=== PATIENT | female | born 1965 | race Hispanic/Latino ===

== ENCOUNTER 2023-11-27 08:22 | Observation (INO) | payer OTHER, SELFPAY ==
--- OUTSIDE RECORDS SUMMARY | 2023-11-27 08:27 | XMS REPORT | Continuity of Care Document ---
Author Name Unknown Address [address] [facility] [address] [place], [place] [id number] [place] [address] thconnect Address [address] [facility] [address] [place] [address] Care Team Providers Care Spanish Linguist Name Role Phone PCP, PATIENT DOES NOT HAVE A Primary Care Physic nia Unavailable ROWAN GOMEZ Attending Clinician Unavailable KODAK SNYDER Attending Clinician Unavailable VIKTOR CRUZ Attending Clinician Unavailab le [id number] Attending Clinician Unavailable YAEL WARREN Attending Clinician Unava ilable [id number] Attending Clinician Unavailable Tamar Grewal Attending Clinician [phone] Tamar MUELLER Attending Clinician Unavailable WHITNEY CASTILLO Attending Clinician UnavailCARMEN Oliveira Attending Clinician Unavailable Carmen Magallanes DO Attending Clinician + Doctor Unassigned, [place] Attending Clinician U Kristy Garza Attending Clinician [phone] Olivia Vargas MD Attending Clinician + OLIVIA VARGAS Attending Clinician Unavailable CARMEN MAGALLANES Admitting Clinician Unavailable KRISTY STRICKLAND Admitting Clinician Unavailable Payers Payer Name Policy Type Policy Number Effective Date Expirati on Date Source [facility] JIMBO WINTER COPAY FOCUS 9 [id number] 2023 00:00:00 COMMERCIAL NON-CONTRACT GENERIC [id number] 2023 00:00:00 [facility] [id number] 2015 00:00:00 Problems Condition Name Condition Details Condition Category Status Onset Date Resolution Date Last Treatment Date Treating Clinician Comments Source Acute serous otitis media, right ear Acute serous otitis media, right ear Disease Active 05-20 00:00: 00 Adeline Gudino Externa l No known active problems No known active problems Disease [facility] Allergies, Adverse Reactions, Alerts Allergy Name Allergy Type Status Severity Reaction(s) Onset Date Inactive Date Treating Clinician Comments Source NO KNOWN ALLERGIE S Drug Class Active [facility] Social History Social Habit Start Date Stop Date Quantity Comments Source [facility] intake 2023-10-12 00:00:00 2023-10-12 00:00:00 Current drinker of alcohol (finding) Adeline Ca - External Alcohol intake 2023-05-11 00:00:00 2023-05-11 00:00:00 Current drinker of alcohol (finding) Adeline Ca - External Alcohol Comment 2023-04-06 00:00:00 2023-04-06 00:00:00 occasionally Adeline Ca - External Tobacco use and exposure 2023-04-06 00:00:00 2023-04-06 00:00:00 Smokeless tobacco non-user Adeline Ca - External History of Social function 2023-04-06 00:00:00 2023-04-06 00:00:00 Adeline Ca - External Exposure to SARS-CoV-2 (event) 2022-01-07 00:00:00 2022-01-17 07:46:00 Not sure [facility] Sex assigned at 1965 00:00:00 1965 00:[birth year]:00 Adeline Gudino External Smoking Status Start Date Stop Date Source Tobacco smoking consumption unknown [facility] Never smoked tobacco Adeline Jack Medications Ordered Medication Name Filled Medication Name Start Date Stop Date Current Medication? Ordering Clinician Indication Dosage Frequency Signature (SIG) Comments Components Source Ibuprofen (MOTRIN) 200 MG oral Tablet 10-11 10:11: 46 Yes 200mg Q.25D Take 1 tablet (200 mg total) by mouth every 6 hours as needed. Adeline mancia Pregabalin (Lyrica) 50 MG oral Capsule 10-11 00:00: 11-11 04:59 :00 Yes [id number] 50mg Q.5D Take 1 capsule (50 mg total) by mouth 2 times daily. Adeline mancia Folic Acid 1 MG oral tablet 10-07 00:00: 00 Yes [id number] TAKE 1 TABLET(1 MG) BY MOUTH DAILY. EXCEPT FOR DAYS DOING METHOTREXA TE Adeline mancia predniSONE (DELTASONE) 5 MG oral Tablet 09-26 00:00: 10-27 04:59 :00 Yes [id number] 15mg QD Take 3 tablets (15 mg total) by mouth daily. Adeline mancia Celecoxib 200 MG oral Capsule 09-05 00:00: 00 Yes [id number] 200mg Q.5D Take 1 capsule (200 mg total) by mouth 2 times daily as needed for pain. Adeline mancia Ibuprofen (MOTRIN) 200 MG oral Tablet 08-30 14:52: 37 Yes 200mg Q.25D Take 1 tablet (200 mg total) by mouth every 6 hours as needed. Adeline mancia Certolizuma b Pegol (Cimzia Starter Kit) 6 X 200 MG/ML subcutaneou s Prefilled Syringe Kit 08-30 00:00: 00 Yes [id number] 400 mg every 2 weeks for 3 doses then 400 mg every 4 weeks. Adeline mancia predniSONE (DELTASONE) 5 MG oral Tablet 08-30 00:00: 00 09-30 04:59 :00 Yes [id number] 15mg QD Take 3 tablets (15 mg total) by mouth daily. Adeline mancia Tofacitinib Citrate ER (Xeljanz XR) 11 MG oral TABLET SR 24 HR 7-09 00:00: 00 08-30 00:00 :00 No 11mg QD Take 11 mg by mouth daily. Adeline mancia Famotidine (PEPCID) 20 MG oral tablet 7-05 00:00: 00 Yes [id number] 20mg Q.5D Take 1 tablet (20 mg total) by mouth 2 times daily. Adeline mancia Ibuprofen (MOTRIN) 200 MG oral Tablet - 15:56: 38 Yes 200mg Q.25D Take 1 tablet (200 mg total) by mouth every 6 hours as needed. Adeline mancia Triamcinolo ne Acetonide 0.1 % apply externally Cream 08-02 00:00: 00 08-31 04:59 :00 No [id number] Apply to affected area twice a day. Adeline mancia Ibuprofen (MOTRIN) 200 MG oral Tablet -31 14:35: 34 Yes 200mg Q.25D Take 1 tablet (200 mg total) by mouth every 6 hours as needed. Adeline mancia Pregabalin (Lyrica) 50 MG oral Capsule -31 00:00: 00 10-11 00:00 :00 No [id number] 50mg Q.5D Take 1 capsule (50 mg total) by mouth 2 times daily. Adeline mancia Folic Acid 1 MG oral tablet -28 00:00: 00 Yes [id number] TAKE 1 TABLET(1 MG) BY MOUTH DAILY. EXCEPT FOR DAYS DOING METHOTREXA TE Adeline mancia Celecoxib 200 MG oral Capsule -23 00:00: 00 Yes [id number] 200mg Q.5D Take 1 capsule (200 mg total) by mouth 2 times daily as needed for pain. Adeline mancia Tofacitinib Citrate ER (Xeljanz XR) 11 MG oral TABLET SR 24 HR 06-06 00:00: 00 08-06 04:59 :00 No [id number] 11mg Take 11 mg by mouth daily. Adeline mancia methylpredn isolone sod succ (SOLU-MEDRO L) injection 125 mg 05-30 00:15: 00 05-29 23:26 :00 No 125mg 125 mg, Intravenou s, ONCE, 1 dose, On Sun05/30/23 at 1915, [facility] diphenhydrA MINE (BENADRYL) injection 25 mg 05-30 00:15: 00 05-29 23:23 :00 No 25mg 25 mg, Slow IV Push, ONCE, 1 dose, On Sun05/30/23 at 1915, STAT [facility] famotidine (PEPCID (PF)) injection 20 mg 05-29 23:15: 00 05-29 23:23 :00 No 20mg 20 mg, Slow IV Push, ONCE, 1 dose, On Sun05/30/23 at 1815, [facility] predniSONE 20 mg tablet 05-29 00:00: 00 Yes [id number] 1 PO BID x 4 days [facility] Adalimumab (Humira, 2 Syringe,) 40 MG/0.4ML subcutaneou s Prefilled Syringe Kit (Citrate-fr ee) 05-20 15:42: 55 05-20 00:00 :00 No Inject into the skin. Adeline mancia Ibuprofen (MOTRIN) 200 MG oral Tablet 05-20 15:38: 59 Yes 200mg Q.25D Take 1 tablet (200 mg total) by mouth every 6 hours as needed. Adeline mancia Celecoxib (CeleBREX) 200 MG oral Capsule 05-20 00:00: 00 Yes [id number] 200mg Take 1 capsule (200 mg total) by mouth 2 times daily. Adeline mancia Amoxicillin -Pot Clavulanate 500-125 MG oral Tablet 05-20 00:00: 00 08-02 00:00 :00 No [id number] 1{tbl} Take 1 tablet by mouth every 12 hours. Adeline mancia Tofacitinib Citrate ER (Xeljanz XR) 11 MG oral TABLET SR 24 HR 05-13 00:00: 00 05-20 00:00 :00 No [id number] 11mg Take 11 mg by mouth daily. Adeline mancia Famotidine (PEPCID) 20 MG oral tablet 05-10 12:32: 48 05-10 00:00 :00 No 20mg Take 1 tablet (20 mg total) by mouth 2 times daily. Adeline mancia predniSONE (DELTASONE) 5 MG oral Tablet 05-10 12:32: 48 05-10 00:00 :00 No 5mg Take 1 tablet (5 mg total) by mouth daily. Adeline mancia Ibuprofen (MOTRIN) 200 MG oral Tablet 05-10 10:52: 44 Yes 200mg Q.25D Take 1 tablet (200 mg total) by mouth every 6 hours as needed. Adeline mancia Adalimumab (Humira, 2 Pen,) 40 MG/0.8ML subcutaneou s Pen-injecto r Kit 05-10 10:52: 29 Yes 40mg Inject 40 mg into the skin. Adeline mancia Humira, 2 Pen, 40 MG/0.4ML subcutaneou s Pen-injecto r Kit (Citrate-fr ee) 05-10 00:00: 00 Yes Adeline mancia Famotidine (PEPCID) 20 MG oral tablet 05-10 00:00: 00 08-09 04:59 :00 No [id number] 20mg Take 1 tablet (20 mg total) by mouth 2 times daily. Adeline mancia predniSONE (DELTASONE) 5 MG oral Tablet 05-10 00:00: 00 06-10 04:59 :00 No [id number] 5mg Take 1 tablet (5 mg total) by mouth daily. Adeline mancia Methotrexat e 25 MG/ML subcutaneou s Solution Prefilled Syringe 04-06 18:30: 04-06 00:00 :00 No 25mg Inject 25 mg into the skin once a week. Adeline mancia Folic Acid 1 MG oral tablet 04-06 18:30: 26 04-06 00:00 :00 No 1mg Take 1 tablet (1 mg total) by mouth daily Except for days doing methotrexa te. Adeline mancia Famotidine (PEPCID) 20 MG oral tablet 04-06 10:34: 42 Yes 20mg Take 1 tablet (20 mg total) by mouth 2 times daily. Adeline mancia Adalimumab (Humira, 2 Pen,) 40 MG/0.8ML subcutaneou s Pen-injecto r Kit 04-06 10:34: 42 Yes 40mg Inject 40 mg into the skin. Adeline mancia predniSONE (DELTASONE) 5 MG oral Tablet 04-06 10:34: 42 Yes 5mg Take 1 tablet (5 mg total) by mouth daily. Adeline mancia Folic Acid 1 MG oral tablet 04-06 00:00: 00 07-05 04:59 :00 No [id number] 1mg Take 1 tablet (1 mg total) by mouth daily Except for days doing methotrexa te. Adeline mancia Methotrexat e 25 MG/ML subcutaneou s Solution Prefilled Syringe 04-06 00:00: 00 05-20 00:00 :00 No [id number] 17.5mg Inject 17.5 mg into the skin once a week. Adeline mancia Methotrexat e 50 MG/2ML injection Solution 03-14 00:00: 00 Yes INJECT 0.7 ML UNDER THE SKIN EVERY WEEK Adeline mancia FLUTICASONE PROPIONATE, NASAL, (Flonase Allergy Relief) 50 MCG/ACT nasal Suspension 02-21 00:00: 00 Yes Adeline mancia Cetirizine (ZYRTEC) 10 MG oral Tablet 1-10 00:00: 00 Yes Adeline mancia hydrOXYzine HCl 25 MG oral Tablet 2022-02 2- 00:00: 00 Yes Adeline mancia Albuterol (PROVENTIL) (2.5 MG/3ML) 0.083% inhalation Inhalant Solution 2022-02 2- 00:00: 00 Yes Adeline mancia TAKE 1 TABLET AT BEDTIME. 1-06 00:00: 00 No Dose Unknown 2021-02 2-16 00:00: 00 No Dose Unknown 2021-02-16 00:00: 00 No Dose Unknown 2021-02-16 00:00: 00 No Dose Unknown 2021-02-16 00:00: 00 No TAKE 1 TABLET DAILY. 2021-02 2-15 00:00: 00 No TAKE 1 TABLET BY MOUTH ONCE DAILY 2021-02 2-15 00:00: 00 No TAKE 1 TABLET BY MOUTH ONCE DAILY NEEDED 2021-02 2-15 00:00: 00 No Dose Unknown 2021-02 2-15 00:00: 00 No TAKE 1 TABLET BY MOUTH ONCE DAILY 2021-02 2-15 00:00: 00 No TAKE 1 TABLET BY MOUTH TWICE DAILY 2021-02 2-15 00:00: 00 No TAKE 4 TABLETS BY MOUTH ONCE DAILY FOR 1 WEEK, THEN TAKE 3 TABLETS ONCE A DAY FOR 1 WEEK, THEN TAKE 2 TABLETS ONCE A DAY FOR 1 WEEK, THEN TAKE 1 TABLET ONCE A DAY FOR 8 WEEKS 2021-02 2-15 00:00: 00 No TAKE 1 TABLET DAILY. 2021-02 2-15 00:00: 00 No TAKE 1 TABLET BY MOUTH ONCE DAILY 2021-02 2-15 00:00: 00 No TAKE 1 TABLET BY MOUTH ONCE DAILY NEEDED 2021-02 2-15 00:00: 00 No Dose Unknown 2021-02 2-15 00:00: 00 No TAKE 1 TABLET BY MOUTH ONCE DAILY 2021-02 2-15 00:00: 00 No TAKE 1 TABLET BY MOUTH TWICE DAILY 2021-02 2-15 00:00: 00 No TAKE 4 TABLETS BY MOUTH ONCE DAILY FOR 1 WEEK, THEN TAKE 3 TABLETS ONCE A DAY FOR 1 WEEK, THEN TAKE 2 TABLETS ONCE A DAY FOR 1 WEEK, THEN TAKE 1 TABLET ONCE A DAY FOR 8 WEEKS 2021-02 00:00: 00 No ketorolac (TORADOL) injection 15 mg 2021-02 18:00: 00 01-18 17:59 :00 No 15mg 15 mg, Slow IV Push, Q6H, 4 doses, First dose on Sun01/17/22 at 1200, Last dose on Sun01/18/22 at 0600, Routine [facility] HYDROcodone -acetaminop hen (NORCO) 10-325 mg tablet 1 tablet 2021-02 16:00: 00 01-17 15:10 :00 No 1{tbl} 1 tablet, Oral, ONCE, 1 dose, On Sun01/17/22 at 1000, Routine [facility] NaCl 0.9% (NS) bolus infusion 1,000 mL 2021-02 14:45: 00 01-17 15:30 :00 No 1000mL at 999 mL/hr, 1,000 mL, IV Piggyback, ONCE, 1 dose, On Sun01/17/22 at 0845, STAT [facility] ondansetron (ZOFRAN (PF)) injection 4 mg 2021-02 13:45: 00 01-17 13:55 :00 No 4mg 4 mg, Slow IV Push, ONCE, 1 dose, On Sun01/17/22 at 0745, Routine [facility] naproxen sodium 550 mg tablet 2021-02 00:00: 00 Yes [id number] 9100 550mg Take 1 tablet by mouth 2 (two) times daily with meals. [facility] methylPREDN ISolone 4 mg tablets 2021-02 00:00: 00 Yes [id number] 9100 Take by mouth SEE-INSTRU CTIONS. follow package directions [facility] methocarbam oL 500 mg tablet 2021-02 00:00: 00 01-23 05:59 :00 No [id number] 500mg Take 1 tablet by mouth 3 (three) times daily for 5 days. [facility] TAKE 1 TABLET AT BEDTIME. 2021-02 0-15 00:00: 00 No FENTanyl PF (SUBLIMAZE (PF)) injection 50 mcg 08-18 03:00: 00 08-18 03:10 :00 No 50ug 50 mcg, Slow IV Push, ONCE, 1 dose, On Sun08/17/21 at 2200, STAT [facility] NaCl 0.9% (NS) bolus infusion 1,000 mL 08-18 02:00: 00 08-18 03:10 :00 No 1000mL at 999 mL/hr, 1,000 mL, IV Infusion, ONCE, 1 dose, On Sun08/17/21 at 2100, STAT [facility] ketorolac (TORADOL) injection 15 mg 08-18 02:00: 00 08-18 02:06 :00 No 15mg 15 mg, Slow IV Push, ONCE, 1 dose, On Sun08/17/21 at 2100, [facility] FENTanyl PF (SUBLIMAZE (PF)) injection 50 mcg 08-18 01:30: 00 08-18 01:25 :00 No 50ug 50 mcg, Slow IV Push, ONCE, 1 dose, On Sun08/17/21 at 2030, STAT [facility] NaCl 0.9% (NS) bolus infusion 1,000 mL 08-18 01:15: 00 08-18 03:10 :00 No 1000mL at 999 mL/hr, 1,000 mL, IV Infusion, ONCE, 1 dose, On Sun08/17/21 at 2015, [facility] acetaminoph en-codeine 300-30 mg tablet 08-17 00:00: 00 09-15 04:59 :00 No [id number] 1{tbl} Take 1 tablet by mouth every 6 (six) hours as needed for Pain (scale 4-6) for up to 28 days. Indication s: acute pain [facility] Dose Unknown 11 00:00: 00 No Dose Unknown 11 00:00: 00 No Dose Unknown 2022-0 5-10 00:00: 00 No Dose Unknown 2022-0 5-10 00:00: 00 No Dose Unknown 2022-0 5-09 00:00: 00 No Dose Unknown 2022-0 5-09 00:00: 00 No Dose Unknown 2022-0 5-06 00:00: 00 No Dose Unknown 2022-0 5-06 00:00: 00 No Dose Unknown 2022-0 5-06 00:00: 00 No Dose Unknown 2022-0 5-06 00:00: 00 No Dose Unknown 2022-0 5-06 00:00: 00 No Dose Unknown 2022-0 5-06 00:00: 00 No Dose Unknown 2022-0 5-06 00:00: 00 No Dose Unknown 2022-0 5-06 00:00: 00 No Dose Unknown 2022-0 5-06 00:00: 00 No Dose Unknown 2022-0 5-06 00:00: 00 No Dose Unknown 2022-0 5-06 00:00: 00 No Dose Unknown 2022-0 5-06 00:00: 00 No Dose Unknown 2022-0 3-22 00:00: 00 No Dose Unknown 2022-0 3-22 00:00: 00 No Dose Unknown 2022-0 3-22 00:00: 00 No Dose Unknown 2022-0 3-22 00:00: 00 No Dose Unknown 2022-0 3-22 00:00: 00 No Dose Unknown 2022-0 3-22 00:00: 00 No Dose Unknown 2022-0 3-22 00:00: 00 No Dose Unknown 2022-0 3-22 00:00: 00 No Dose Unknown 2022-0 3-22 00:00: 00 No Dose Unknown 2022-0 3-22 00:00: 00 No TAKE 1 TABLET AT BEDTIME. 2022-0 2-01 00:00: 00 No Dose Unknown 2022-0 2-01 00:00: 00 No TAKE 1 TABLET AT BEDTIME. 2022-0 2-01 00:00: 00 No Dose Unknown 2022-0 2-01 00:00: 00 No Dose Unknown 2021-1 0-20 00:00: 00 No Dose Unknown 2021-1 0-20 00:00: 00 No Dose Unknown 2021-0 8-04 00:00: 00 No Dose Unknown 2020-0 8-04 00:00: 00 No TAKE 1 TABLET AT BEDTIME. 0 7- 00:00: 00 No sertraline 50 mg tablet 0 7 00:00: 00 No 1mg Dose Unknown 0 08-18 00:00: 00 No TAKE 1 TABLET AT BEDTIME. 0 08-18 00:00: 00 No sertraline 50 mg tablet 0 7 00:00: 00 No 1mg Dose Unknown 0 08-18 00:00: 00 No sertraline 50 mg tablet 0 6 00:00: 00 No 1mg mirtazapine 7.5 mg tablet 0 6 00:00: 00 No 1mg sertraline 50 mg tablet 0 6 00:00: 00 No 1mg mirtazapine 7.5 mg tablet 0 6 00:00: 00 No 1mg Dose Unknown 2020-0 5-26 00:00: 00 No Dose Unknown 2020-0 5-26 00:00: 00 No Dose Unknown 2020-0 5-26 00:00: 00 No Dose Unknown 2020-0 5-26 00:00: 00 No Dose Unknown 2020-0 5-12 00:00: 00 No Dose Unknown 2020-0 5-12 00:00: 00 No Dose Unknown 2020-0 3-01 00:00: 00 No Dose Unknown 2020-0 3-01 00:00: 00 No Dose Unknown 2020-0 2-24 00:00: 00 No Dose Unknown 2020-0 2-24 00:00: 00 No Dose Unknown 2019-1 2-03 00:00: 00 No Dose Unknown 1 2-03 00:00: 00 No Dose Unknown 2019-0 9-09 00:00: 00 No Dose Unknown 0 9- 00:00: 00 No azithromyci n 250 mg tablet 0 06-10 00:00: 00 No mg azithromyci n 250 mg tablet 06-10 00:00: 00 No mg ipratropium -albuterol 0.5 mg-3 mg(2.5 mg base)/3 mL nebulizatio n soln 06-10 00:00: 00 No 1mg base)/3 mL ipratropium -albuterol 0.5 mg-3 mg(2.5 mg base)/3 mL nebulizatio n soln 06-10 00:00: 00 No 1mg base)/3 mL ibuprofen (ADVIL) 200 mg tablet 03-09 14:51: 10 Yes 200mg Take 200 mg by mouth every 6 (six) hours as needed. [facility] ibuprofen (MOTRIN) 600 mg tablet 03-09 00:00: 00 Yes 600mg Take 1 Tab by mouth every 6 (six) hours as needed for Pain (scale 4-6) for up to 30 doses. [facility] Immunizations Ordered Immunization Name Filled Immunization Name Date Status Comments Source Moderna COVID-19 Vaccine 2020-07-14 00:00:00 Completed Moderna COVID-19 Vaccine 2020-07-14 00:00:00 Completed Moderna COVID-19 Vaccine 2020-06-15 00:00:00 Completed Moderna COVID-19 Vaccine 2020-06-15 00:00:00 Completed Covid-19 Vaccine Moderna (Spikevax), Mrna-lnp, Bhavesh Protein, Pf Unknown Completed Adeline Ca External Covid-19 Vaccine Moderna (Spikevax), Mrna-lnp, Bhavesh Protein, Pf Unknown Completed Adeline Gudino External Covid-19 Vaccine Moderna (Spikevax), Mrna-lnp, Bhavesh Protein, Pf Unknown Completed Adeline Ca - External Covid-19 Vaccine Moderna (Spikevax), Mrna-lnp, Bhavesh Protein, Pf Unknown Completed Adeline Ca - External Covid-19 Vaccine Moderna (Spikevax), Mrna-lnp, Bhavesh Protein, Pf Unknown Completed Adeline Ca - External Vital Signs Vital Name Observation Time Observation Value Comments S ource Systolic blood pressure 2023-10-12 15:08:00 112 mm[Hg] Adeline Hirsch ld - External Diastolic blood pressure 2023-10-12 15:08:00 78 mm[Hg] Adeline Hirsch ld - External Heart rate 2023-10-12 15:08:00 112 /min Kelse y Seybold - External Body weight 2023-10-12 15:08:00 93.441 kg Jaquelin ey Seybold - External BMI 2023-10-12 15:08:00 36.49 kg/m2 Jaquelin ey Seybold - External Systolic blood pressure 2023-08-31 19:53:00 115 mm[Hg] Adeline Seybo ld - External Diastolic blood pressure 2023-08-31 19:53:00 79 mm[Hg] Adeline Seybo ld - External Heart rate 2023-08-31 19:53:00 102 /min Kelse y Seybold - External Body height 2023-08-31 19:53:00 160 cm Jaquelin ey Seybold - External Body weight 2023-08-31 19:53:00 92.534 kg Jaquelin ey Seybold - External BMI 2023-08-31 19:53:00 36.14 kg/m2 Jaquelin ey Seybold - External Systolic blood pressure 2023-08-03 20:40:00 115 mm[Hg] Adeline Seybo ld - External Diastolic blood pressure 2023-08-03 20:40:00 84 mm[Hg] Adeline Seybo ld - External Heart rate 2023-08-03 20:40:00 85 /min Kelse y Seybold - External Body temperature 2023-08-03 20:40:00 35.94 April Adeline Seybold - External Respiratory rate 2023-08-03 20:40:00 16 /min Adeline Seybold - External Body height 2023-08-03 20:40:00 160 cm Jaquelin ey Seybold - External Body weight 2023-08-03 20:40:00 93.441 kg Jaquelin ey Seybold - External BMI 2023-08-03 20:40:00 36.49 kg/m2 Jaquelin ey Seybold - External Oxygen saturation in Arterial blood by Pulse oximetry 2023-08-03 20:40:00 98 /min Adeline Seybo ld - External Systolic blood pressure 2023-07-13 19:36:00 128 mm[Hg] Adeline Seybo ld - External Diastolic blood pressure 2023-07-13 19:36:00 87 mm[Hg] Adeline Seybo ld - External Heart rate 2023-07-13 19:36:00 80 /min Kelse y Seybold - External Body weight 2023-07-13 19:36:00 90.719 kg Jaquelin ey Seybold - External BMI 2023-07-13 19:36:00 35.43 kg/m2 Jaquelin ey Seybold - External Systolic blood pressure 2023-05-31 00:00:00 111 mm[Hg] [facility] Diastolic blood pressure 2023-05-31 00:00:00 81 mm[Hg] [facility] Heart rate 2023-05-31 00:00:00 89 /min [facility] Body temperature 2023-05-31 00:00:00 37.22 April [facility] Respiratory rate 2023-05-31 00:00:00 21 /min [facility] Oxygen saturation in Arterial blood by Pulse oximetry 2023-05-31 00:00:00 96 /min [facility] Body height 2023-05-30 22:49:00 160 cm [facility] Body weight 2023-05-30 22:49:00 87.998 kg [facility] BMI 2023-05-30 22:49:00 34.37 kg/m2 [facility] Systolic blood pressure 2023-05-21 20:30:00 108 mm[Hg] Adeline Seybo ld - External Diastolic blood pressure 2023-05-21 20:30:00 64 mm[Hg] Adeline Seybo ld - External Heart rate 2023-05-21 20:30:00 98 /min Kelse y Seybold - External Body temperature 2023-05-21 20:30:00 36.83 April Adeline Seybold - External Respiratory rate 2023-05-21 20:30:00 16 /min Adeline Seybold - External Body height 2023-05-21 20:30:00 160 cm Jaquelin ey Seybold - External Body weight 2023-05-21 20:30:00 87.544 kg Jaquelin ey Seybold - External BMI 2023-05-21 20:30:00 34.19 kg/m2 Jaquelin ey Seybold - External Oxygen saturation in Arterial blood by Pulse oximetry 2023-05-21 20:30:00 98 /min Adeline Milianybo ld - External Systolic blood pressure 2023-05-11 15:55:00 117 mm[Hg] Adeline Seybo ld - External Diastolic blood pressure 2023-05-11 15:55:00 78 mm[Hg] Adeline Seybo ld - External Heart rate 2023-05-11 15:55:00 115 /min Kelse y Seybold - External Body weight 2023-05-11 15:55:00 87.998 kg Jaquelin ey Seybold - External BMI 2023-05-11 15:55:00 34.37 kg/m2 Jaquelin ey Seybold - External Systolic blood pressure 2023-04-06 16:24:00 107 mm[Hg] Adeline Seybo ld - External Diastolic blood pressure 2023-04-06 16:24:00 81 mm[Hg] Adeline Seybo ld - External Heart rate 2023-04-06 16:24:00 108 /min Kelse y Seybold - External Respiratory rate 2023-04-06 16:24:00 18 /min Adeline Seybold - External Body height 2023-04-06 16:24:00 160 cm Jaquelin ey Seybold - External Body weight 2023-04-06 16:24:00 87.816 kg Jaquelin ey Seybold - External BMI 2023-04-06 16:24:00 34.29 kg/m2 Jaquelin ey Seybold - External Systolic blood pressure 2022-01-17 15:00:00 152 mm[Hg] [facility] Diastolic blood pressure 2022-01-17 15:00:00 97 mm[Hg] [facility] Heart rate 2022-01-17 15:00:00 85 /min [facility] Respiratory rate 2022-01-17 15:00:00 14 /min [facility] Oxygen saturation in Arterial blood by Pulse oximetry 2022-01-17 15:00:00 98 /min [facility] Body temperature 2022-01-17 13:31:00 36.72 April [facility] Body weight 2022-01-17 13:31:00 90.719 kg [facility] BMI 2022-01-17 13:31:00 35.43 kg/m2 [facility] Heart rate 2021-08-18 03:05:00 93 /min [facility] Respiratory rate 2021-08-18 03:05:00 18 /min [facility] Oxygen saturation in Arterial blood by Pulse oximetry 2021-08-18 03:05:00 94 /min [facility] Systolic blood pressure 2021-08-18 03:05:00 103 mm[Hg] [facility] Diastolic blood pressure 2021-08-18 03:05:00 67 mm[Hg] [facility] Body temperature 2021-08-17 23:31:00 36.5 April [facility] Body height 2021-08-17 23:31:00 160 cm [facility] Body weight 2021-08-17 23:31:00 84.823 kg [facility] BMI 2021-08-17 23:31:00 33.13 kg/m2 [facility] BP Systolic 2022-02-16 14:51:00 117 mm[Hg] BP Diastolic 2022-02-16 14:51:00 82 mm[Hg] Weight Measured 2022-02-16 14:51:00 209.00 pounds Height Measured 2022-02-16 14:51:00 62.00 inches Body Temperature 2022-02-16 14:51:00 98.40 degrees Heart Rate 2022-02-16 14:51:00 115.00 /min Respiratory Rate 2022-02-16 14:51:00 BP Systolic 2022-02-13 10:18:00 BP Diastolic 2022-02-13 10:18:00 Weight Measured 2022-02-13 10:18:00 200.00 pounds Height Measured 2022-02-13 10:18:00 62.00 inches Body Temperature 2022-02-13 10:18:00 Heart Rate 2022-02-13 10:18:00 Respiratory Rate 2022-02-13 10:18:00 BP Systolic 2021-06-17 14:42:00 114 mm[Hg] BP Diastolic 2021-06-17 14:42:00 73 mm[Hg] Weight Measured 2021-06-17 14:42:00 187.40 pounds Height Measured 2021-06-17 14:42:00 62.60 inches Body Temperature 2021-06-17 14:42:00 98.10 degrees Heart Rate 2021-06-17 14:42:00 98.00 /min Respiratory Rate 2021-06-17 14:42:00 16.00 /min BP Systolic 2020-12-06 15:41:00 135 mm[Hg] BP Diastolic 2020-12-06 15:41:00 88 mm[Hg] Weight Measured 2020-12-06 15:41:00 184.60 pounds Height Measured 2020-12-06 15:41:00 62.60 inches Body Temperature 2020-12-06 15:41:00 99.30 degrees Heart Rate 2020-12-06 15:41:00 112.00 /min Respiratory Rate 2020-12-06 15:41:00 BP Systolic 2020-09-15 16:44:00 103 mm[Hg] BP Diastolic 2020-09-15 16:44:00 63 mm[Hg] Weight Measured 2020-09-15 16:44:00 177.20 pounds Height Measured 2020-09-15 16:44:00 62.60 inches Body Temperature 2020-09-15 16:44:00 98.30 degrees Heart Rate 2020-09-15 16:44:00 78.00 /min Respiratory Rate 2020-09-15 16:44:00 BP Systolic 2020-04-07 08:13:00 118 mm[Hg] BP Diastolic 2020-04-07 08:13:00 79 mm[Hg] Weight Measured 2020-04-07 08:13:00 183.80 pounds Height Measured 2020-04-07 08:13:00 62.60 inches Body Temperature 2020-04-07 08:13:00 98.00 degrees Heart Rate 2020-04-07 08:13:00 81.00 /min Respiratory Rate 2020-04-07 08:13:00 17.00 /min BP Systolic 2019-10-22 10:15:00 117 mm[Hg] BP Diastolic 2019-10-22 10:15:00 77 mm[Hg] Weight Measured 2019-10-22 10:15:00 187.80 pounds Height Measured 2019-10-22 10:15:00 62.60 inches Body Temperature 2019-10-22 10:15:00 98.70 degrees Heart Rate 2019-10-22 10:15:00 86.00 /min Respiratory Rate 2019-10-22 10:15:00 16.00 /min BP Systolic 2018-06-10 14:08:00 104 mm[Hg] BP Diastolic 2018-06-10 14:08:00 74 mm[Hg] Weight Measured 2018-06-10 14:08:00 185.20 pounds Height Measured 2018-06-10 14:08:00 Body Temperature 2018-06-10 14:08:00 98.10 degrees Heart Rate 2018-06-10 14:08:00 105.00 /min Respiratory Rate 2018-06-10 14:08:00 16.00 /min Procedures Procedure Date / Time Performed Performing Clinician Source CT ABDOMEN PELVIS WO CONTRAST 2022-01-17 13:53:00 Carmen Magallanes [facility] POCT TEST 2022-01-17 13:47:00 Shabnam Magallanes [facility] COMP. METABOLIC PANEL (58193) 2022-01-17 13:43:00 Singer Carmen [facility] CBC WITH DIFF 2022-01-17 13:43:00 Carmen Magallanes [facility] URINALYSIS 2022-01-17 13:39:00 Carmen Magallanes [facility] CONSENT/REFUSAL FOR DIAGNOSIS AND TREATMENT 2022-01-17 13:23:09 Doctor Unassigned, Conger [facility] URINALYSIS 2021-08-18 01:25:00 Kristy Strickland [facility] XR CHEST 1 VW 2021-08-18 00:48:00 Kristy Strickland [facility] EKG-12 LEAD 2021-08-18 00:43:08 Kristy Strickland [facility] LACTIC ACID WHOLE BLOOD 2021-08-18 00:27:00 Jessica Strickland [facility] COVID-19 (ID NOW RAPID TESTING) 2021-08-17 23:55:00 Kristy Strickland [facility] TROPONIN I 2021-08-17 23:53:00 Kristy Strickland [facility] COMP. METABOLIC PANEL (35553) 2021-08-17 23:53:00 Kristy Strickland [facility] CBC WITH DIFF 2021-08-17 23:53:00 Kristy Strickland [facility] PROTHROMBIN TIME / INR 2021-08-17 23:53:00 Ryanne Strickland [facility] N-TERMINAL PRO-BNP 2021-08-17 23:53:00 Manju Strickland [facility] NOTICE OF PRIVACY PRACTICES 2021-08-17 23:42:49 Doctor Unassigned, Conger [facility] CONSENT/REFUSAL FOR DIAGNOSIS AND TREATMENT 2021-08-17 23:26:34 Doctor Unassigned, Conger [facility] Plan of Care Planned Activity Planned Date Details Comments Source Goal Plan of Care Note [code = 58661-9] Goal Plan of Care Note [code = 91355-8] Goal Plan of Care Note [code = 78259-8] Goal Plan of Care Note [code = 23967-2] Goal Plan of Care Note [code = 47034-0] Goal Plan of Care Note [code = 00264-8] Goal Plan of Care Note [code = 71928-4] Goal Plan of Care Note [code = 91469-8] Goal Plan of Care Note [code = 06797-8] Goal Plan of Care Note [code = 42124-3] Goal Plan of Care Note [code = 78289-0] Goal Plan of Care Note [code = 67353-9] Goal Plan of Care Note [code = 90402-3] Goal Plan of Care Note [code = 98575-6] Goal Plan of Care Note [code = 17954-9] Goal Plan of Care Note [code = 08077-3] Goal Plan of Care Note [code = 69820-3] Goal Plan of Care Note [code = 74670-8] Goal Plan of Care Note [code = 42620-8] Goal Plan of Care Note [code = 29734-0] Goal Plan of Care Note [code = 74148-9] Goal Plan of Care Note [code = 91073-5] Goal Plan of Care Note [code = 16079-9] Goal Plan of Care Note [code = 10294-1] Goal Plan of Care Note [code = 09049-7] Goal Plan of Care Note [code = 39696-9] Goal Plan of Care Note [code = 64101-1] Goal Plan of Care Note [code = 29470-0] Goal Plan of Care Note [code = 55014-4] Goal Plan of Care Note [code = 80678-7] Goal Plan of Care Note [code = 41595-3] Goal Plan of Care Note [code = 20548-7] Goal Plan of Care Note [code = 68730-3] Goal Plan of Care Note [code = 67742-3] Goal Plan of Care Note [code = 37231-2] Goal Plan of Care Note [code = 91146-9] Goal Plan of Care Note [code = 18125-2] Goal Plan of Care Note [code = 63309-7] Goal Plan of Care Note [code = 87775-5] Goal Plan of Care Note [code = 23226-2] Goal Plan of Care Note [code = 34968-3] Goal Plan of Care Note [code = 61260-2] Goal Plan of Care Note [code = 06724-0] Goal Plan of Care Note [code = 33426-8] Goal Plan of Care Note [code = 47627-9] Goal Plan of Care Note [code = 09273-6] Goal Plan of Care Note [code = 75918-7] Goal Plan of Care Note [code = 49220-6] Goal Plan of Care Note [code = 09829-6] Goal Plan of Care Note [code = 88517-1] Goal Plan of Care Note [code = 25665-3] Goal Plan of Care Note [code = 61214-9] Goal Plan of Care Note [code = 48417-3] Goal Plan of Care Note [code = 09500-6] Encounters Start Date/Time End Date/Time Encounter Type Admission Type Attending [facility] Care Facility Care Department Encounter ID Source 2023-12-14 10:00:00 2023-12-14 10:00:00 Outpatient ROWAN GOMEZ [id number] Adeline Ca 2023-11-30 11:15:00 2023-11-30 11:15:00 Outpatient ROWAN GOMEZ [id number] [facility] 2023-11-27 00:00:00 2023-11-27 00:00:00 Outpatient VANNAZAKDOAK Ozuna ADELINE TOMPKINS [id number] Adeline Seybold 2023-11-22 00:00:00 2023-11-22 00:00:00 Outpatient GOMEZ, ROWAN TOMPKINS [id number] Adeline Seybold 2023-11-20 00:00:00 2023-11-20 00:00:00 Outpatient GOMEZ, ROWAN TOMPKINS [id number] Adeline Seybold 2023-11-16 00:00:00 2023-11-16 00:00:00 Outpatient GOMEZ, ROWAN TOMPKINS [id number] [facility] 2023-11-15 00:00:00 2023-11-15 00:00:00 Outpatient GOMEZ, ROWAN TOMPKINS [id number] [facility] 2023-10-12 10:00:00 2023-10-12 10:00:00 Outpatient GOMEZ, ROWAN TOMPKINS [id number] Adeline Seybold 2023-10-08 00:00:00 2023-10-08 00:00:00 Outpatient GOMEZ, ROWAN TOMPKINS [id number] Adeline Seybold 2023-09-27 00:00:00 2023-09-27 00:00:00 Outpatient GOMEZ, ROWAN TOMPKINS [id number] Adeline Seybold 2023-09-04 00:00:00 2023-09-04 00:00:00 Outpatient VIKTOR CRUZ ADELINE TOMPKINS [id number] Adeline Seybold 2023-08-31 15:30:00 2023-08-31 15:30:00 Outpatient YHO814Erasmo TOMPKINS [id number] Adeline Seybold 2023-08-31 15:00:00 2023-08-31 15:00:00 Outpatient GOMEZ, ROWAN TOMPKINS [id number] Adeline Seybold 2023-08-24 10:30:00 2023-08-24 10:30:00 Outpatient GOMEZ, ROWAN TOMPKINS [id number] Adeline Seybold 2023-08-19 00:00:00 2023-08-19 00:00:00 Outpatient ROWAN GOMEZ ADELINE TOMPKINS [id number] Adeline [facility] 2023-08-16 00:00:00 2023-08-16 00:00:00 Outpatient ROWAN GOMEZ ADELINE TOMPKINS [id number] Adeline [facility] 2023-08-03 16:00:00 2023-08-03 16:00:00 Outpatient YAEL WARREN ADELINE TOMPKINS [id number] Adeline [facility] 2023-07-13 15:20:00 2023-07-13 15:20:00 Outpatient ADITI ADELINE TOMPKINS [id number] [facility] 2023-07-13 14:45:00 2023-07-13 14:45:00 Outpatient GOMEZYAMILE EspinalGLADYS [facility]INS [id number] [facility] 10:30:00 2023-07-13 10:30:00 Outpatient ROWAN GOMEZ ADELINE TOMPKINS [id number] [facility] 2023-07-07 00:00:00 2023-07-07 00:00:00 Outpatient YAMILE GOMEZGLADYS TOMPKINS [id number] [facility] 2023-06-18 00:00:00 2023-06-18 00:00:00 Outpatient VIKTOR CRUZ ADELINE TOMPKINS [id number] [facility] 2023-06-07 00:00:00 2023-06-07 00:00:00 Outpatient YAMILE GOMEZGLADYS TOMPKINS [id number] [facility] 2023-05-30 17:50:00 2023-05-30 19:43:[address] [facility] [id number] [id number] [facility] 2023-05-30 17:50:00 2023-05-30 19:43:00 Emergency X Tamar MUELLER [facility] ERT [id number] [facility] 2023-05-21 15:30:00 2023-05-21 15:30:00 Outpatient VIKTOR CRUZ [id number] Adeline [facility] 2023-05-14 00:00:00 2023-05-14 00:00:00 Outpatient ROWAN GOMEZ [id number] [facility] 2023-05-11 11:25:00 2023-05-11 11:25:00 Outpatient LABRajeev TOMPKINS [id number] Adeline [facility] 2023-05-11 10:45:00 2023-05-11 10:45:00 Outpatient GOMEZ, ROWAN TOMPKINS [id number] Adeline [facility] 2023-05-04 11:00:00 2023-05-04 11:00:00 Outpatient PATRICIA, ROWAN TOMPKINS [id number] Adeline [facility] 2023-05-04 10:00:00 2023-05-04 10:00:00 Outpatient GOMEZ, ROWAN TOMPKINS ADELINE [id number] [facility] 2023-04-20 12:15:00 2023-04-20 12:15:00 Outpatient WHITNEY CASTILLO [id number] [facility] 2023-04-06 11:15:00 2023-04-06 11:15:00 Outpatient LABRajeev TOMPKINS [id number] [facility] 2023-04-06 10:30:00 2023-04-06 10:30:00 Outpatient PATRICIA, ROWAN TOMPKINS ADELINE [id number] [facility] 2023-02-21 16:49:21 2023-02-21 16:49:21 Outpatient SFA SFA [id number] Matias Matias Prashant 2023-02-01 13:58:18 2023-02-01 13:58:18 Outpatient SFA SFA [id number] Matias F Prashant 2023-01-25 16:07:59 2023-01-25 16:07:59 Outpatient SFA SFA [id number] Matias Matias Prashant 2023-01-22 14:22:05 2023-01-22 14:22:05 Outpatient SFA SFA [id number] Matias Cerda 2022-10-17 16:37:46 2022-10-17 16:37:46 Outpatient SFA [facility] [id number] Matias Cerda 2022-08-18 08:32:51 2022-08-18 08:32:51 Outpatient SFA [facility] [id number] Matias Cerda 2022-02-22 15:12:18 2022-02-22 15:12:18 Outpatient SFA [facility] [id number] Matias Cerda 2022-02-16 14:43:01 2022-02-16 14:43:01 Outpatient [facility] [id number] Matias Cerda 2022-02-16 00:00:00 2022-02-16 00:00:00 Outpatient Visit [id number] 2022-02-14 12:00:15 2022-02-14 12:00:15 Outpatient [facility] 102 Matias Cerda 2022-02-13 00:00:00 2022-02-13 00:00:00 Outpatient Visit [id number] 2949-12-06 07:33:00 2022-01-17 09:49:00 Emergency X CARMEN MAGALLANES [facility] ERT [id number] [facility] 2022-01-17 07:33:00 2022-01-17 09:49:00 Emergency Carmen Magallanes [facility] ..114 350.1.13.10 [id number] [id number] [facility] 2022-01-17 00:00:00 2022-01-17 00:00:00 Orders Only Doctor Unassigned, Conger [facility] 1.840.114 [id number] 4.2.7.2.686 [id number] [facility] 2021-08-17 18:40:00 2021-08-17 23:01:00 Emergency Kristy Strickland [facility] [id number] [id number] [id number] [id number] [facility] 2021-08-17 18:40:00 2021-08-17 23:01:00 Emergency X OLIVIA VARGAS [facility] ERT [id number] [facility] Results Test Description Test Time Test Comments Results Result Co mments Source [facility] ([id number])2022-01-17 14:12:06* Test Item Value Reference Range Interpretation Comme nts NA (test code = 2186290238) 140 mmol/L 135-145 K (test code = 5437793572) 4.1 mmol/L 3.5-5.0 CL (test code = 2420979677) 104 mmol/L 98-108 CO2 TOTAL (test code = 2601840753) 26 mmol/L 23-31 AGAP (test code = 3617205244) 2-16 BUN (test code = 1998086570) 23 mg/dL 7-23 GLUCOSE (test code = 4601069777) 125 mg/dL 70-110 H CREATININE (test code = 4357205736) 0.57 mg/dL 0.50-1.04 TOTAL BILI (test code = 5749064746) 0.9 mg/dL 0.1-1.1 CALCIUM (test code = 3030083666) 9.9 mg/dL 8.6-10.6 T PROTEIN (test code = 4960182925) 7.4 g/dL 6.3-8.2 ALBUMIN (test code = 3465196972) 4.4 g/dL 3.5-5.0 ALK PHOS (test code = 1807431704) 122 U/L 34-122 ALTv (test code = 1742-6) 68 U/L 5-35 H AST(SGOT) (test code = 6113918960) 44 U/L 13-40 H eGFR (test code = 8623872511) mL/min/1.73m2 JOSÉ (test code = JOSÉ) Association of Glomerular Filtration Rate (GFR) and Staging of Kidney Disease* + --+ --+ ------+| GFR (mL/min/1.73 m2) ?| With Kidney Damage ?| ?Without Kidney Damage+ --------+ --------+ +| ?>90 ?| ?Stage one ?| ? Normal ?+ ---+ ---+ -------+| ?60-89 ?| ?Stage two ?| ? Decreased GFR ? + --+ --+ ------+| ?30-59 ?| ?Stage three ?| ? Stage three ? + --+ --+ ------+| ?15-29 ?| ?Stage four ? | ? Stage four ?+ ---+ ---+ -------+| ?<15 (or dialysis) ? ?| ?Stage five ? | ? Stage five ?+ ---+ ---+ -------+ *Each stage assumes the associated GFR level has been in effect for at least three months. ?Stages 1 to 5, with or without kidney disease, indicate chronic kidney disease. Notes: Determination of stages one and two (with eGFR >59mL/min/1.73 m2) requires estimation of kidney damage for at least three months as defined by structural or functional abnormalities of the kidney, manifested by either:Pathological abnormalities or Markers of kidney damage (including abnormalities in the composition of the blood or urine or abnormalities in imaging tests). Lab Interpretation (test code = 75600-4) [facility] [id number] 13:47:00* Test Item Value Reference Range Interpretation Comme [facility] POCT PREG (test code = 1605) negative On board controls acceptable with C Line (test code = 3574) present POCT PREG LOT # (test code = 3575) [id number] POCT PREG TEST DATE ( test code = 3576) 2023-05-13 Lab Interpretation (test cod e = 29970-7) Normal [facility] / [id number] 00:32:31* Test Item Value Reference Range Interpretation Comme [facility] PROTIME PATIENT (test code = 5964-2) See_Comment [Automated [employer]] The system which generated this result transmitted reference range: 12.0 - 14.7 Seconds. The reference range was not used to interpret this result as normal/abnormal. INR (test code = 6301-6) Normal INR <1.1; Warfarin Therapeutic range 2.0 to 3.0 or 2.5 to 3.5, depending upon the indications. Lab Interpretation (test code = 39432-6) Normal [facility] [id number] 00:27:33* Test Item Value Reference Range Interpretation Comments TROPONIN I (test code = 9661844252) 0.001 ng/mL See_Comment [Automated message] The system which generated this result transmitted reference range: <=0.034. The reference range was not used to interpret this result as normal/abnormal. JOSÉ (test code = JOSÉ) Reference (Normal) Range (defined by the 99th percentile reference limit): <= 0.034 ng/mL Note: Cardiac troponin begins to rise 3-4 hours after the onset of ischemia. Repeat in 4-6 hours if the sample was drawn within 3-4 hours of the onset of the symptom and found normal. Diagnosis of myocardial injury is made with acute changes in cTn concentrations with at least one serial sample above the 99th percentile upper reference limit (URL), taken together with the patient's clinical presentation. Biotin has been reported to cause a negative bias, interpret results relative to patient's use of biotin. Lab Interpretation (test code = 83229-3) Normal [facility] [id number] 00:24:31* Test Item Value Reference Range Interpretation Comme nts NT-proBNP (test code = 0165114915) 230 pg/mL See_Comment H [Automated message] The system which generated this result transmitted reference range: <=125. The reference range was not used to interpret this result as normal/abnormal. JOSÉ (test code = JOSÉ) Biotin has been reported to cause a negative bias, interpret results relative to patient's use of biotin. Lab Interpretation (test code = 22639-0) [facility]normal [facility]OL[facility] PAN[facility] (93130)2021-08-18 00:15:50* Test Item Value Reference Range Interpretation Comme nts NA (test code = 3128527117) 137 mmol/L 135-145 K (test code = 4471365681) 4.1 mmol/L 3.5-5.0 CL (test code = 3293072525) 100 mmol/L 98-108 CO2 TOTAL (test code = 5914395742) 26 mmol/L 23-31 AGAP (test code = 0015154421) 2-16 BUN (test code = 6937946668) 20 mg/dL 7-23 GLUCOSE (test code = 6516784771) 110 mg/dL 70-110 CREATININE (test code = 1631024124) 0.69 mg/dL 0.50-1.04 TOTAL BILI (test code = 6136204074) 0.9 mg/dL 0.1-1.1 CALCIUM (test code = 1184078506) 9.6 mg/dL 8.6-10.6 T PROTEIN (test code = 4303237593) 7.1 g/dL 6.3-8.2 ALBUMIN (test code = 9252479158) 4.0 g/dL 3.5-5.0 ALK PHOS (test code = 9027564276) 141 U/L 34-122 H ALTv (test code = 1742-6) 30 U/L 5-35 AST(SGOT) (test code = 3724414880) 29 U/L 13-40 eGFR (test code = 1700122405) mL/min/1.73m2 JOSÉ (test code = JOSÉ) Association of Glomerular Filtration Rate (GFR) and Staging of Kidney Disease* + --+ --+ ------+| GFR (mL/min/1.73 m2) ?| With Kidney Damage ?| ?Without Kidney Damage+ --------+ --------+ +| ?>90 ?| ?Stage one ?| ? Normal ?+ ---+ ---+ -------+| ?60-89 ?| ?Stage two ?| ? Decreased GFR ? + --+ --+ ------+| ?30-59 ?| ?Stage three ?| ? Stage three ? + --+ --+ ------+| ?15-29 ?| ?Stage four ? | ? Stage four ?+ ---+ ---+ -------+| ?<15 (or dialysis) ? ?| ?Stage five ? | ? Stage five ?+ ---+ ---+ -------+ *Each stage assumes the associated GFR level has been in effect for at least three months. ?Stages 1 to 5, with or without kidney disease, indicate chronic kidney disease. Notes: Determination of stages one and two (with eGFR >59mL/min/1.73 m2) requires estimation of kidney damage for at least three months as defined by structural or functional abnormalities of the kidney, manifested by either:Pathological abnormalities or Markers of kidney damage (including abnormalities in the composition of the blood or urine or abnormalities in imaging tests). Lab Interpretation (test code = 93760-1) Abnormal [facility] WITH [id number] 00:13:49* Test Item Value Reference Range Interpretation Comme nts WBC (test code = 6690-2) See_Comment H [Automated message] The system which generated this result transmitted reference range: 4.30 - 11.10 10*3/?L. The reference range was not used to interpret this result as normal/abnormal. RBC (test code = 789-8) See_Comment [Automated message] The system which generated this result transmitted reference range: 3.93 - 5.25 10*6/?L. The reference range was not used to interpret this result as normal/abnormal. HGB (test code = 718-7) 13.6 g/dL 11.6-15.0 HCT (test code = 4544-3) 41.3 % 35.7-45.2 MCV (test code = 787-2) 89.2 fL 80.6-95.5 MCH (test code = 785-6) 29.4 pg 25.9-32.8 MCHC (test code = 786-4) 32.9 g/dL 31.6-35.1 RDW-SD (test code = 87056-6) 47.5 fL 39.0-49.9 RDW-CV (test code = 788-0) 14.7 % 12.0-15.5 PLT (test code = 777-3) See_Comment H [Automated message] The system which generated this result transmitted reference range: 166 - 358 10*3/?L. The reference range was not used to interpret this result as normal/abnormal. MPV (test code = 20154-0) 9.6 fL 9.5-12.9 NRBC/100 WBC (test code = 3120635965) See_Comment [Automated message] The system which generated this result transmitted reference range: 0.0 - 10.0 /100 WBCs. The reference range was not used to interpret this result as normal/abnormal. NRBC x10^3 (test code = 3849312624) <0.01 See_Comment [Automated message] The system which generated this result transmitted reference range: 10*3/?L. The reference range was not used to interpret this result as normal/abnormal. GRAN MAT (NEUT) % (test code = 770-8) 65.3 % IMM GRAN % (test code = 3576631107) 0.70 % LYMPH % (test code = 736-9) 25.9 % MONO % (test code = 5905-5) 7.2 % EOS % (test code = 713-8) 0.6 % BASO % (test code = 706-2) 0.3 % GRAN MAT x10^3(ANC) (test code = 9593001146) 11.05 10*3/uL 1.88-7.09 H IMM GRAN x10^3 (test code = 2331473603) 0.12 10*3/uL 0.00-0.06 H LYMPH x10^3 (test code = 731-0) 4.37 10*3/uL 1.32-3.29 H MONO x10^3 (test code = 742-7) 1.21 10*3/uL 0.33-0.92 H EOS x10^3 (test code = 711-2) 0.10 10*3/uL 0.03-0.39 BASO x10^3 (test code = 704-7) 0.05 10*3/uL 0.01-0.07 Lab Interpretation (test code = 39743-9) Abnormal [facility]THRITIS [id number] 07:00:32* Test Item Value Reference Range Interpretation Comme nts RHEUMATOID FACTOR, QUANT (test code = 3502) 209 IU/ML <14 H RESULTS RECHECKE D AND VERIFIED URIC ACID (test code = 2233) 4.1 MG/DL 2.7-6.1 SEDIMENTATION RATE (test code = 1017) 24 MM/HOUR 0-20 H ANTI-NUCLEAR ANTIBODIES (test code = 3506) NEGATIVE NEGATIVE Methodology is I ndirect Immunofluorescent Assay (IFA) with a titering system using [id number] cells (Hep2 cells transfected with SS-A/Ro). COMPREHENSIVE METABOLIC [id number] 01:17:07* Test Item Value Reference Range Interpretation Comme nts GLUCOSE (test code = 2216) 108 MG/DL 70-99 H BUN (test code = 2207) 19 MG/DL 6-20 CREATININE (test code = 2213) 0.74 MG/DL 0.60-1.30 eGFR (2020 CKD-EPI) (test code = 71597) 96 ML/MIN/1.73 >60 CALC BUN/CREAT (test code = 2235) 26 RATIO 6-28 SODIUM (test code = 2230) 142 MEQ/L 133-146 POTASSIUM (test code = 2227) 3.7 MEQ/L 3.5-5.4 CHLORIDE (test code = 5) 102 MEQ/L 95-107 CARBON DIOXIDE (test code = 2205) 22 MEQ/L 19-31 CALCIUM (test code = 2208) 10.1 MG/DL 8.5-10.5 PROTEIN, TOTAL (test code = 2228) 7.5 G/DL 6.1-8.3 ALBUMIN (test code = 2200) 4.4 G/DL 3.5-5.2 CALC GLOBULIN (test code = 2240) 3.1 G/DL 1.9-3.7 CALC A/G RATIO (test code = 2234) 1.4 RATIO 1.0-2.6 BILIRUBIN, TOTAL (test code = 2206) 0.2 MG/DL See_Comment [Automated me ssage] The system which generated this result transmitted reference range: <=1.2. The reference range was not used to interpret this result as normal/abnormal. ALKALINE PHOSPHATASE (test code = 2203) 125 U/L 40-133 AST (test code = 8) 23 U/L 9-40 ALT (test code = 2219) 27 U/L 5-40 C-REACTIVE [id number] 01:17:00* Test Item Value Reference Range Interpretation Comme nts C-REACTIVE PROTEIN (test code = 3513) 0.7 MG/DL <0.5 H UNLESS OTHERW ISE INDICATED, ALL TESTING PERFORMED ATCLINICAL PATHOLOGY [employer] [address] [place] [id number] ENVIRONMENTAL FIELD TECHNICIAN: LOCO VARMA M.D. CLIA NUMBER [id number] [facility] [place] [place]. [id number] ARTHRITIS [id number] 00:00:00* Test Item Value Reference Range Interpretation Comme nts RHEUMATOID FACTOR, QUANT (te st code = 3502) 209 IU/ML URIC ACID (test code = 2233) 4.1 MG/DL SEDIMENTATION RATE (test cod e = 1017) 24 MM/HOUR ANTI-NUCLEAR ANTIBODIES (kulwant t code = 3506) NEGATIVE COMPREHENSIVE METABOLIC [id number] 00:00:00* Test Item Value Reference Range Interpretation Comme nts GLUCOSE (test code = 2217) 108 MG/DL BUN (test code = 2208) 19 MG/DL CREATININE (test code = 2214) 0.74 MG/DL eGFR (2020 CKD-EPI) (test co de = 80544) 96 ML/MIN/1.73 CALC BUN/CREAT (test code = 2235) 26 RATIO SODIUM (test code = 2231) 142 MEQ/L POTASSIUM (test code = 2228) 3.7 MEQ/L CHLORIDE (test code = 2215) 102 MEQ/L CARBON DIOXIDE (test code = 2206) 22 MEQ/L CALCIUM (test code = 2209) 10.1 MG/DL PROTEIN, TOTAL (test code = 2229) 7.5 G/DL ALBUMIN (test code = 2201) 4.4 G/DL CALC GLOBULIN (test code = 2240) 3.1 G/DL CALC A/G RATIO (test code = 2234) 1.4 RATIO BILIRUBIN, TOTAL (test code = 2207) 0.2 MG/DL ALKALINE PHOSPHATASE (test code = 2204) 125 U/L AST (test code = 2218) 23 U/L ALT (test code = 2219) 27 U/L C-REACTIVE [id number] 00:00:00* Test Item Value Reference Range Interpretation Comme nts C-REACTIVE PROTEIN (test cod e = 3513) 0.7 MG/DL ARTHRITIS [id number] 00:00:00* Test Item Value Reference Range Interpretation Comme nts RHEUMATOID FACTOR, QUANT (te st code = 3502) 209 IU/ML URIC ACID (test code = 2233) 4.1 MG/DL SEDIMENTATION RATE (test cod e = 1017) 24 MM/HOUR ANTI-NUCLEAR ANTIBODIES (kulwant t code = 3506) NEGATIVE COMPREHENSIVE METABOLIC [id number] 00:00:00* Test Item Value Reference Range Interpretation Comme nts GLUCOSE (test code = 2217) 108 MG/DL BUN (test code = 2208) 19 MG/DL CREATININE (test code = 2214) 0.74 MG/DL eGFR (2020 CKD-EPI) (test co de = 41422) 96 ML/MIN/1.73 CALC BUN/CREAT (test code = 2235) 26 RATIO SODIUM (test code = 2231) 142 MEQ/L POTASSIUM (test code = 2228) 3.7 MEQ/L CHLORIDE (test code = 2215) 102 MEQ/L CARBON DIOXIDE (test code = 2206) 22 MEQ/L CALCIUM (test code = 2209) 10.1 MG/DL PROTEIN, TOTAL (test code = 2229) 7.5 G/DL ALBUMIN (test code = 2201) 4.4 G/DL CALC GLOBULIN (test code = 2240) 3.1 G/DL CALC A/G RATIO (test code = 2234) 1.4 RATIO BILIRUBIN, TOTAL (test code = 2207) 0.2 MG/DL ALKALINE PHOSPHATASE (test code = 2204) 125 U/L AST (test code = 2218) 23 U/L ALT (test code = 2219) 27 U/L C-REACTIVE [id number] 00:00:00* Test Item Value Reference Range Interpretation Comme nts C-REACTIVE PROTEIN (test cod e = 3513) 0.7 MG/DL CBC W/AUTO DIFF WITH [id number] 04:03:17* Test Item Value Reference Range Interpretation Comme nts WBC (test code = 1001) 9.4 K/UL 3.5-11.0 RBC (test code = 1002) 4.48 M/UL 3.80-5.40 HEMOGLOBIN (test code = 1003) 13.5 G/DL 11.5-15.5 HEMATOCRIT (test code = 1004) 40.2 % 34.0-45.0 MCV (test code = 1005) 89.7 fL 80.0-99.0 MCH (test code = 1006) 30.1 PG 25.0-33.0 MCHC (test code = 1007) 33.6 G/DL 31.0-36.0 RDW (test code = 1038) 14.5 % 11.5-15.0 NEUTROPHILS (test code = 1008) 60.3 % LYMPHOCYTES (test code = 1010) 29.9 % MONOCYTES (test code = 1011) 8.1 % EOSINOPHILS (test code = 1012) 1.1 % BASOPHILS (test code = 1013) 0.3 % NUCLEATED RBCS (test code = 1065) 0.0 /100 WBC'S See_Comment [Automated messa ge] The system which generated this result transmitted reference range: 0.0. The reference range was not used to interpret this result as normal/abnormal. PLATELET COUNT (test code = 1015) 350 K/UL 130-400 ABSOLUTE NEUTROPHILS (test code = 1066) 5.68 K/UL 1.50-7.50 ABSOLUTE LYMPHOCYTES (test code = 1067) 2.82 K/UL 1.00-4.00 ABSOLUTE MONOCYTES (test code = 1068) 0.76 K/UL 0.20-1.00 ABSOLUTE EOSINOPHILS (test code = 1040) 0.10 K/UL 0.00-0.50 ABSOLUTE BASOPHILS (test code = 1069) 0.03 K/UL 0.00-0.20 ABS NUCLEATED RBCS (test code = 01214) 0.00 K/UL 0.00-0.11 CBC W/AUTO [id number] 00:00:00* Test Item Value Reference Range Interpretation Comme nts WBC (test code = 1001) 9.4 K/UL RBC (test code = 1002) 4.48 M/UL HEMOGLOBIN (test code = 1003) 13.5 G/DL HEMATOCRIT (test code = 1004) 40.2 % MCV (test code = 1005) 89.7 fL MCH (test code = 1006) 30.1 PG MCHC (test code = 1007) 33.6 G/DL RDW (test code = 1038) 14.5 % NEUTROPHILS (test code = 1008) 60.3 % LYMPHOCYTES (test code = 1010) 29.9 % MONOCYTES (test code = 1011) 8.1 % EOSINOPHILS (test code = 1012) 1.1 % BASOPHILS (test code = 1013) 0.3 % NUCLEATED RBCS (test code = 1065) 0.0 /100WBC'S PLATELET COUNT (test code = 1015) 350 K/UL ABSOLUTE NEUTROPHILS (test c ode = 1066) 5.68 K/UL ABSOLUTE LYMPHOCYTES (test c ode = 1067) 2.82 K/UL ABSOLUTE MONOCYTES (test cod e = 1068) 0.76 K/UL ABSOLUTE EOSINOPHILS (test c ode = 1040) 0.10 K/UL ABSOLUTE BASOPHILS (test cod e = 1069) 0.03 K/UL ABS NUCLEATED RBCS (test cod e = 61952) 0.00 K/UL CBC W/AUTO [id number] 00:00:00* Test Item Value Reference Range Interpretation Comme nts WBC (test code = 1001) 9.4 K/UL RBC (test code = 1002) 4.48 M/UL HEMOGLOBIN (test code = 1003) 13.5 G/DL HEMATOCRIT (test code = 1004) 40.2 % MCV (test code = 1005) 89.7 fL MCH (test code = 1006) 30.1 PG MCHC (test code = 1007) 33.6 G/DL RDW (test code = 1038) 14.5 % NEUTROPHILS (test code = 1008) 60.3 % LYMPHOCYTES (test code = 1010) 29.9 % MONOCYTES (test code = 1011) 8.1 % EOSINOPHILS (test code = 1012) 1.1 % BASOPHILS (test code = 1013) 0.3 % NUCLEATED RBCS (test code = 1065) 0.0 /100WBC'S PLATELET COUNT (test code = 1015) 350 K/UL ABSOLUTE NEUTROPHILS (test c ode = 1066) 5.68 K/UL ABSOLUTE LYMPHOCYTES (test c ode = 1067) 2.82 K/UL ABSOLUTE MONOCYTES (test cod e = 1068) 0.76 K/UL ABSOLUTE EOSINOPHILS (test c ode = 1040) 0.10 K/UL ABSOLUTE BASOPHILS (test cod e = 1069) 0.03 K/UL ABS NUCLEATED RBCS (test cod e = 79266) 0.00 K/UL SARS-CoV-2 (COVID-19), RT-[id number] 14:21:22* Test Item Value Reference Range Interpretation Comments SARS-CoV-2 INTERPRETATION (test code = 70778) POSITIVE SEE NOTE A SARS-CoV-2 R NA DETECTEDPositive results are indicative of the presence of SARS-CoV-2 RNA;clinical correlation with patient history and other diagnosticinformation is necessary to determine patient infection status.Positive results do not rule out bacterial infection or co-infectionwith other viruses. Positive and negative predictive values oftesting are highly dependent on prevalence. SOURCE (test code = 76316) NOT SPECIFIED Note: Methodolog y is Ian Summer Real-Time RT-PCR. The expected result or reference range is NEGATIVE (Not Detected). For more information regarding COVID-19 testing to include clinicalinformation, methodology detail, intended use, FDA authorization andrecommended fact sheets for patients or healthcare providers, see [employer] Announcement: SARS-CoV-2 (COVID-19) by NAAT at URL below (note,fact sheets are provided by method given in report:[email or web address] Alternatively, see downloadable PDF fact sheet at:[email or web address] UNLESS OTHERWISE INDICATED, ALL TESTING PERFORMED [facility] [employer] [address] [place] [address] ENVIRONMENTAL FIELD TECHNICIAN: LOCO VARMA M.D. CLIA NUMBER [id number] [facility] [place] [id number] SARS-CoV-2 (COVID-19) by RT-PCR (HIGH RISK)2021-03-04 00:00:00* Test Item Value Reference Range Interpretation Comme nts SARS-CoV-2 INTERPRETATION (t est code = 98763) POSITIVE SOURCE (test code = 31961) NOT SPECIFIED SARS-CoV-2 (COVID-19) by RT-PCR (HIGH RISK)2021-03-04 00:00:00* Test Item Value Reference Range Interpretation Comme nts SARS-CoV-2 INTERPRETATION (t est code = 70235) POSITIVE SOURCE (test code = 74281) NOT SPECIFIED SCR MAMM BILATERAL CHITO CAD [id number] 08:11:19 Name: , Emelina Maurice : 1965 Sex: F - SCR MAMM BILATERAL CHITO CAD DIGITALBILATERAL DIGITAL SCREENING MAMMOGRAM 3D/2D WITH CAD: 06/11/2020LINICAL: Asymptomatic. Digital breast tomosynthesis was performed in addition to routine CC and MLO views. Current mammographic images were evaluated by [employer] CAD (computer-aided detection) software. Comparison is made to exam dated 10/01/2007 mammogram - [facility]. There are scattered fibroglandular tissues in both breasts. There are benign calcifications in both breasts. No suspicious mass, architectural distortion, malignant type calcification, or lymph node abnormality detected. IMPRESSION: BENIGNThere is no mammographic evidence of malignancy. Resume annual screening mammography in one year. Gary Cam M.D. et/penrad:06/24/2020 08:11:19 Bullet Maker: Leonor Hubbard MM, [facility] Mammographyletter sent: BIRADS 1-2 Normal Mammogram BI-RADS: 2 BenignVAGINAL PATHOGENS DNA [id number] 00:00:00* Test Item Value Reference Range Interpretation Comme nts FLETCHER SPECIES (test code = 23617) NEGATIVE G. VAGINALIS (test code = 21415) POSITIVE T. VAGINALIS (test code = 14882) NEGATIVE VAGINAL PATHOGENS DNA [id number] 00:00:00* Test Item Value Reference Range Interpretation Comme nts FLETCHER SPECIES (test code = 51559) NEGATIVE G. VAGINALIS (test code = 37203) POSITIVE T. VAGINALIS (test code = 75066) NEGATIVE GC AND CHLAMYDIA AMPLIFIED, [id number] 00:00:00* Test Item Value Reference Range Interpretation Comme nts GONORRHEA, TMA (test code = 99261) NEGATIVE CHLAMYDIA, TMA (test code = 56809) NEGATIVE HIV AB/AG COMBO RFLX [id number] 00:00:00* Test Item Value Reference Range Interpretation Comme nts HIV 1/2 4TH GEN, RFLX CONF ( test code = 3514) NON-REACTIVE RPR REFLEX TO [id number] 00:00:00* Test Item Value Reference Range Interpretation Comme nts RPR (test code = 05091) NON-REACTIVE RPR TITER (test code = 3500) NOT INDIC. TITER PAP TEST, THINPREP, [id number] 00:00:00* Test Item Value Reference Range Interpretation Comme nts SOURCE: (test code = 8001) Cervical/Endocervical SLIDES: (test code = 8011) 1 LMP: (test code = 8021) SEE NOTE SPECIMEN ADEQUACY: (test code = 00092) (NOTE) INTERPRETATION: (test code = 38003) NILM/NO EPITH. ABNORMALITY;SEE BELOW OTHER COMMENTS: (test code = 8081) (NOTE) OCEANOLOGY TEACHER: (test code = 8101) ANSHUL JHAVERI(ASCP)IAC LOCATION: (test code = 93561) (NOTE) CPT: (test code = 8140) (NOTE) HPV HIGH RISK WITH GENOTYPE, [id number] 00:00:00* Test Item Value Reference Range Interpretation Comme [facility] HPV HIGH RISK INTERP (test c ode = 21679) NEGATIVE HPV 16 (test code = 40938) NEGATIVE HPV 18 (test code = 03858) NEGATIVE HPV, HR, OTHER GENOTYPES (te st code = 08917) NEGATIVE HIV AB/AG COMBO RFLX [id number] 00:00:00* Test Item Value Reference Range Interpretation Comme nts HIV 1/2 4TH GEN, RFLX CONF ( test code = 3514) NON-REACTIVE GC AND CHLAMYDIA AMPLIFIED, [id number] 00:00:00* Test Item Value Reference Range Interpretation Comme nts GONORRHEA, TMA (test code = 66331) NEGATIVE CHLAMYDIA, TMA (test code = 98507) NEGATIVE RPR REFLEX TO [id number] 00:00:00* Test Item Value Reference Range Interpretation Comme nts RPR (test code = 01090) NON-REACTIVE RPR TITER (test code = 3500) NOT INDIC. TITER PAP TEST, THINPREP, [id number] 00:00:00* Test Item Value Reference Range Interpretation Comme [facility] SOURCE: (test code = 8001) Cervical/Endocervical SLIDES: (test code = 8011) 1 LMP: (test code = 8021) SEE NOTE SPECIMEN ADEQUACY: (test code = 02159) (NOTE) INTERPRETATION: (test code = 44157) NILM/NO EPITH. ABNORMALITY;SEE BELOW OTHER COMMENTS: (test code = 8081) (NOTE) OCEANOLOGY TEACHER: (test code = 8101) ANSHUL JHAVERI(ASCP)IAC LOCATION: (test code = 16325) (NOTE) CPT: (test code = 8140) (NOTE) HPV HIGH RISK WITH GENOTYPE, [id number] 00:00:00* Test Item Value Reference Range Interpretation Comme nts HPV HIGH RISK INTERP (test c ode = 01122) NEGATIVE HPV 16 (test code = 42186) NEGATIVE HPV 18 (test code = 16762) NEGATIVE HPV, HR, OTHER GENOTYPES (te st code = 58456) NEGATIVE SARS-CoV-2 (COVID-19) by RT-PCR (HIGH RISK)2020-01-16 00:00:00* Test Item Value Reference Range Interpretation Comme nts SARS-CoV-2 INTERPRETATION (t est code = 72921) NEGATIVE SOURCE (test code = 10203) NOT SPECIFIED SARS-CoV-2 (COVID-19) by RT-PCR (HIGH RISK)2020-01-16 00:00:00* Test Item Value Reference Range Interpretation Comme nts SARS-CoV-2 INTERPRETATION (t est code = 47520) NEGATIVE SOURCE (test code = 24583) NOT SPECIFIED SARS-CoV-2 (COVID-19) by RT-PCR (HIGH RISK)2019-12-22 00:00:00* Test Item Value Reference Range Interpretation Comme nts SARS-CoV-2 INTERPRETATION (test code = 80127) Negative SOURCE (test code = 85055) NASOPHARYNGEA L_SWAB _IN_VTM__UTM SARS-CoV-2 (COVID-19) by RT-PCR (HIGH RISK)2019-12-22 00:00:00* Test Item Value Reference Range Interpretation Comme nts SARS-CoV-2 INTERPRETATION (test code = 52664) Negative SOURCE (test code = 57327) NASOPHARYNGEA L_SWAB _IN_VTM__UTM [id number] 00:00:00* Test Item Value Reference Range Interpretation Comme nts TSH, THIRD GENERATION (test code = 2821) 0.584 UIU/ML CBC W/AUTO [id number] 00:00:00* Test Item Value Reference Range Interpretation Comme nts WBC (test code = 1001) 7.6 K/UL RBC (test code = 1002) 4.76 M/UL HEMOGLOBIN (test code = 1003) 14.8 G/DL HEMATOCRIT (test code = 1004) 41.8 % MCV (test code = 1005) 87.8 fL MCH (test code = 1006) 31.1 PG MCHC (test code = 1007) 35.4 G/DL RDW (test code = 1038) 13.6 % NEUTROPHILS (test code = 1008) 54.0 % LYMPHOCYTES (test code = 1010) 38.0 % MONOCYTES (test code = 1011) 6.3 % EOSINOPHILS (test code = 1012) 1.2 % BASOPHILS (test code = 1013) 0.5 % PLATELET COUNT (test code = 1015) 328 K/UL HEMOGLOBIN [id number] 00:00:00* Test Item Value Reference Range Interpretation Comme nts HEMOGLOBIN A1c (test code = 83409) 6.0 % LIPID [id number] 00:00:00* Test Item Value Reference Range Interpretation Comme nts CHOLESTEROL (test code = 2210) 202 MG/DL TRIGLYCERIDES (test code = 2232) 118 MG/DL HDL CHOLESTEROL (test code = 2220) 61 MG/DL CALC LDL CHOL (test code = 2237) 118 MG/DL RISK RATIO LDL/HDL (test cod e = 2238) 1.93 RATIO COMPREHENSIVE METABOLIC [id number] 00:00:00* Test Item Value Reference Range Interpretation Comme nts GLUCOSE (test code = 2217) 80 MG/DL BUN (test code = 2208) 22 MG/DL CREATININE (test code = 2214) 0.70 MG/DL eGFR AMER. (test cod e = 56540) 115 ML/MIN/1.73 eGFR NON- AMER. (test code = 47393) 99 ML/MIN/1.73 CALC BUN/CREAT (test code = 2235) 31 RATIO SODIUM (test code = 2231) 143 MEQ/L POTASSIUM (test code = 2228) 4.4 MEQ/L CHLORIDE (test code = 2215) 103 MEQ/L CARBON DIOXIDE (test code = 2206) 26 MEQ/L CALCIUM (test code = 2209) 10.7 MG/DL PROTEIN, TOTAL (test code = 2229) 7.9 G/DL ALBUMIN (test code = 2201) 4.9 G/DL CALC GLOBULIN (test code = 2240) 3.0 G/DL CALC A/G RATIO (test code = 2234) 1.6 RATIO BILIRUBIN, TOTAL (test code = 2207) 0.6 MG/DL ALKALINE PHOSPHATASE (test code = 2204) 141 U/L AST (test code = 2218) 37 U/L ALT (test code = 2219) 52 U/L [id number] 00:00:00* Test Item Value Reference Range Interpretation Comme nts TSH, THIRD GENERATION (test code = 2821) 0.584 UIU/ML CBC W/AUTO [id number] 00:00:00* Test Item Value Reference Range Interpretation Comme nts WBC (test code = 1001) 7.6 K/UL RBC (test code = 1002) 4.76 M/UL HEMOGLOBIN (test code = 1003) 14.8 G/DL HEMATOCRIT (test code = 1004) 41.8 % MCV (test code = 1005) 87.8 fL MCH (test code = 1006) 31.1 PG MCHC (test code = 1007) 35.4 G/DL RDW (test code = 1038) 13.6 % NEUTROPHILS (test code = 1008) 54.0 % LYMPHOCYTES (test code = 1010) 38.0 % MONOCYTES (test code = 1011) 6.3 % EOSINOPHILS (test code = 1012) 1.2 % BASOPHILS (test code = 1013) 0.5 % PLATELET COUNT (test code = 1015) 328 K/UL HEMOGLOBIN [id number] 00:00:00* Test Item Value Reference Range Interpretation Comme nts HEMOGLOBIN A1c (test code = 34903) 6.0 % LIPID [id number] 00:00:00* Test Item Value Reference Range Interpretation Comme nts CHOLESTEROL (test code = 2210) 202 MG/DL TRIGLYCERIDES (test code = 2232) 118 MG/DL HDL CHOLESTEROL (test code = 2220) 61 MG/DL CALC LDL CHOL (test code = 2237) 118 MG/DL RISK RATIO LDL/HDL (test cod e = 2238) 1.93 RATIO COMPREHENSIVE METABOLIC [id number] 00:00:00* Test Item Value Reference Range Interpretation Comme nts GLUCOSE (test code = 2217) 80 MG/DL BUN (test code = 2208) 22 MG/DL CREATININE (test code = 2214) 0.70 MG/DL eGFR AMER. (test cod e = 45194) 115 ML/MIN/1.73 eGFR NON- AMER. (test code = 84360) 99 ML/MIN/1.73 CALC BUN/CREAT (test code = 2235) 31 RATIO SODIUM (test code = 2231) 143 MEQ/L POTASSIUM (test code = 2228) 4.4 MEQ/L CHLORIDE (test code = 2215) 103 MEQ/L CARBON DIOXIDE (test code = 2206) 26 MEQ/L CALCIUM (test code = 2209) 10.7 MG/DL PROTEIN, TOTAL (test code = 2229) 7.9 G/DL ALBUMIN (test code = 2201) 4.9 G/DL CALC GLOBULIN (test code = 2240) 3.0 G/DL CALC A/G RATIO (test code = 2234) 1.6 RATIO BILIRUBIN, TOTAL (test code = 2207) 0.6 MG/DL ALKALINE PHOSPHATASE (test code = 2204) 141 U/L AST (test code = 2218) 37 U/L ALT (test code = 2219) 52 U/L Notes Date/Time Note Provider Source 2023-10-12 10:12:33 Chief Complaint Patient presents with Follow-up Test 6 week follow up. Pt states that condition has improved since [facility] 08/31/2023. Pt reports Pain level 4/10. Ilya Choudhary MA II Ilya Choudhary MA, II [facility] 2023-08-31 14:52:49 Chief Complaint Patient presents with Follow-Up Visit Pt c/o body swelling and pain in legs x 6 weeks. [facility] 2023-07-13 14:35:04 Chief Complaint Patient presents with Follow-up 2 month f/u, rheumatoid arthritis. Pt reports condition has not improved, reports that swelling has increased. [facility] 05/11/2023 Pt would like to consult if the medications are what is causing her extra swelling. Dang Ospina CMA I [facility] 2023-05-30 19:42:55 Pt given printed and verbal discharge instructions regarding allergic reaction Prescriptions provided: Prednisone Pt verbalized understanding of instructions, pt awake alert oriented, resp reg unlabored, skin w/d, color appropriate for race, moves all ext well,pt encouraged to follow up with pcp Advised to seek medical attention for new/prolonged/worsening of symptoms No adverse reaction to meds given in ER noted upon discharge PIV d'cd, dressing to site, catheter in tact. Awake, alert oriented, resp reg unlabored, skin w/d, pt leaving amb with steady gait, in no apparent distress Larisa Melendez RN [facility] 2023-05-30 18:51:16 Handoff report given to Aubrie Melendez RN Jennifer Caro RN [facility] 2023-05-30 17:47:27 Pt arrived via private car with c/o hives and itching, states she took benadryl this morning. States she started a new arthritis medicine yesterday. States she has had hives like this before and never figured out what she was allergic to. Angeli Sifuentes RN [facility] 2023-05-21 15:41:16 Chief Complaint Patient presents with Cough Cough for 2 weeks. Coughing up thick green mucus. Right ear has a lot of pressure Julieta Dodson LVN [facility] 2023-05-11 10:54:29 Chief Complaint Patient presents with Follow-up 1 month f/u, Rheumatoid Arthritis. Pt reports she has not been feeling better since [facility] 04/06/2023. Pt states the medications Rx are not helping much. Pt wants to consult over her medications from outside rheumatology facility. Dang Ospina CMA I [facility] 2023-04-06 10:24:14 Chief Complaint Patient presents with Rheumatoid Arthritis Pt has pain all over her body. Pt has had condition for 7-10 years. Pt has taken Humira, Methotrexate 25Mg, Prednisone 5Mg for the pain. Dang Ospina CMA I [facility]"
[2023-11-27] MEDS ORDERED: ASPIRIN EC 325 MG TABLET PO ONE (08:48)
[2023-11-27] MEDS ORDERED: NITROGLYCERIN 0.4 MG/TAB SL ONE ×2 (08:48→15:21)
[2023-11-27 09:08] LABS: Absolute Basophils 0.1 K/uL (0-0.5); Absolute Eosinophils 0.1 K/uL (0-0.5); Absolute Lymphocytes (CBC) 4.1 K/uL (0.7-4.9); Absolute Monocytes 0.5 K/uL (0.1-1.3); Absolute Neutrophil 4.5 K/uL (1.8-8.0); Basophils % 0.9 % (0-1.3); Eosinophils % 1.1 % (0-4.4); Hematocrit 42.3 % (36.0-45.0); Hemoglobin 13.9 g/dL (12.0-15.0); Lymphocytes % 44.2 % (15.3-44.8); MCH 29.1 pg (27.0-35.0); MCHC 32.8 g/dL (32.0-36.0); MCV 88.5 fL (80-100); MPV 8.4 fL (7.6-11.3); Monocytes % 5.7 % (3.3-12.3); Neutrophils % 48.1 % (41.7-73.7); Nucleated Red Blood Cells % 0.1 % (0-0); Platelets 255 thou/uL (152-406); RBC Red Blood Cell Count 4.78 M/uL (3.86-4.86); Red Cell Distribution Width 13.5 % (12.1-15.2)
[2023-11-27 09:27] LABS: ALT/SGPT 39 U/L (13-56); AST/SGOT 19 U/L (15-37); Albumin 3.4 g/dL (3.4-5.0); Albumin/Globulin Ratio 0.9 (1.1-1.8); Alkaline Phosphatase 147 U/L (45-117); Anion Gap 10.2 mEq/L (5.0-15.0); BUN Blood Urea Nitrogen 17 mg/dL (7-18); Bicarbonate 27 mEq/L (21-32); Bilirubin Total 0.5 mg/dL (0.2-1.0); Globulin 3.9 g/dL (2.3-3.5); Glomerular Filtration Rate 75 ml/min (=/>90); Glucose Level 337 mg/dL (74-106); Potassium 3.2 mEq/L (3.5-5.1); Protein, Total 7.3 g/dL (6.4-8.2); Sodium Level 135 mEq/L (136-145); Troponin High Sensitivity 4.3 pg/mL (<58.9)
[2023-11-27 09:28] LABS: Bilirubin Direct < 0.2 mg/dL (0-0.2); Bilirubin Indirect, Calculated 0.3 mg/dL (0.2-0.8)
--- NOTE | 2023-11-27 09:53 | RAD REPORT ---
Procedure: Chest Single View HISTORY: Chest pain COMPARISON: 2011 FINDINGS: Pulmonary vascular congestion is present. Lungs appear clear of acute infiltrate. No significant pleural effusion noted. The heart is mildly enlarged. IMPRESSION: No acute abnormality is displayed.
[2023-11-27] MEDS ORDERED: ACETAMINOPHEN 500 MG TAB ONE (10:52)
[2023-11-27] MEDS ORDERED: ONDANSETRON 4 MG/2 ML VIAL IV PRN (11:00)
[2023-11-27] MEDS: NA CHLORIDE 0.9% 1,000 ML IV SCH (11:00)
--- NOTE | 2023-11-27 11:01 | EDPHYS ---
Physician Documentation [facility] Name: Pearl Bolden Age: 58 yrs Sex: Female : 1965 Arrival Date: 11/27/2023 Time: 08:22 Bed 13 Private MD: ED Physician Brandon Wilson HPI: 11/26 09:18 This 58 yrs old Female presents to ER via Ambulatory with complaints of rt Numbness Of Arm, Chest Pressure, Nausea. 09:18 Patient presents to the ED with a chest pain described as a pressure as well as a rt tingling sensation in her left arm with nausea. This started at about 4 AM when the patient woke up. States that she felt well when she went to bed. Denies aggravating or alleviating factors. She has never had a similar symptom previously. Symptoms are moderate in severity, no other aggravating or alleviating factors.. Historical: - Allergies: 08:29 No Known Allergies; iw - PMHx: 08:29 Arthritis; iw - PSHx: 08:29 Cholecystectomy; iw - Immunization history:: Adult Immunizations up to date. - Infectious Disease History:: Denies. - Social history:: Smoking status: Patient denies any tobacco usage or history of. ROS: 09:18 Constitutional: Negative for fever, chills, and weight loss, Respiratory: Negative for rt shortness of breath, cough, wheezing, and pleuritic chest pain, MS/Extremity: Negative for injury and deformity, Skin: Negative for injury, rash, and discoloration, Neuro: Negative for headache, weakness, numbness, tingling, and seizure, 09:18 Cardiovascular: Positive for chest pain, Negative for edema, 09:18 Abdomen/GI: Positive for nausea, Negative for abdominal pain, Exam: 09:18 Constitutional: This is a well developed, well nourished patient who is awake, alert, rt and in no acute distress. Head/Face: Normocephalic, atraumatic. Chest/axilla: Normal chest wall appearance and motion. Nontender with no deformity. No lesions are appreciated. Cardiovascular: Regular rate and rhythm with a normal S1 and S2. No gallops, murmurs, or rubs. Normal PMI, no JVD. No pulse deficits. Respiratory: Lungs have equal breath sounds bilaterally, clear to auscultation and percussion. No rales, rhonchi or wheezes noted. No increased work of breathing, no retractions or nasal flaring. Abdomen/GI: Soft, non-tender, with normal bowel sounds. No distension or tympany. No guarding or rebound. No evidence of tenderness throughout. Skin: Warm, dry with normal turgor. Normal color with no rashes, no lesions, and no evidence of cellulitis. MS/ Extremity: Pulses equal, no cyanosis. Neurovascular intact. Full, normal range of motion. Neuro: Awake and alert, GCS 15, oriented to person, place, time, and situation. Cranial nerves II-XII grossly intact. Motor strength 5/5 in all extremities. Sensory grossly intact. Cerebellar exam normal. Normal gait. 09:18 ECG was reviewed by the Attending Physician. Vital Signs: 08:29 BP 125 / 87; Pulse 86; Resp 16; Temp 97; Pulse Ox 97% ; Weight 90.72 kg; Height 5 ft. 3 iw in. ; Pain 0/10; 08:35 BP 111 / 83; Pulse 70; Resp 17; Pulse Ox 99% on R/A; rs5 09:00 BP 107 / 79; Pulse 74; Resp 17; Pulse Ox 99% on R/A; rs5 09:57 BP 115 / 82; Pulse 79; Resp 17; Pulse Ox 99% on R/A; rs5 11:31 BP 110 / 74; Pulse 70; Resp 16; Pulse Ox 99% ; rs5 08:29 Body Mass Index 35.43 (90.72 kg, 160.02 cm) iw 08:29 Pain Scale: Adult iw MDM: 08:43 Medical Screening Exam initiated rt 13:51 Differential diagnosis: CAD, chest pain, ACS, pneumonia. Data reviewed: vital signs, rt nurses notes, lab test result(s), EKG, radiologic studies. Consideration of Admission/Observation Patient was admitted/placed on observation. Management of patient was discussed with the following: Hospitalist: Agrees to admit. I considered the following discharge prescriptions or medication management in the emergency department Medications were administered in the Emergency Department. See MAR. Independent interpretation of the following test(s) in the Emergency Department X-Ray: My interpretation is No consolidation send mitral rotation of x-ray images. Scoring Tools HEART Score: History: Highly Suspicious (2) ECG: Normal (0) Age: > 45 and < 65 years (1) Risk Factors: 1 or 2 Risk factors (1) Troponin: < or = 1 x Normal limit (0) Total Score = 4. Counseling: I had a detailed discussion with the patient and/or guardian regarding the historical points, exam findings, and any diagnostic results supporting the discharge/admit diagnosis, lab results, radiology results, the need for further work-up and treatment in the hospital. Response to treatment: the patient's symptoms have resolved after treatment, the patient's pain is gone. 11/26 08:51 Order name: Basic Metabolic Panel; Complete Time: 10:16 rt 11/26 08:51 Order name: CBC with Diff; Complete Time: 10:16 rt 11/26 08:51 Order name: LFT's; Complete Time: 10:16 rt 11/26 08:51 Order name: Troponin HS; Complete Time: 10:16 rt 11/26 11:10 Order name: T4 Free EDMS 11/26 11:10 Order name: Thyroid Stimulating Hormone EDMS 11/26 11:10 Order name: Basic Metabolic Panel EDMS 11/26 11:10 Order name: Basic Metabolic Panel EDMS 11/26 11:10 Order name: CBC with Automated Diff EDMS 11/26 11:10 Order name: CBC with Automated Diff EDMS 11/26 11:10 Order name: Lipid Profile EDMS 11/26 11:10 Order name: Lipid Profile EDMS 11/26 11:10 Order name: Magnesium EDMS 11/26 11:10 Order name: Magnesium EDMS 11/26 11:10 Order name: Phosphorus EDMS 11/26 11:10 Order name: Phosphorus EDMS 11/26 11:10 Order name: Troponin High Sensitivity EDMS 11/26 11:10 Order name: Troponin High Sensitivity EDMS 11/26 11:10 Order name: Troponin High Sensitivity EDMS 11/26 08:51 Order name: XRAY Chest (1 view); Complete Time: 10:16 rt 11/26 08:51 Order name: EKG; Complete Time: 08:52 rt 11/26 08:51 Order name: Cardiac monitoring; Complete Time: 09:54 rt 11/26 08:51 Order name: EKG - Nurse/Tech; Complete Time: 09:54 rt 11/26 08:51 Order name: IV Saline Lock; Complete Time: 09:54 rt 11/26 08:51 Order name: Labs collected and sent; Complete Time: 09:54 rt 11/26 08:51 Order name: O2 Per Protocol; Complete Time: :54 rt 11/26 08:51 Order name: O2 Sat Monitoring; Complete Time: 09:54 rt EC:18 Rate is 79 beats/min. Rhythm is regular, Normal Sinus Rhythm with No ectopy. QRS [place] rt is Normal. [place] interval is normal. QRS interval is normal. QT interval is normal. No Q waves. T waves are Normal. No ST changes noted. Interpreted by me. Administered Medications: 08:35 Drug: Nitroglycerin Sublingual 0.4 mg Sublingual once; every five minute if needed x3 rs5 Route: Sublingual; 08:40 Drug: Aspirin PO 325 mg PO once Route: PO; rs5 09:20 Follow up: Response: No adverse reaction rs5 08:40 Drug: Nitroglycerin Sublingual 0.4 mg Sublingual once; every five minute if needed x3 rs5 Route: Sublingual; 09:00 Follow up: Response: No adverse reaction; Pain is decreased rs5 10:55 Drug: Acetaminophen PO 1000 mg PO once Route: PO; rs5 12:10 Follow up: Response: No adverse reaction; Pain is decreased rs5 Disposition Summary: 11/27/23 11:00 Hospitalization Ordered Notes: Hospitalization Status: Observation rt Provider: Andrzej Jacques rt Condition: Stable rt Problem: new rt Symptoms: have improved rt Bed/Room Type: Standard rt Location: Telemetry/MedSurg (observation)(11/27/23 16:17) bd Room Assignment: [facility](11/27/23 16:17) bd Diagnosis - Chest pain, unspecified rt Forms: - Medication Reconciliation Form rt - SBAR form rt - Leadership Thank You Letter rt Signatures: Dispatcher [employer] Pippa Rojo Irene, RN RN iw Swati Carbajal RN RN kb3 Brandon Wilson MD MD rt Ish Fajardo RN RN rs5 Corrections: (The following items were deleted from the chart) 14:51 11:00 Telemetry/MedSurg (observation) rt kb3 14:51 11:00 rt kb3 16:17 14:51 BR ER HOLD kb3 bd 16:17 14:51 ERHOLD- kb3 bd
--- NOTE | 2023-11-27 11:01 | ER ---
Nurse's Notes [facility] Name: Pearl Bolden Age: 58 yrs Sex: Female : 1965 Arrival Date: 11/27/2023 Time: 08:22 Bed 13 Private MD: Diagnosis: Chest pain, unspecified Presentation: 11/26 08:29 Chief complaint: Patient states: chest pressure and my left arm feels tingly, started iw at 4 am when I woke up , pain also in neck radiating down arm. Coronavirus screen: At this time, the client does not indicate any symptoms associated with coronavirus-19. Ebola Screen: No symptoms or risks identified at this time. Initial Sepsis Screen: Does the patient meet any 2 criteria? No. Patient's initial sepsis screen is negative. Does the patient have a suspected source of infection? No. Patient's initial sepsis screen is negative. Risk Assessment: Do you want to hurt yourself or someone else? Patient reports no desire to harm self or others. Onset of symptoms was November 27, 2023. 08:29 Method Of Arrival: Ambulatory iw 08:29 Acuity: RED 3 iw Historical: - Allergies: 08:29 No Known Allergies; iw - PMHx: 08:29 Arthritis; iw - PSHx: 08:29 Cholecystectomy; iw - Immunization history:: Adult Immunizations up to date. - Infectious Disease History:: Denies. - Social history:: Smoking status: Patient denies any tobacco usage or history of. Screenin:35 [facility] ED Fall Risk Assessment (Adult) History of falling in the last 3 months, rs5 including since admission No falls in past 3 months (0 pts) Confusion or Disorientation No (0 pts) Intoxicated or Sedated No (0 pts) Impaired Gait No (0 pts) Mobility Assist Device Used No (0 pt) Altered Elimination No (0 pt) Score/Fall Risk Level 0 - 2 = Low Risk Oriented to surroundings, Maintained a safe environment. Abuse screen: Denies threats or abuse. Nutritional screening: No deficits noted. Tuberculosis screening: No symptoms or risk factors identified. Assessment: 08:32 General: Appears in no apparent distress. uncomfortable, Behavior is calm, cooperative. rs5 Pain: Complains of pain in chest Pain radiates to left arm Pain currently is 5 out of 10 on a pain scale. Quality of pain is described as pressure, Pain began. Neuro: Level of Consciousness is awake, alert, obeys commands, Oriented to person, place, time, situation. Cardiovascular: Patient's skin is warm and dry. Respiratory: Airway is patent Respiratory effort is even, unlabored, Respiratory pattern is regular, symmetrical. GI: Abdomen is round non-distended. : No signs and/or symptoms were reported regarding the genitourinary system. EENT: No signs and/or symptoms were reported regarding the EENT system. Derm: Skin is intact, Skin is pink, warm \T\ dry. Musculoskeletal: Range of motion: intact in all extremities. 08:45 Reassessment: to bedside, 0.4 mg nitro adm sublingual x2 for chest pain relief.. rs5 09:00 Reassessment: Patient and/or family updated on plan of care and expected duration. Pain rs5 level reassessed. Patient is alert, oriented x 3, equal unlabored respirations, skin warm/dry/pink. Patient denies pain at this time. Patient states feeling better. Patient states symptoms have improved. 09:57 Reassessment: Patient and/or family updated on plan of care and expected duration. Pain rs5 level reassessed. Patient is alert, oriented x 3, equal unlabored respirations, skin warm/dry/pink. 11:01 Reassessment: Patient and/or family updated on plan of care and expected duration. Pain rs5 level reassessed. Patient is alert, oriented x 3, equal unlabored respirations, skin warm/dry/pink. 11:37 Reassessment: Patient and/or family updated on plan of care and expected duration. Pain rs5 level reassessed. Patient is alert, oriented x 3, equal unlabored respirations, skin warm/dry/pink. Vital Signs: 08:29 BP 125 / 87; Pulse 86; Resp 16; Temp 97; Pulse Ox 97% ; Weight 90.72 kg; Height 5 ft. 3 iw in. ; Pain 0/10; 08:35 BP 111 / 83; Pulse 70; Resp 17; Pulse Ox 99% on R/A; rs5 09:00 BP 107 / 79; Pulse 74; Resp 17; Pulse Ox 99% on R/A; rs5 09:57 BP 115 / 82; Pulse 79; Resp 17; Pulse Ox 99% on R/A; rs5 11:31 BP 110 / 74; Pulse 70; Resp 16; Pulse Ox 99% ; rs5 08:29 Body Mass Index 35.43 (90.72 kg, 160.02 cm) iw 08:29 Pain Scale: Adult iw ED Course: 08:25 Patient arrived in ED. im 08:31 Triage completed. iw 08:32 Brandon Wilson MD is Attending Physician. rt 08:35 Inserted saline lock: 20 gauge in right antecubital area, using aseptic technique. rs5 Blood collected. Flushed with 10 mL NS. 08:35 Patient maintains SpO2 saturation greater than 95% on room air. rs5 08:35 No provider procedures requiring assistance completed. rs5 08:35 Patient has correct armband on for positive identification. Placed in gown. Bed in low rs5 position. Call light in reach. Side rails up X2. Client placed on continuous cardiac and pulse oximetry monitoring. NIBP monitoring applied. phototypesetting equipment monitor on. 09:33 Ish Fajardo, MARILIN is Primary Nurse. rs5 09:44 XRAY Chest (1 view) In Process Unspecified. EDMS 11:00 Andrzej Jacques is Hospitalizing Provider. rt 11:40 Patient admitted, IV remains in place. rs5 11:40 Provided Education on: need for admit . rs5 Administered Medications: 08:35 Drug: Nitroglycerin Sublingual 0.4 mg Sublingual once; every five minute if needed x3 rs5 Route: Sublingual; 08:40 Drug: Aspirin PO 325 mg PO once Route: PO; rs5 09:20 Follow up: Response: No adverse reaction rs5 08:40 Drug: Nitroglycerin Sublingual 0.4 mg Sublingual once; every five minute if needed x3 rs5 Route: Sublingual; 09:00 Follow up: Response: No adverse reaction; Pain is decreased rs5 10:55 Drug: Acetaminophen PO 1000 mg PO once Route: PO; rs5 12:10 Follow up: Response: No adverse reaction; Pain is decreased rs5 Medication: 08:33 VIS not applicable for this client. rs5 Outcome: 11:00 Decision to Hospitalize by Provider. rt 11:40 Admitted to ER Hold. Please see [facility] for further documentation. rs5 11:40 Condition: stable 11:40 Instructed on the need for admit, Demonstrated understanding of instructions, 17:17 Patient left the ED. rs5 Signatures: Dispatcher [employer] Jania Cabello, Brandon Gauthier RN, MD MD rt Ish Fajardo RN RN rs5 Feli Smalls
--- NOTE | 2023-11-27 11:11 | P.HP ---
Certification for Inpatient Patient admitted to: Observation With expected LOS: <2 Midnights Patient will require the following post-hospital care: None Practitioner: I am a practitioner with admitting privileges, knowledge of patient current condition, hospital course, and medical plan of care. Services: Services provided to patient in accordance with Admission requirements found in Title 42 Section 412.3 of the Code of Federal Regulations Patient History Date of Service: 11/27/23 Reason for admission: Chest pain R/O History of Present Illness: Pearl Bolden is a 58 year old female with past medical history of arthritis who presents to the ED with chief complaint of chest pressure with nausea and tingling sensation in left arm that started this morning. She reports feeling well when she went to bed last night. While in the ED, chest pain was relieved with nitroglycerin. On examination, no acute distress noted, but she has started chest pain again. Repeat EKG negative, troponin remain flat. Laboratory evaluation potassium 3.2, serum glucose 337, troponin 4.3/3.9. Initial vitals BP 125 / 87; Pulse 86; Resp 16; Temp 97; Pulse Ox 97% Chest x-ray reports "No acute abnormality is displayed." Pearl will be admitted to hospitalist service for further evaluation of Chest pain r/o ACS, Dr. Cross consulted. Allergies No Known Allergies Allergy (Unverified 09/15/11 02:59) Home Medications: Ibuprofen 600 mg PO DAILYPRN PRN 09/15/11 - Past Medical/Surgical History -: Arthritis Past Surgical History: Reviewed- Non-Contributory - Family History Family History: Reviewed- Non-Contributory - Social History Smoking Status: Never smoker Alcohol use: No CD- Drugs: No Caffeine use: Yes Review of Systems Cardiovascular: Chest Pain Musculoskeletal: Arm Pain (left tingling) Physical Examination - Studies Laboratory Data (last 24 hrs) 11/27/23 11/27/23 08:57 08:57 WBC 9.20 Hgb 13.9 Hct 42.3 Plt Count 255 Sodium 135 L Potassium 3.2 L BUN 17 Creatinine 0.90 Glucose 337 H Total Bilirubin 0.5 AST 19 ALT 39 Alkaline Phosphatase 147 H Assessment and Plan - Plan Assessment and plan Chest pain rule out ACS - EKG: No obvious ST segment changes, trend - troponin 4.3, Serial pending - Ordered transthoracic echocardiogram - chest x-ray "No acute abnormality is displayed." - Consult Cardiology - Stress test in the AM - S/P aspirin 324 mg PO x 1 in ED - Start daily baby aspirin and statin - Symptom control with PRN acetaminophen, nitroglycerin, morphine -continuous telemetry -TSH/FreeT4, A1C, lipid panel pending Hypokalemia -k 3.2 -Replaced IV -Monitor in a.m. labs, replace as needed Hyperglycemia -Serum glucose 337 -Accu-Chek with sliding scale insulin -A1c in the a.m. Hx of arthritis -continue home medications -supportive care DVT ppx SCD Full code LOS 24 hour OBS Discharge Plan: Home Plan to discharge in: 24 Hours - Advance Directives Does patient have a Living Will: No Does patient have a Durable POA for Healthcare: No
--- NOTE | 2023-11-27 12:53 | P.CNS ---
Date of Consult: 11/27/23 Chief Complaint: chest pain History of Present Illness: Patient with no significant PMH presented with chest pain that started yesterday, pressure in nature, radiating to left arm, denies prior symptoms, no other cardiac symptoms. Allergies No Known Allergies Allergy (Unverified 09/15/11 02:59) Home medications list reviewed: Yes Home Medications: Ibuprofen 600 mg PO DAILYPRN PRN 09/15/11 - Social History Smoking Status: Never smoker Alcohol use: No CD- Drugs: No Caffeine use: Yes Review of Systems 10-point ROS is otherwise unremarkable Physical Examination General: Alert, In no apparent distress HEENT: Atraumatic, PERRLA, Mucous membr. moist/pink, EOMI, Sclerae nonicteric Neck: Supple, 2+ carotid pulse no bruit, No LAD, Without JVD or thyroid abnormality Respiratory: Clear to auscultation bilaterally, Normal air movement Cardiovascular: Regular rate/rhythm, Normal S1 S2 Gastrointestinal: Normal bowel sounds, No tenderness Musculoskeletal: No tenderness Integumentary: No rashes Neurological: Normal gait, Normal speech, Normal tone, Normal affect Lymphatics: No axilla or inguinal lymphadenopathy Laboratory Data (last 24 hrs) 11/27/23 11/27/23 08:57 08:57 WBC 9.20 Hgb 13.9 Hct 42.3 Plt Count 255 Sodium 135 L Potassium 3.2 L BUN 17 Creatinine 0.90 Glucose 337 H Total Bilirubin 0.5 AST 19 ALT 39 Alkaline Phosphatase 147 H - Problems (1) Chest pain Current Visit: Yes Status: Acute Plan: concern for angina NPO after midnight for chemical stress test in am ([facility]) get echo ASA 81 mg daily Lipitor 40 mg daily
[2023-11-27] MEDS ORDERED: NITROGLYCERIN 0.4 MG/TAB SL PRN (14:59)
[2023-11-27] MEDS ORDERED: NA CHLORIDE 0.9% 1,000 ML ONE (15:21)
[2023-11-27] MEDS ORDERED: KCL 20 MEQ/100 mL IVPB 100 ML IV ONE (15:21)
[2023-11-27] MEDS ORDERED: GLUCAGON 1 MG/VIAL IM PRN (15:32)
[2023-11-27] MEDS ORDERED: D10W 125 ML IV PRN (15:32)
[2023-11-27] MEDS: INSULIN REGULAR (HUMAN) 100 UNIT/ML SQ SCH (16:30)
[2023-11-27] MEDS: ACETAMINOPHEN 325 MG TABLET PO PRN (17:55)
[2023-11-27] MEDS: KCL 20 MEQ/100 mL IVPB 20 MEQ/100 ML BAG IV SCH (18:08)
[2023-11-27] MEDS: ATORVASTATIN 40 MG TAB PO SCH (21:28)
[2023-11-28 06:56] LABS: Absolute Eosinophils 0.1 K/uL (0-0.5); Absolute Lymphocytes (CBC) 3.3 K/uL (0.7-4.9); Absolute Monocytes 0.5 K/uL (0.1-1.3); Absolute Neutrophil 4.6 K/uL (1.8-8.0); Basophils % 0.3 % (0-1.3); Eosinophils % 1.5 % (0-4.4); Hemoglobin 13.9 g/dL (12.0-15.0); Lymphocytes % 38.5 % (15.3-44.8); MCH 29.5 pg (27.0-35.0); MCHC 33.2 g/dL (32.0-36.0); MPV 8.8 fL (7.6-11.3); Monocytes % 6.3 % (3.3-12.3); Neutrophils % 53.4 % (41.7-73.7); Nucleated Red Blood Cells % 0.1 % (0-0); Platelets 257 thou/uL (152-406); RBC Red Blood Cell Count 4.72 M/uL (3.86-4.86); Red Cell Distribution Width 13.8 % (12.1-15.2)
[2023-11-28 07:23] LABS: Anion Gap 6.6 mEq/L (5.0-15.0); Phosphorus 3.3 mg/dL (2.5-4.9); Potassium 3.6 mEq/L (3.5-5.1); Thyroid Stimulating Hormone 2.26 uIU/mL (0.358-3.740)
[2023-11-28] MEDS: ASPIRIN EC 81 MG TAB PO SCH (07:36)
--- NOTE | 2023-11-28 07:51 | ECHO ---
HEIGHT: 5 ft 3 in WEIGHT: 200 lb 0 oz DATE OF STUDY: 11/27/[address]: Latrice Castaneda NP 2-DIMENSIONAL: YES M.MODE: YES DOPPLER: YES COLOR FLOW: YES TDS: YES PORTABLE: YES DEFINITY: BUBBLE STUDY: DIAGNOSIS: CHEST PAIN CARDIAC HISTORY: CATHERIZATION: NO SURGERY: NO PROSTHETIC VALVE: NO PACEMAKER: NO MEASUREMENTS (cm) DIASTOLIC (NORMALS) SYSTOLIC (NORMALS) IVSd 1.1 (0.6-1.2) LA Diam 2.2 (1.9-4.0) LVEF 60-65% LVIDd 3.1 (3.5-5.7) LVIDs 2.3 (2.0-3.5) %FS 26% LVPWd 1.1 (0.6-1.2) Ao Diam 2.7 (2.0-3.7) 2 DIMENSIONAL ASSESSMENT: RIGHT ATRIUM: NORMAL LEFT ATRIUM: NORMAL RIGHT VENTRICLE: NORMAL LEFT VENTRICLE: NORMAL TRICUSPID VALVE: NORMAL MITRAL VALVE: NORMAL PULMONIC VALVE: NORMAL AORTIC VALVE: NORMAL PERICARDIAL EFFUSION: NONE AORTIC ROOT: NORMAL LEFT VENTRICULAR WALL MOTION: NORMAL DOPPLER/COLOR FLOW: NORMAL COMMENTS: 1. NORMAL LEFT VENTRICULAR SYSTOLIC FUNCTION, EJECTION FRACTION 60-65%, NORMAL WALL MOTION 2. NORMAL DIASTOLIC FUNCTION TECHNOLOGIST: ROSALIND AMBROCIO
[2023-11-28 10:43] VITALS: O2SAT 95
[2023-11-28] MEDS ORDERED: REGADENOSON 0.4 MG/5 ML SYR IV ONE (11:49)
[2023-11-28] MEDS: POTASSIUM CL SA 10 MEQ TAB PO ONE (12:43)
[2023-11-28] MEDS: MORPHINE 2 MG/ML SYR IV PRN (12:43)
[2023-11-28 13:32] VITALS: BP 128/81; TEMP 97.2
[2023-11-28] MEDS: GUAIFENESIN 600 MG SA TAB PO SCH (13:59)
--- NOTE | 2023-11-28 14:17 | RAD REPORT ---
EXAM: Nuclear medicine cardiac perfusion examination with ejection fraction HISTORY: Chest pain TECHNIQUE: Rest images: 10.9 mCi technetium 99m sestamibi Stress images: 28.7 mCi of technetium 99m sestamibi; Lexiscan 0.4 mg was administered for pharmacolog ic stress. COMPARISON: None FINDINGS: Tomographic images: No fixed or reversible perfusion defects. Gated images: Normal wall motion and ejection fraction of 74%. EDV: 42 mL ESV: 11 mL TID: 0.98 IMPRESSION: No scintigraphic evidence of myocardial ischemia. Left ventricular ejection fraction:74%. Reduced end-systolic volume may relate to long-standing hyper tension.
[2023-11-28 14:57] VITALS: BMI 35.4
--- NOTE | 2023-11-28 16:09 | P.PN ---
Subjective Date of Service: 11/28/23 Chief Complaint: Chest pain R/O Subjective: No new changes, No C/O voiced, Tolerating diet, Ambulating, Improving Review of Systems 10-point ROS is otherwise unremarkable Physical Examination - Vital Signs Temperature: 97.2 F Blood Pressure: 128/81 Pulse: 111 Respirations: 18 Pulse Ox (%): 98 - Physical Exam General: Alert, In no apparent distress HEENT: Atraumatic, PERRLA, EOMI Neck: Supple, JVD not distended Respiratory: Clear to auscultation bilaterally, Normal air movement Cardiovascular: Regular rate/rhythm, Normal S1 S2 Gastrointestinal: Normal bowel sounds, No tenderness Musculoskeletal: No tenderness Integumentary: No rashes Neurological: Normal speech, Normal tone, Normal affect Lymphatics: No axilla or inguinal lymphadenopathy - Studies Medications List Reviewed: Yes Assessment And Plan - Current Problems (Diagnosis) (1) Chest pain Current Visit: Yes Status: Acute Plan: Nuclear stress test is negative Echo is normal ASA 81 mg daily Lipitor 40 mg daily No further cardiac work up needed
--- NOTE | 2023-11-28 16:43 | P.DS ---
Admission Date: 11/27/23 Discharge Date: 11/28/23 Disposition: ROUTINE DISCHARGE Discharge Condition: GOOD Reason for Admission: Chest pain R/O Brief History of Present Illness: Pearl Bolden is a 58 year old female with past medical history of arthritis who presents to the ED with chief complaint of chest pressure with nausea and tingling sensation in left arm that started this morning. She reports feeling well when she went to bed last night. While in the ED, chest pain was relieved with nitroglycerin. On examination, no acute distress noted, but she has started chest pain again. Repeat EKG negative, troponin remain flat. Laboratory evaluation potassium 3.2, serum glucose 337, troponin 4.3/3.9. Initial vitals BP 125 / 87; Pulse 86; Resp 16; Temp 97; Pulse Ox 97% Chest x-ray reports "No acute abnormality is displayed." Pearl will be admitted to hospitalist service for further evaluation of Chest pain r/o ACS, Dr. Cross consulted. Hospital Course: [text] is a pleasant [text] with a past medical history significant for [text] who was [facility] to [facility] on 11/27/23 for Chest pressure, left arm tingling. [text] Pearl continues with some chest pressure as well as sinus pressure. Chest xray was clear on admission, a few PVC on telemetry, EKG with no ST abnormalities, stress test and troponins negative for acute findings. Offered a CTA chest for further investigation of possible PE but patient refused and requested to leave. Blood sugar was elevated and treated with insulin A1C 10.2 and will need further treatment with PCP outpatient for close monitoring. On 11/28/23, [text] was seen on morning rounds and deemed medically stable for discharge. [text] was discharged with instructions to schedule follow-up appointments with [text]. [text] was provided prescriptions for aspirin and atorvastatin. Vital Signs/Physical Exam: Temp Pulse Resp BP Pulse Ox 97.2 F 111 H 18 128/81 98 11/28/23 16:09 11/28/23 16:09 11/28/23 16:09 11/28/23 16:09 11/28/23 16:09 Laboratory Data at Discharge: WBC 8.70 thou/uL (4.3-10.9) 11/28/23 05:37 Hgb 13.9 g/dL (12.0-15.0) 11/28/23 05:37 Hct 42.0 % (36.0-45.0) 11/28/23 05:37 Plt Count 257 thou/uL (152-406) 11/28/23 05:37 Sodium 137 mEq/L (136-145) 11/28/23 05:37 Potassium 3.6 mEq/L (3.5-5.1) 11/28/23 05:37 BUN 15 mg/dL (7-18) 11/28/23 05:37 Creatinine 0.75 mg/dL (0.55-1.02) 11/28/23 05:37 Glucose 256 mg/dL (74-106) H 11/28/23 05:37 Phosphorus 3.3 mg/dL (2.5-4.9) 11/28/23 05:37 Magnesium 2.0 mg/dL (1.6-2.4) 11/28/23 05:37 Total Bilirubin 0.5 mg/dL (0.2-1.0) 11/27/23 08:57 AST 19 U/L (15-37) 11/27/23 08:57 ALT 39 U/L (13-56) 11/27/23 08:57 Alkaline Phosphatase 147 U/L (45-117) H 11/27/23 08:57 Triglycerides 215 mg/dL (<150) H 11/28/23 05:37 Cholesterol 178 mg/dL (<200) 11/28/23 05:37 HDL Cholesterol 49 mg/dL (40-60) 11/28/23 05:37 Cholesterol/HDL Ratio 3.63 11/28/23 05:37 Home Medications: Celecoxib [Celebrex] 200 mg PO DAILY 11/27/23 Famotidine 20 mg PO BID 11/27/23 Folic Acid 1 mg PO DAILY 11/27/23 Pregabalin 50 mg PO DAILY 11/27/23 predniSONE [Prednisone] 20 mg PO DAILY 11/27/23 Aspirin [Aspirin EC 81 MG] 81 mg PO DAILY 30 Days #30 tab 11/28/23 Atorvastatin Calcium [Lipitor] 40 mg PO BEDTIME 30 Days #30 tab 11/28/23 New Medications: Aspirin [Aspirin EC 81 MG] 81 mg PO DAILY 30 Days #30 tab Atorvastatin Calcium [Lipitor] 40 mg PO BEDTIME 30 Days #30 tab Physician Discharge Instructions: 1. Please call and schedule a follow-up appointment with your PCP in 3-5 days - Please follow-up with your PCP for medication refills/adjustments 2. Please call and schedule a follow-up appointment with Dr. Cross in 2 weeks -ECHO and stress test normal 3. Continue heart healthy diet 4. no activity restrictions 5. Return to the ED if symptoms worsen New medications Aspirin 81 mg by mouth daily Lipitor 40 mg by mouth daily Diet: AHA Activity: Ad gracy Followup: Minesh Cross MD [ACTIVE - CAN ADMIT] - (follow up in 2 weeka, call to schedule an appointment) Carmelo Fontanez DO [Primary Care Provider] - (follow up in 3-5 days, call to schedule an appointment)
--- NOTE | 2023-11-29 07:50 | TREADPHA ---
DX: CHEST PAIN Date of Study: 11/28/2023 Ht: 5' 3 " Wt: 200 lb 0 oz Consulting Physician: JENNIFER MEDICATIONS: TYLENOL, ASPIRIN, LIPITOR, DEXTROSE, GLUCAGEN, NOVOLIN R, MORPHINE, NITROSTAT, ZOFRAN HISTORY: 58 YEAR OLD FEMALE WITH COMPLIANTS OF CHEST PRESSURE. HISTORY OF DIABETES AND ARTHRITIS PHYSICIAL EXAMINATION: RESTING B.P.: 118/73 RESTING H.R.: 111 RESTING EKG: NORMAL SINUS RHYTHM, PREMATURE VENTRICULAR COMPLEXES PROTOCOL: PHARMACOLOGIC EXERCISE TIME: 3:30 B.P. AT PEAK STRESS: 107/60 IMPRESSION: LEXISCAN INJECTED. CARDIOLITE INJECTED - SEE NUCLEAR MEDICINE REPORT. NO CHEST PAIN. COMPLAINTS OF CHEST PRESSURE. OCCASIONAL PREMATURE VENTRICULAR COMPLEXES THROUGHOUT. NO VENTRICULAR TACHYCARDIA. NO SUPRAVENTRICULAR TACHYCARDIA. COMPLAINTS OF ABDOMINAL PAIN, FEELING OF DIARRHEA. NO ELECTROCARDIOGRAM CHANGES OF ISCHEMIA.
--- NOTE | 2023-11-29 11:58 | EKG ---
Test Date: 2023-11-27 Test Time: 08:36:56 Day Porter: MACK MEASUREMENT RESULTS: Intervals: Rate: 79 OK: 142 QRSD: 76 QT: 364 QTc: 417 [place]: P: 57 OK: 142 QRS: 56 T: 53 INTERPRETIVE STATEMENTS: Normal sinus rhythm Normal ECG No previous ECG available for comparison Electronically Signed On 11-29-23 11:53:24 CDT by Minesh Cross
== END 2023-11-28 17:50 | disposition home or self-care (01) ==
LOC: ER 08:22 → ERHOLD 11:00 → 4TH 16:23
PROVIDERS: ADMIT Internal Medicine; ATTEND Internal Medicine
DX: R07.9 Chest pain, unspecified (principal); M19.90 Unspecified osteoarthritis, unspecified site; R11.0 Nausea; R20.2 Paresthesia of skin; E87.6 Hypokalemia; R73.9 Hyperglycemia, unspecified
CPT/HCPCS: 93005; 93017; 93306; 85025 ×2; 80048 ×2; 36415; 83735; 84100; 80061; 82947 ×4; 80076; 84443; 83036; 84484 ×3; 84439; 71045; 78452; J3480 ×2; J2785; J2270; J7030; A9500; 99285; G0378

== ENCOUNTER 2023-12-17 12:00 | Emergency (ER) | payer OTHER ==
--- OUTSIDE RECORDS SUMMARY | 2023-12-17 12:05 | XMS REPORT | Continuity of Care Document ---
Author Name Unknown Address [address] [place] [address] [facility] thconnect Address [address] [place] [address] Care Team Providers Care Toaster Element Repairer Name Role Phone PCP, PATIENT DOES NOT HAVE A Primary Care Physic nia Unavailable KODAK SNYDER Attending Clinician Unavailable ROWAN GOMEZ Attending Clinician Unavailable WHITNEY CASTILLO Attending Clinician Unavailabl e [id number] Attending Clinician Unavailable VIKTOR CRUZ Attending Clinician Unavailab le [id number] Attending Clinician Unavailable YAEL WARREN Attending Clinician Unava ilable [id number] Attending Clinician Unavailable Tamar Grewal Attending Clinician [phone] Tamar MUELLER Attending Clinician Unavailable CARMEN MAGALLANES Attending Clinician Unavailable Carmen Magallanes DO Attending Clinician +[phone] Doctor Unassigned, [place] Attending Clinician U Kristy Garza Attending Clinician [phone] Olivia Vargas MD Attending Clinician + OLIVIA VARGAS Attending Clinician Unavailable CARMEN MAGALLANES Admitting Clinician Unavailable KRISTY STRICKLAND Admitting Clinician Unavailable Payers Payer Name Policy Type Policy Number Effective Date Expirati on Date Source [facility] [employer]IMBO [employer]AY [employer] 9 [id number] 2023 00:00:00 COMMERCIAL NON-CONTRACT GENERIC [id number] 2023 00:00:00 [facility] [id number] 2015 00:00:00 Problems Condition Name Condition Details Condition Category Status Onset Date Resolution Date Last Treatment Date Treating Clinician Comments Source Elevated liver function tests Elevated liver function tests Disease Active 2023-02 00:00: 00 Adeline Garciaold - Externa l Current chronic use of systemic steroids Current chronic use of systemic steroids Disease Active 2023-02 00:00: 00 Adeline Garciaold - Externa l Immunodefi ciency due to conditions classified elsewhere (multi HCC) Immunodefi ciency due to conditions classified elsewhere (multi HCC) Disease Active 2023-02 00:00: 00 Adeline Milianybold - Externa l Severe obesity Severe obesity Disease Active 2023-02 00:00: 00 Adeline Seybold - Externa l Type 2 diabetes mellitus with hyperglyce marissa, without long-term current use of insulin (multi HCC) Type 2 diabetes mellitus with hyperglyce marissa, without long-term current use of insulin (multi HCC) Disease Active 2023-02 00:00: 00 Adeline Garciaold - Externa l Hospital discharge follow-up Hospital discharge follow-up Disease Active 2023-02 0- 00:00: 00 Adeline Seybold - Externa l Rheumatoid arthritis (multi HCC) Rheumatoid arthritis (multi HCC) Disease Active 2023-02 0-04 00:00: 00 Adeline Milianybold - Externa l Acute serous otitis media, right ear Acute serous otitis media, right ear Disease Active 4-08 00:00: 00 Adeline Milianybold - Externa l No known active problems No known active problems Disease [facility] Allergies, Adverse Reactions, Alerts Allergy Name Allergy Type Status Severity Reaction(s) Onset Date Inactive Date Treating Clinician Comments Source NO KNOWN ALLERGIE S Drug Class Active [facility] Social History Social Habit Start Date Stop Date Quantity Comments Source [facility] Ad[facility] Ca - External Alcoholic beverage intake 2023-12-12 00:00:00 2023-12-12 00:00:00 Current drinker of alcohol (finding) Adeline [...] (event) 2022-01-07 00:00:00 2022-01-17 07:46:00 Not sure [facility] Sex 2015-03-16 14:29:39 2015-03-16 14:29:39 Female (finding) Adeline Ca - External Sex assigned at 1965 00:00:00 1965 00:00:00 Adeline Ca - External Smoking Status Start Date Stop Date Source Tobacco smoking consumption unknown [facility] Never smoked tobacco Adeline Ca - External Medications Ordered Medication Name Filled Medication Name Start Date Stop Date Current Medication? Ordering Clinician Indication Dosage Frequency Signature (SIG) Comments Components Source Metformin HCl 500 MG oral Tablet 2023-02 00:00: 00 Yes [id number] 500mg Take 1 tablet (500 mg total) by mouth in the morning and 1 tablet (500 mg total) in the evening. Take with meals. Adeline mancia Dulaglutide (Trulicity) 0.75 MG/0.5ML subcutaneou s Solution Pen-injecto r 2023-02 00:00: 00 Yes [id number] 9109 .75mg Q1W Inject 0.75 mg into the skin once a week. Adeline mancia Amoxicillin -Pot Clavulanate 875-125 MG oral Tablet 2023-02 00:00: 00 Yes [id number] 1{tbl} Q.5D Take 1 tablet by mouth 2 times daily. Adeline mancia Benzonatate (Tessalon Perles) 100 MG oral Capsule 2023-02 00:00: 00 Yes [id number] 100mg Q.[id number] 3D Take 1 capsule (100 mg total) by mouth 3 times daily as needed for cough. Adeline mancia Albuterol HFA 108 (90 Base) MCG/ACT IN AERS 2023-02 00:00: 00 Yes [id number] 2{puff} Q.25D Inhale 2 puffs into the lungs every 6 hours as needed for wheezing or shortness of breath. Adeline mancia Ibuprofen (MOTRIN) 200 MG oral Tablet 2023-02 16:46: 34 12-03 00:00 :00 No 200mg Q.25D Take 1 tablet (200 mg total) by mouth every 6 hours as needed. Adeline mancia predniSONE (DELTASONE) 5 MG oral Tablet 2023-02 00:00: 00 02-02 05:59 :00 Yes [id number] 10mg QD Take 2 tablets (10 mg total) by mouth daily. Adeline mancia Ibuprofen (MOTRIN) 200 MG oral Tablet 2023-02 11:09: 35 Yes 200mg Q.25D Take 1 tablet (200 mg total) by mouth every 6 hours as needed. Adeline mancia Tocilizumab (Actemra ACTPen) 162 MG/0.9ML subcutaneou s Solution Auto-inject or 2023-02 00:00: 00 02-28 05:59 :00 Yes [id number] 162mg Inject 0.9 mL (162 mg total) into the skin every other week. Adeline mancia predniSONE (DELTASONE) 5 MG oral Tablet 2023-02 00:00: 00 2024- 12-10 05:59 :00 Yes 15mg QD Take 3 tablets (15 mg total) by mouth daily. Adeline mancia Certolizuma b Pegol 200 MG/ML subcutaneou s Prefilled Syringe Kit 2023-02 0-04 00:00: 00 11-29 00:00 :00 No [id number] 400mg Inject 400 mg into the skin once a month. Adeline mancia Ibuprofen (MOTRIN) 200 MG oral Tablet 10-11 10:11: 46 Yes 200mg Q.25D Take 1 tablet (200 mg total) by mouth every 6 hours as needed. Adeline mancia Pregabalin (Lyrica) 50 MG oral Capsule 10-11 00:00: 00 Yes [id number] 50mg Q.5D Take 1 capsule (50 mg total) by mouth 2 times daily. Adeline mancia Folic Acid 1 MG oral tablet 10-07 00:00: 00 11-29 00:00 :00 No [id number] TAKE 1 TABLET(1 MG) BY MOUTH DAILY. EXCEPT FOR DAYS DOING METHOTREXA TE Adeline mancia predniSONE (DELTASONE) 5 MG oral Tablet 09-26 00:00: 00 10-27 04:59 :00 Yes [id number] 15mg QD Take 3 tablets (15 mg total) by mouth daily. Adeline mancia Celecoxib 200 MG oral Capsule 09-05 00:00: 00 Yes [id number] 200mg Q.5D Take 1 capsule (200 mg [...] s Prefilled Syringe Kit 08-30 00:00: 00 11-29 00:00 :00 No [id number] 400 mg every 2 weeks for 3 doses then 400 mg every 4 weeks. Adeline mancia predniSONE (DELTASONE) 5 MG oral Tablet 08-30 00:00: 09-30 04:59 :00 No [id number] 15mg QD Take 3 tablets (15 mg total) by mouth daily. Adeline mancia Tofacitinib Citrate ER (Xeljanz XR) 11 MG oral TABLET SR 24 HR 08-20 00:00: 00 08-30 00:00 :00 No 11mg QD Take 11 mg by mouth daily. Adeline mancia Famotidine (PEPCID) 20 MG oral tablet 08-16 00:00: 00 Yes [id number] 20mg Q.5D Take 1 tablet (20 mg total) by mouth 2 times daily. Adeline mancia Ibuprofen (MOTRIN) 200 MG oral Tablet 08-02 15:56: 38 Yes 200mg Q.25D Take 1 tablet (200 mg total) by mouth every 6 hours as needed. Adeline mancia Triamcinolo ne Acetonide 0.1 % apply externally Cream 08-02 00:00: 00 08-31 04:59 :00 No [id number] Apply to affected area twice a day. Adeline mancia Ibuprofen (MOTRIN) 200 MG oral Tablet 07-12 14:35: 34 Yes 200mg Q.25D Take 1 tablet (200 mg total) by mouth every 6 hours as needed. Adeline mancia Pregabalin (Lyrica) 50 MG oral Capsule 07-12 00:00: 00 10-11 00:00 :00 No [id number] 50mg Q.5D Take 1 capsule (50 mg total) by mouth 2 times daily. Adeline mancia Folic Acid 1 MG oral tablet 07-09 00:00: 00 Yes [id number] TAKE 1 TABLET(1 MG) BY MOUTH DAILY. EXCEPT FOR DAYS DOING METHOTREXA TE Adeline mancia Celecoxib 200 MG oral Capsule 07-04 00:00: 00 Yes [id number] 200mg Q.5D Take 1 capsule (200 mg total) by mouth 2 times daily as needed for pain. Adeline mancia Tofacitinib Citrate ER (Xeljanz XR) 11 MG oral TABLET SR 24 HR 06-06 00:00: 00 08-06 04:59 :00 No [id number] 11mg Take 11 mg by mouth daily. Adeline mancia methylpredn isolone sod succ (SOLU-MEDRO L) injection 125 mg 05-30 00:15: 00 05-29 23:26 :00 No 125mg 125 mg, Intravenou s, ONCE, 1 dose, On Sun05/30/23 at 1915, [facility] diphenhydrA MINE (BENADRYL) injection 25 mg 05-30 00:15: 00 05-29 23:23 :00 No 25mg 25 mg, Slow IV Push, ONCE, 1 dose, On Sun05/30/23 at 1915, STAT [facility] famotidine (PEPCID (PF)) injection 20 mg 05-29 23:15: 00 05-29 23:23 :00 No 20mg 20 mg, Slow IV Push, ONCE, 1 dose, On Sun05/30/23 at 1815, [facility] predniSONE 20 mg tablet 05-29 00:00: 00 Yes [id number] 1 PO BID x 4 days [facility] Adalimumab (Humira, 2 Syringe,) 40 [...] MG oral Capsule 05-20 00:00: 00 Yes [id number] 200mg Take 1 capsule (200 mg total) by mouth 2 times daily. Adeline mancia Amoxicillin -Pot Clavulanate 500-125 MG oral Tablet 05-20 00:00: 00 08-02 00:00 :00 No [id number] 1{tbl} Take 1 tablet by mouth every 12 hours. Adeline mancia Tofacitinib Citrate ER (Xeljanz XR) 11 MG oral TABLET SR 24 HR 05-13 00:00: 00 05-20 00:00 :00 No [id number] 11mg Take 11 mg by mouth daily. [...] 05-10 00:00: 00 08-09 04:59 :00 No [id number] 20mg Take 1 tablet (20 mg total) by mouth 2 times daily. Aedline mancia predniSONE (DELTASONE) 5 MG oral Tablet 05-10 00:00: 00 06-10 04:59 :00 No [id number] 5mg Take 1 tablet (5 mg total) by mouth daily. Adeline mancia Methotrexat e 25 MG/ML subcutaneou s Solution Prefilled Syringe 04-06 18:30: 26 04-06 00:00 :00 No 25mg Inject 25 mg into the skin once a week. Adeline mancia Folic Acid 1 MG oral tablet 04-06 18:30: 04-06 00:00 :00 No 1mg Take 1 [...] 04-06 00:00: 00 07-05 04:59 :00 No [id number] 1mg Take 1 tablet (1 mg total) by mouth daily Except for days doing methotrexa te. Adeline mancia Methotrexat e 25 MG/ML subcutaneou s Solution Prefilled Syringe 04-06 00:00: 00 05-20 00:00 :00 No [id number] 17.5mg Inject 17.5 mg into the skin once a week. Adeline mancia Methotrexat e 50 MG/2ML injection Solution 1-31 00:00: 00 11-29 00:00 :00 No INJECT 0.7 ML UNDER THE SKIN EVERY WEEK Adeline mancia FLUTICASONE PROPIONATE, NASAL, (Flonase Allergy Relief) 50 MCG/ACT nasal Suspension 02-21 00:00: 00 12-03 00:00 :00 Allyson mancia Cetirizine (ZYRTEC) 10 MG oral Tablet 02-21 00:00: 00 12-03 00:00 :00 Allyson mancia hydrOXYzine HCl 25 MG oral Tablet 2022-02 00:00: 00 12-03 00:00 :00 Allyson mancia Albuterol (PROVENTIL) (2.5 MG/3ML) 0.083% inhalation Inhalant Solution 2022-02 00:00: 00 12-03 00:00 :00 Allyson mancia TAKE 1 TABLET AT BEDTIME. 1-06 00:00: 00 No Dose Unknown 2021-02 2-16 00:00: 00 No Dose Unknown 2021-02 2-16 00:00: 00 No Dose Unknown 2021-02-16 00:00: 00 No Dose Unknown 2021-02-16 00:00: 00 No TAKE 1 TABLET DAILY. 2021-02 2- 00:00: 00 No TAKE 1 TABLET BY [...] 1 TABLET BY MOUTH ONCE DAILY 2021-02 00:00: 00 No TAKE 1 TABLET BY MOUTH ONCE DAILY NEEDED 2021-02 00:00: 00 No Dose Unknown 2021-02 00:00: 00 No TAKE 1 TABLET BY MOUTH ONCE DAILY 2021-02 00:00: 00 No TAKE 1 TABLET BY MOUTH TWICE DAILY 2021-02 00:00: 00 No TAKE 4 TABLETS BY [...] Last dose on Sun01/18/22 at 0600, Routine [facility] HYDROcodone -acetaminop hen (NORCO) 10-325 mg tablet 1 tablet 2021-02 16:00: 00 01-17 15:10 :00 No 1{tbl} 1 tablet, Oral, ONCE, 1 dose, On Sun01/17/22 at 1000, Routine [facility] NaCl 0.9% (NS) bolus infusion 1,000 mL 2021-02 14:45: 00 01-17 15:30 :00 No 1000mL at 999 mL/hr, 1,000 mL, IV Piggyback, ONCE, 1 dose, On Sun01/17/22 at 0845, STAT [facility] ondansetron (ZOFRAN (PF)) injection 4 mg 2021-02 13:45: 00 01-17 13:55 :00 No 4mg 4 mg, Slow IV Push, ONCE, 1 dose, On Sun01/17/22 at 0745, Routine [facility] naproxen sodium 550 mg tablet 2021-02 00:00: 00 Yes [id number] 9100 550mg Take 1 tablet by mouth 2 (two) times daily with meals. [facility] methylPREDN ISolone 4 mg tablets 2021-02 2- 00:00: 00 Yes [id number] 9100 Take by mouth SEE-INSTRU CTIONS. follow package directions [facility] methocarbam oL 500 mg tablet 2021-02 2-06 00:00: 00 01-23 05:59 :00 No [id number] 500mg Take 1 tablet by mouth 3 (three) times daily for 5 days. [facility] TAKE 1 TABLET AT BEDTIME. 2021-02 0-15 00:00: 00 No FENTanyl PF (SUBLIMAZE (PF)) injection 50 mcg 08-18 03:00: 00 08-18 03:10 :00 No 50ug 50 mcg, Slow IV Push, ONCE, 1 dose, On Sun08/17/21 at 2200, STAT [facility] NaCl 0.9% (NS) bolus infusion 1,000 mL 08-18 02:00: 00 08-18 03:10 :00 No 1000mL at 999 mL/hr, 1,000 mL, IV Infusion, ONCE, 1 dose, On Sun08/17/21 at 2100, STAT [facility] ketorolac (TORADOL) injection 15 mg 08-18 02:00: 00 08-18 02:06 :00 No 15mg 15 mg, Slow IV Push, ONCE, 1 dose, On Sun08/17/21 at 2100, EDUARDO [facility] FENTanyl PF (SUBLIMAZE (PF)) injection 50 mcg 08-18 01:30: 00 08-18 01:25 :00 No 50ug 50 mcg, Slow IV Push, ONCE, 1 dose, On Sun08/17/21 at 2030, STAT [facility] NaCl 0.9% (NS) bolus infusion 1,000 mL 08-18 01:15: 00 08-18 03:10 :00 No 1000mL at 999 mL/hr, 1,000 mL, IV Infusion, ONCE, 1 dose, On Sun08/17/21 at 2015, [facility]ARD[facility] acetaminoph en-codeine 300-30 mg tablet 2022-0 7-06 00:00: 00 08- 04:59 :00 No [id number] 1{tbl} Take 1 tablet by mouth every 6 (six) hours as needed for Pain (scale 4-6) for up to 28 days. Indication s: acute pain [facility] Dose Unknown 2022-0 5-11 00:00: 00 No Dose Unknown 2022-0 5-11 00:00: 00 No Dose Unknown 2022-0 5-10 [...] No TAKE 1 TABLET AT BEDTIME. 2022-0 2- 00:00: 00 No Dose Unknown 2-0 2- 00:00: 00 No TAKE 1 TABLET AT BEDTIME. 2021-0 2- 00:00: 00 No Dose Unknown 2021-0 2- 00:00: 00 No Dose Unknown 2020-1 0-20 00:00: 00 No Dose Unknown 2020-1 0-20 00:00: 00 No Dose Unknown 2020-0 8-04 00:00: 00 No Dose Unknown 2020-0 8-04 00:00: 00 No TAKE 1 TABLET AT BEDTIME. 2020-0 7- 00:00: 00 No sertraline 50 mg tablet 2020-0 7- 00:00: 00 No 1mg Dose Unknown 2020-0 7- 00:00: 00 No TAKE 1 TABLET AT BEDTIME. 2020-0 7- 00:00: 00 No sertraline 50 mg tablet 2020-0 7- 00:00: 00 No 1mg Dose Unknown 2020-0 7- 00:00: 00 No sertraline 50 mg tablet 1-0 6-09 00:00: 00 No 1mg mirtazapine 7.5 mg tablet 1-0 6-09 00:00: 00 No 1mg sertraline 50 mg tablet 1-0 6-09 00:00: 00 No 1mg mirtazapine 7.5 mg tablet 2020-0 6-09 00:00: 00 No 1mg Dose Unknown 2020-0 [...] 2019-1 2-03 00:00: 00 No Dose Unknown 2019-02 2-03 00:00: 00 No Dose Unknown 10-21 00:00: 00 No Dose Unknown 10-21 00:00: 00 No azithromyci n 250 mg tablet 06-10 00:00: 00 No mg azithromyci n [...] mouth every 6 (six) hours as needed. [facility] ibuprofen (MOTRIN) 600 mg tablet 03-09 00:00: 00 Yes 600mg Take 1 Tab by mouth every 6 (six) hours as needed for Pain (scale 4-6) for up to 30 doses. [facility] Immunizations Ordered Immunization Name Filled Immunization Name Date Status Comments Source Moderna COVID-19 Vaccine 2020-07-14 00:00:00 Completed Moderna COVID-19 Vaccine 2020-07-14 00:00:00 Completed Moderna COVID-19 Vaccine 2020-06-15 00:00:00 Completed Moderna COVID-19 Vaccine 2020-06-15 00:00:00 Completed Covid-19 Vaccine Moderna (Spikevax), Mrna-lnp, Bhavesh Protein, Pf Unknown Completed Adeline [facility] - External Covid-19 Vaccine Moderna (Spikevax), Mrna-lnp, Bhavesh Protein, Pf Unknown Completed [facility] - External Covid-19 Vaccine Moderna (Spikevax), Mrna-lnp, Bhavesh Protein, Pf Unknown Completed [facility] External Covid-19 Vaccine Moderna (Spikevax), Mrna-lnp, Bhavesh Protein, Pf Unknown Completed Adeline Seybold - External Covid-19 Vaccine Moderna (Spikevax), Mrna-lnp, Bhavesh Protein, Pf Unknown Completed Adeline Seybold - External Shingles IM (Shingrix) Unknown Completed Adeline Seybold - External Covid-19 Vaccine Moderna (Spikevax), Mrna-lnp, Bhavesh Protein, Pf Unknown Completed Adeline Seybold - External Shingles IM (Shingrix) Unknown Completed Adeline Seybold - External Covid-19 Vaccine Moderna (Spikevax), Mrna-lnp, Bhavesh Protein, Pf Unknown Completed Adeline Seybold - External Shingles IM (Shingrix) Unknown Completed Adeline Seybold - External Covid-19 Vaccine Moderna (Spikevax), Mrna-lnp, Bhavesh Protein, Pf Unknown Completed Adeline Milianybold - External Vital Signs Vital Name Observation Time Observation Value Comments S ource Systolic blood pressure 2023-12-12 21:12:00 110 mm[Hg] Adeline Milianybo ld - External Diastolic blood pressure 2023-12-12 21:12:00 78 mm[Hg] Adeline Milianybo ld - External Heart rate 2023-12-12 21:12:00 109 /min Austin y Seybold - External Body temperature 2023-12-12 21:12:00 36.83 April Adeline Milianybold - External Respiratory rate 2023-12-12 21:12:00 16 /min Adeline Milianybold - External Body height 2023-12-12 21:12:00 160 cm Jaquelin quinn Seybold - External Body weight 2023-12-12 21:12:00 90.719 kg Jaquelin quinn Seybold - External BMI 2023-12-12 21:12:00 35.43 kg/m2 Jaquelin quinn Seybold - External Oxygen saturation in Arterial blood by Pulse oximetry 2023-12-12 21:12:00 100 /min Adeline Milianybo ld - External Systolic blood pressure 2023-12-04 21:43:00 123 mm[Hg] Adeline ybo ld - External Diastolic blood pressure 2023-12-04 21:43:00 78 mm[Hg] Adeline Milianybo ld - External Heart rate 2023-12-04 21:43:00 78 /min Kelse y Seybold - External Body temperature 2023-12-04 21:43:00 36.33 April Adeline Seybold - External Respiratory rate 2023-12-04 21:43:00 16 /min Adeline Seybold - External Body height 2023-12-04 21:43:00 160 cm Jaquelin ey Seybold - External Body weight 2023-12-04 21:43:00 92.987 kg Jaquelin ey Seybold - External BMI 2023-12-04 21:43:00 36.31 kg/m2 Jaquelin ey Seybold - External Oxygen saturation in Arterial blood by Pulse oximetry 2023-12-04 21:43:00 100 /min Adeline Seybo ld - External Systolic blood pressure 2023-11-30 16:10:00 120 mm[Hg] Adeline Seybo ld - External Diastolic blood pressure 2023-11-30 16:10:00 86 mm[Hg] Adeline Seybo ld - External Heart rate 2023-11-30 16:10:00 103 /min Kelse y Seybold - External Body weight 2023-11-30 16:10:00 90.084 kg Jaquelin ey Seybold - External BMI 2023-11-30 16:10:00 35.18 kg/m2 Jaquelin ey Seybold - External Systolic blood pressure 2023-10-12 15:08:00 112 mm[Hg] Adeline Seybo ld - External Diastolic blood pressure 2023-10-12 15:08:00 78 mm[Hg] Adeline Seybo ld - External Heart rate 2023-10-12 15:08:00 [...] External Heart rate 2023-08-03 20:40:00 85 /min Coryse y Seybold - External Body temperature 2023-08-03 [...] blood pressure 2023-07-13 19:36:00 87 mm[Hg] Adeline Milianybo ld - External Heart rate 2023-07-13 19:36:00 80 /min Coryse y Seybold - External Body weight 2023-07-13 19:36:00 90.719 kg Jaquelin ey Seybold - External BMI 2023-07-13 19:36:00 35.43 kg/m2 Jaquelin ey Seybold - External Systolic blood pressure 2023-05-31 00:00:00 111 mm[Hg] General acute hospital Diastolic blood pressure 2023-05-31 00:00:00 81 mm[Hg] General acute hospital Heart rate 2023-05-31 00:00:00 89 /min [facility] Body temperature 2023-05-31 00:00:00 37.22 April [facility] Respiratory rate 2023-05-31 00:00:00 21 /min [facility] Oxygen saturation in Arterial blood by Pulse oximetry 2023-05-31 00:00:00 96 /min [facility] acute hospital Body height 2023-05-30 22:49:00 160 cm [facility] Body weight 2023-05-30 22:49:00 87.998 kg [facility] BMI 2023-05-30 22:49:00 34.37 kg/m2 [facility] Systolic blood pressure 2023-05-21 20:30:00 108 mm[Hg] [...] by Pulse oximetry 2023-05-21 20:30:00 98 /min Adleine Seybo ld - External Systolic blood pressure 2023-05-11 [...] blood pressure 2023-04-06 16:24:00 107 mm[Hg] Adeline Milianybo ld - External Diastolic blood pressure 2023-04-06 16:24:00 81 mm[Hg] Adeline Garciao ld - External Heart rate 2023-04-06 16:24:00 108 /min Austin y Seybold - External Respiratory rate 2023-04-06 16:24:00 18 /min Adeline Milianybold - External Body height 2023-04-06 16:24:00 160 cm Jaquelin ey Seybold - External Body weight 2023-04-06 16:24:00 87.816 kg Jaquelin ey Seybold - External BMI 2023-04-06 16:24:00 34.29 kg/m2 Jaquelin ey Seybold - External Systolic blood pressure 2022-01-17 15:00:00 152 mm[Hg] General acute hospital Diastolic blood pressure 2022-01-17 15:00:00 97 mm[Hg] General acute hospital Heart rate 2022-01-17 15:00:00 85 /min [facility] Respiratory rate 2022-01-17 15:00:00 14 /min [facility] Oxygen saturation in Arterial blood by Pulse oximetry 2022-01-17 15:00:00 98 /min General acute hospital Body temperature 2022-01-17 13:31:00 36.72 April [facility] Body weight 2022-01-17 13:31:00 90.719 kg [facility] BMI 2022-01-17 13:31:00 35.43 kg/m2 [facility] Heart rate 2021-08-18 03:05:00 93 /min [facility] Respiratory rate 2021-08-18 03:05:00 18 /min [facility] Oxygen saturation in Arterial blood by Pulse oximetry 2021-08-18 03:05:00 94 /min [facility] acute hospital Systolic blood pressure 2021-08-18 03:05:00 103 mm[Hg] General acute hospital Diastolic blood pressure 2021-08-18 03:05:00 67 mm[Hg] General acute hospital Body temperature 2021-08-17 23:31:00 36.5 April [facility] Body height 2021-08-17 23:31:00 160 cm [facility] Body weight 2021-08-17 23:31:00 84.823 kg [facility] BMI 2021-08-17 23:31:00 33.13 kg/m2 [facility] BP Systolic 2022-02-16 14:51:00 117 mm[Hg] BP [...] PELVIS WO CONTRAST 2022-01-17 13:53:00 Carmen Magallanes [facility] POCT TEST 2022-01-17 13:47:00 Shabnam Magallanes [facility] COMP. METABOLIC PANEL ([id number]) 2022-01-17 13:43:00 Singer Carmen [facility] CBC WITH DIFF 2022-01-17 13:43:00 Singer [facility] URINALYSIS 2022-01-17 13:39:00 Singer [facility] CONSENT/REFUSAL FOR DIAGNOSIS AND TREATMENT 2022-01-17 13:23:09 Doctor Unassigned, [place] [facility] URINALYSIS 2021-08-18 01:25:00 Kristy Strickland [facility] XR CHEST 1 VW 2021-08-18 00:48:00 Kristy Strickland [facility] EKG-12 LEAD 2021-08-18 00:43[facility] 2021-08-18 00:27:00 Jessica Strickland [facility] COVID-19 (ID NOW RAPID TESTING) 2021-08-17 23:55:00 Kristy Strickland [facility] TROPONIN I 2021-08-17 23:53:00 Kristy Strickland [facility] COMP. METABOLIC PANEL ([id number]) 2021-08-17 23:53:00 Kristy Strickland [facility] CBC WITH DIFF 2021-08-17 23:53:00 Kristy Strickland [facility] PROTHROMBIN TIME / INR 2021-08-17 23:53:00 Ryanne Strickland [facility] N-TERMINAL PRO-BNP 2021-08-17 23:53:00 Manju Strickland [facility] NOTICE OF PRIVACY PRACTICES 2021-08-17 23:42:49 Doctor Unassigned, [place] [facility] CONSENT/REFUSAL FOR DIAGNOSIS AND TREATMENT 2021-08-17 23:26:34 Doctor Unassigned, [place] [facility] Plan of Care Planned Activity Planned Date Details Comments Source Goal Plan of Care Note [code = 19948-4] Goal Plan of Care Note [code = 62264-8] Goal Plan of Care Note [code = 80346-7] Goal Plan of Care Note [code = 81181-6] Goal Plan of Care Note [code = 42846-2] Goal Plan of Care Note [code = 76862-9] Goal Plan of Care Note [code = 85787-9] Goal Plan of Care Note [code = 55262-7] Goal Plan of Care Note [code = 35123-2] Goal Plan of Care Note [code = 97613-8] Goal Plan of Care Note [code = 94398-3] Goal Plan of Care Note [code = 97490-1] Goal Plan of Care Note [code = 60614-7] Goal Plan of Care Note [code = 27853-0] Goal Plan of Care Note [code = 60186-8] Goal Plan of Care Note [code = 99076-6] Goal Plan of Care Note [code = 85720-8] Goal Plan of Care Note [code = 19756-8] Goal Plan of Care Note [code = 98506-9] Goal Plan of Care Note [code = 10784-4] Goal Plan of Care Note [code = 84984-6] Goal Plan of Care Note [code = 91949-3] Goal Plan of Care Note [code = 64763-6] Goal Plan of Care Note [code = 45925-7] Goal Plan of Care Note [code = 97452-5] Goal Plan of Care Note [code = 63227-4] Goal Plan of Care Note [code = 34755-5] Goal Plan of Care Note [code = 65348-5] Goal Plan of Care Note [code = 82951-8] Goal Plan of Care Note [code = 98949-9] Goal Plan of Care Note [code = 78571-0] Goal Plan of Care Note [code = 56558-5] Goal Plan of Care Note [code = 32855-4] Goal Plan of Care Note [code = 03122-5] Goal Plan of Care Note [code = 16793-7] Goal Plan of Care Note [code = 53497-9] Goal Plan of Care Note [code = 91627-6] Goal Plan of Care Note [code = 19267-3] Goal Plan of Care Note [code = 28364-3] Goal Plan of Care Note [code = 69869-4] Goal Plan of Care Note [code = 77267-2] Goal Plan of Care Note [code = 84963-4] Goal Plan of Care Note [code = 60255-7] Goal Plan of Care Note [code = 03425-4] Goal Plan of Care Note [code = 55979-3] Goal Plan of Care Note [code = 63719-7] Goal Plan of Care Note [code = 81735-5] Goal Plan of Care Note [code = 41625-0] Goal Plan of Care Note [code = 29193-1] Goal Plan of Care Note [code = 32102-2] Goal Plan of Care Note [code = 30035-0] Goal Plan of Care Note [code = 75835-5] Goal Plan of Care Note [code = 22739-3] Goal Plan of Care Note [code = 76871-2] Encounters Start Date/Time End Date/Time Encounter Type Admission Type Attending [facility] Care Facility Care Department Encounter ID Source 2024-03-13 16:00:00 2024-03-13 16:00:00 Outpatient KODAK SNYDER [id number] [facility] 2024-01-24 15:00:00 2024-01-24 15:00:00 Outpatient KODKA SNYDER [id number] [facility] 2024-01-18 11:45:00 2024-01-18 11:45:00 Outpatient ROWAN GOMEZ [id number] [facility] 2023-12-19 15:45:00 2023-12-19 15:45:00 Outpatient WHITNEY CASTILLO [id number] [facility] 2023-12-17 00:00:00 2023-12-17 00:00:00 Outpatient KODAK SNYDER [id number] [facility] 2023-12-14 10:00:00 2023-12-14 10:00:00 Outpatient GOMEZROWAN ADELINE [id number] [facility] 2023-12-12 16:30:00 2023-12-12 16:30:00 Outpatient PREZAS, KODAK LR [id number] [facility] 2023-12-11 00:00:00 2023-12-11 00:00:00 Outpatient PREZASKODAK [id number] Adeline Sey[facility] 2023-12-10 15:30:00 2023-12-10 15:30:00 Outpatient ANNAWHITNEY [id number] [facility] 2023-12-10 00:00:00 2023-12-10 00:00:00 Outpatient PREZAS, KODAK LR [id number] [facility] 2023-12-08 00:00:00 2023-12-08 00:00:00 Outpatient PREZAS, KODAK LR [id number] [facility] 2023-12-06 08:05:00 2023-12-06 08:05:00 Outpatient PALOMO FIELDSSEY [id number] [facility] 2023-12-04 16:30:00 2023-12-04 16:30:00 Outpatient PREZAS, KODAK LR [id number] [facility] 2023-11-30 11:15:00 2023-11-30 11:15:00 Outpatient GOMEZROWAN Espinal ADELINE [id number] [facility] Sey[facility] 2023-11-27 00:00:00 2023-11-27 00:00:00 Outpatient PREZASKODAK ADELINE [id number] [facility] 2023-11-22 00:00:00 2023-11-22 00:00:00 Outpatient GOMEZROWAN ADELINE LR [id number] [facility] 2023-11-20 00:00:00 2023-11-20 00:00:00 Outpatient GOMEZROWAN Espinal ADELINE LR [id number] [facility] Seybold 2023-11-16 00:00:00 2023-11-16 00:00:00 Outpatient GOMEZ, ROWAN ADELINE LR [id number] [facility] 2023-[facility]-15 00:00:00 2023-11-15 00:00:00 Outpatient GOMEZ, ROWAN ADELINE LR [id number] [facility] 2023-10-12 10:00:00 2023-10-12 10:00:00 Outpatient GOMEZ, ROWAN LR [id number] [facility] 2023-10-08 00:00:00 2023-10-08 00:00:00 Outpatient GOMEZ, ROWAN LR [id number] [facility] 2023-09-27 00:00:00 2023-09-27 00:00:00 Outpatient GOMEZ, [facility]AN LR [id number] [facility]23-[facility]-04 00:00:00 2023-09-04 00:00:00 Outpatient ANTHONY, VIKTOR LR [id number] [facility] 2023-08-31 15:30:00 2023-08-31 15:30:00 Outpatient TMS994 ADELINE LR [id number] [facility] 2023-08-31 15:00:00 2023-08-31 15:00:00 Outpatient GOMEZ, ROWAN LR [id number] [facility] 2023-08-24 10:30:00 2023-08-24 10:30:00 Outpatient GOMEZ, ROWAN LR [id number] [facility] 2023-08-19 00:00:00 2023-08-19 00:00:00 Outpatient GOMEZ, ROWAN LR [id number] [facility] 2023-08-16 00:00:00 2023-08-16 00:00:00 Outpatient GOMEZ, ROWAN LR [id number] [facility] 2023-08-03 16:00:00 2023-08-03 16:00:00 Outpatient YAEL WARREN [id number] [facility] 2023-07-13 15:20:00 2023-07-13 15:20:00 Outpatient LAB53 ADELINE LR [id number] [facility] 2023-07-13 14:45:00 2023-07-13 14:45:00 Outpatient GOMEZROWAN Espinal ADELINE LR [id number] [facility] 2023-07-13 10:30:00 2023-07-13 10:30:00 Outpatient GOMEZ, ROWAN LR [id number] [facility] 2023-07-07 00:00:00 2023-07-07 00:00:00 Outpatient GOMEZ, ROWAN ADELINE LR [id number] [facility] 2023-06-18 00:00:00 2023-06-18 00:00:00 Outpatient ANTHONYVIKTOR [id number] [facility] 2023-06-07 00:00:00 2023-06-07 00:00:00 Outpatient PATRICIA ROWAN LR [id number] [facility] 2023-05-30 17:50:00 2023-05-30 19:43:00 Emergency Ervin Tamar Diana [facility] [id number] 350.1.13.10 [id number] [id number] [facility] 2023-05-30 17:50:00 2023-05-30 19:43:00 Emergency X ERVIN, K [facility] ERT [id number] [facility] 2023-05-21 15:30:00 2023-05-21 15:30:00 Outpatient ANTHONY VIKTOR LR [id number] [facility] 2023-05-14 00:00:00 2023-05-14 00:00:00 Outpatient PATRICIA ROWAN LR [id number] [facility] 2023-05-11 11:25:00 2023-05-11 11:25:00 Outpatient LAB53 ADELINE LR [id number] [facility] 2023-05-11 10:45:00 2023-05-11 10:45:00 Outpatient ROWAN GOMEZ [id number] 2023-05-04 11:00:00 2023-05-04 11:00:00 Outpatient ROWAN GOMEZ [id number] [facility] 2023-05-04 10:00:00 2023-05-04 10:00:00 Outpatient ROWAN GOMEZ [id number] [facility] 2023-04-20 12:15:00 2023-04-20 12:15:00 Outpatient WHITNEY CASTILLO [id number] [facility] 2023-04-06 11:15:00 2023-04-06 11:15:00 Outpatient ADITI LR [id number] [facility] 2023-04-06 10:30:00 2023-04-06 10:30:00 Outpatient ROWAN GOMEZ [id number] [facility] 2023-02-21 16:49:21 2023-02-21 16:49:21 Outpatient SFA SFA [id number] Matias Cerda 2023-02-01 13:58:18 2023-02-01 13:58:18 Outpatient SFA SFA [id number] 122 Matias Cerda 2023-01-25 16:07:59 2023-01-25 16:07:59 Outpatient SFA SFA [id number] Matias Cerda 2023-01-22 14:22:05 2023-01-22 14:22:05 Outpatient SFA SFA [id number] 121 Matias Matias Prashant 2022-10-17 16:37:46 2022-10-17 16:37:46 Outpatient SFA SFA [id number] Matias Matias Prashant 2022-08-18 08:32:51 2022-08-18 08:32:51 Outpatient SFA SFA [id number] Matias Matias Prashant 2022-02-22 15:12:18 2022-02-22 15:12:18 Outpatient SFA SFA [id number] 0111 Matias Cerda 2022-02-16 14:43:01 2022-02-16 14:43:01 Outpatient SFA SFA [id number] Matias Matias Prashant 2022-02-16 00:00:00 2022-02-16 00:00:00 Outpatient Visit [id number] 2022-02-14 12:00:15 2022-02-14 12:00:15 Outpatient SFA [facility] [id number] Matias Cerda 2022-02-13 00:00:00 2022-02-13 00:00:00 Outpatient Visit [id number] 2921-12-06 07:33:00 2022-01-17 09:49:00 Emergency CARMEN GÓMEZ [facility] ERT [id number] [facility] 2022-01-17 07:33:00 2022-01-17 09:49:00 Emergency Carmen Magallanes [facility] 1.2.840.114 350.1.13.10 4.2.7.2.686 [id number] [facility] 2022-01-17 00:00:00 2022-01-17 00:00:00 Orders Only Doctor Unassigned, [place] [facility] 1.2.840.114 350.1.13.10 [id number] [id number] [facility] 2021-08-17 18:40:00 2021-08-17 23:01:00 Emergency Kristy Strickland William B [facility] 1.2.840.114 350.1.13.10 4.2.7.2.686 [id number] [facility] 2021-08-17 18:40:00 2021-08-17 23:01:00 Emergency OLIVIA CELESTE [facility] ERT [id number] [facility] Results Test Description Test Time Test Comments Results Result Co mments Source [facility] (14888)2022-01-17 14:12:06* Test Item Value Reference Range Interpretation Comme nts NA (test code = 2069803677) 140 mmol/L 135-145 K (test code = 7293359878) 4.1 mmol/L 3.5-5.0 CL (test code = 0343638972) 104 mmol/L 98-108 CO2 TOTAL (test code = 6712809015) 26 mmol/L 23-31 AGAP (test code = 6562408177) 2-16 BUN (test code = 9673298534) 23 mg/dL 7-23 GLUCOSE (test code = 7780977298) 125 mg/dL 70-110 H CREATININE (test code = 7387765475) 0.57 mg/dL 0.50-1.04 TOTAL BILI (test code = 4676498550) 0.9 mg/dL 0.1-1.1 CALCIUM (test code = 0272678848) 9.9 mg/dL 8.6-10.6 T PROTEIN (test code = 5935337846) 7.4 g/dL 6.3-8.2 ALBUMIN (test code = 7512422549) 4.4 g/dL 3.5-5.0 ALK PHOS (test code = 8516171784) 122 U/L 34-122 ALTv (test code = 1742-6) 68 U/L 5-35 H AST(SGOT) (test code = 0193383502) 44 U/L 13-40 H eGFR (test code = 7828883279) mL/min/1.73m2 JOSÉ (test code = JOSÉ) Association [...] imaging tests). Lab Interpretation (test code = 16371-8) Abnormal [facility] [id number] 13:47:00* Test Item Value Reference Range Interpretation Comme [facility] POCT PREG (test code = 1605) negative On board controls acceptable with C Line (test code = 3574) present POCT PREG LOT # (test code = 3575) [id number] POCT PREG TEST DATE ( test code = 3576) 2023-05-13 Lab Interpretation (test cod e = 71646-0) Normal [facility] System[facility] / [id number] 00:32:31* Test Item Value Reference Range Interpretation Comme [facility] PROTIME PATIENT (test code = 5964-2) See_Comment [Automated [employer]] The system which generated this result transmitted reference range: 12.0 - 14.7 Seconds. The reference range was not used to interpret this result as normal/abnormal. INR (test code = 6301-6) Normal INR <1.1; Warfarin Therapeutic range 2.0 to 3.0 or 2.5 to 3.5, depending upon the indications. Lab Interpretation (test code = 44929-2) Normal [facility] SystemTR[facility] [id number] 00:27:33* Test Item Value Reference Range Interpretation Comments TROPONIN I (test code = 3846028902) 0.001 ng/mL See_Comment [Automated message] The system [...] of biotin. Lab Interpretation (test code = 35681-7) Normal [facility] SystemN-[facility]MINAL [id number] 00:24:31* Test Item Value Reference Range Interpretation Comme nts NT-proBNP (test code = 5672874016) 230 pg/mL See_Comment H [Automated message] The system which generated this result transmitted reference range: <=125. The reference range was not used to interpret this result as normal/abnormal. JOSÉ (test code = JOSÉ) Biotin has been reported to cause a negative bias, interpret results relative to patient's use of biotin. Lab Interpretation (test code = 23855-8) Abnormal [facility] System[facility] METABOLIC PANEL (26939)2021-08-18 00:15:50* Test Item Value Reference Range Interpretation Comme nts NA (test code = 7057368794) 137 mmol/L 135-145 K (test code = 2026633986) 4.1 mmol/L 3.5-5.0 CL (test code = 5348091286) 100 mmol/L 98-108 CO2 TOTAL (test code = 0234534910) 26 mmol/L 23-31 AGAP (test code = 5109759447) 2-16 BUN (test code = 4805008629) 20 mg/dL 7-23 GLUCOSE (test code = 3261966550) 110 mg/dL 70-110 CREATININE (test code = 3866584334) 0.69 mg/dL 0.50-1.04 TOTAL BILI (test code = 2668520701) 0.9 mg/dL 0.1-1.1 CALCIUM (test code = 8252237735) 9.6 mg/dL 8.6-10.6 T PROTEIN (test code = 1080706168) 7.1 g/dL 6.3-8.2 ALBUMIN (test code = 7654371631) 4.0 g/dL 3.5-5.0 ALK PHOS (test code = 0945346409) 141 U/L 34-122 H ALTv (test code = 1742-6) 30 U/L 5-35 AST(SGOT) (test code = 2714109336) 29 U/L 13-40 eGFR (test code = 0927319995) mL/min/1.73m2 JOSÉ (test code = JOSÉ) Association [...] imaging tests). Lab Interpretation (test code = 29818-2) Abnormal [facility] WITH [id number] 00:13:49* Test Item Value Reference Range Interpretation [...] 32.9 g/dL 31.6-35.1 RDW-SD (test code = 17502-2) 47.5 fL 39.0-49.9 RDW-CV (test code = 788-0) 14.7 % 12.0-15.5 PLT (test code = 777-3) See_Comment H [Automated message] The system which generated this result transmitted reference range: 166 - 358 10*3/?L. The reference range was not used to interpret this result as normal/abnormal. MPV (test code = 41587-0) 9.6 fL 9.5-12.9 NRBC/100 WBC (test code = 2536552228) See_Comment [Automated message] The system which generated this result transmitted reference range: 0.0 - 10.0 /100 WBCs. The reference range was not used to interpret this result as normal/abnormal. NRBC x10^3 (test code = 4338192098) <0.01 See_Comment [Automated message] The system which generated this result transmitted reference range: 10*3/?L. The reference range was not used to interpret this result as normal/abnormal. GRAN MAT (NEUT) % (test code = 770-8) 65.3 % IMM GRAN % (test code = 2289152785) 0.70 % LYMPH % (test code = 736-9) 25.9 % MONO % (test code = 5905-5) 7.2 % EOS % (test code = 713-8) 0.6 % BASO % (test code = 706-2) 0.3 % GRAN MAT x10^3(ANC) (test code = 9046894951) 11.05 10*3/uL 1.88-7.09 H IMM GRAN x10^3 (test code = 9760530585) 0.12 10*3/uL 0.00-0.06 H LYMPH x10^3 (test code = 731-0) 4.37 10*3/uL 1.32-3.29 H MONO x10^3 (test code = 742-7) 1.21 10*3/uL 0.33-0.92 H EOS x10^3 (test code = 711-2) 0.10 10*3/uL 0.03-0.39 BASO x10^3 (test code = 704-7) 0.05 10*3/uL 0.01-0.07 Lab Interpretation (test code = 75418-1) Abnormal [facility] SystemARTHRITIS [id number] 07:00:32* Test Item Value Reference Range Interpretation [...] Assay (IFA) with a titering system using [id number] cells (Hep2 cells transfected with SS-A/Ro). COMPREHENSIVE METABOLIC [id number] 01:17:07* Test Item Value Reference Range Interpretation Comme nts GLUCOSE (test code = 2217) 108 MG/DL 70-99 H BUN (test code = 2208) 19 MG/DL 6-20 CREATININE (test code = 2214) 0.74 MG/DL 0.60-1.30 eGFR (2020 CKD-EPI) (test code = 24484) 96 ML/MIN/1.73 >60 CALC BUN/CREAT (test code = 2235) 26 RATIO 6-28 SODIUM (test code = 2231) 142 MEQ/L 133-146 POTASSIUM (test code = 2228) 3.7 MEQ/L 3.5-5.4 CHLORIDE (test code = 2215) 102 MEQ/L 95-107 CARBON DIOXIDE (test code = 2206) 22 MEQ/L 19-31 CALCIUM (test code = 2209) 10.1 MG/DL 8.5-10.5 PROTEIN, TOTAL (test code = 2228) 7.5 G/DL 6.1-8.3 ALBUMIN (test code = 220) 4.4 G/DL 3.5-5.2 CALC GLOBULIN (test code = 2240) 3.1 G/DL 1.9-3.7 CALC A/G RATIO (test code = 2233) 1.4 RATIO 1.0-2.6 BILIRUBIN, TOTAL (test code = 2206) 0.2 MG/DL See_Comment [Automated me ssage] The system which generated this result transmitted reference range: <=1.2. The reference range was not used to interpret this result as normal/abnormal. ALKALINE PHOSPHATASE (test code = 2203) 125 U/L 40-133 AST (test code = 2218) 23 U/L 9-40 ALT (test code = 2219) 27 U/L 5-40 C-REACTIVE [id number] 01:17:00* Test Item Value Reference Range Interpretation Comme nts C-REACTIVE PROTEIN (test code = 3513) 0.7 MG/DL <0.5 H UNLESS OTHERW ISE INDICATED, ALL TESTING PERFORMED [facility] [address] [place] [address] CONTINUOUS MINING OPERATOR: LOCO VARMA M.D. CLIA NUMBER [id number] [place]. [id number] ARTHRITIS [id number] 00:00:00* Test Item Value Reference Range Interpretation Comme nts RHEUMATOID FACTOR, QUANT (te st code = 3502) 209 IU/ML URIC ACID (test code = 2233) 4.1 MG/DL SEDIMENTATION RATE (test cod e = 1017) 24 MM/HOUR ANTI-NUCLEAR ANTIBODIES (kulwant t code = 3506) NEGATIVE COMPREHENSIVE METABOLIC [id number] 00:00:00* Test Item Value Reference Range Interpretation Comme nts GLUCOSE (test code = 2217) 108 MG/DL BUN (test code = 2208) 19 MG/DL CREATININE (test code = 2214) 0.74 MG/DL eGFR (2020 CKD-EPI) (test co de = 70036) 96 ML/MIN/1.73 CALC BUN/CREAT (test code = [...] (test code = 2219) 27 U/L C-REACTIVE [id number] 00:00:00* Test Item Value Reference Range Interpretation Comme nts C-REACTIVE PROTEIN (test cod e = 3513) 0.7 MG/DL ARTHRITIS [id number] 00:00:00* Test Item Value Reference Range Interpretation Comme nts RHEUMATOID FACTOR, QUANT (te st code = 3502) 209 IU/ML URIC ACID (test code = 2233) 4.1 MG/DL SEDIMENTATION RATE (test cod e = 1017) 24 MM/HOUR ANTI-NUCLEAR ANTIBODIES (kulwant t code = 3506) NEGATIVE COMPREHENSIVE METABOLIC [id number] 00:00:00* Test Item Value Reference Range Interpretation Comme nts GLUCOSE (test code = 2217) 108 MG/DL BUN (test code = 2208) 19 MG/DL CREATININE (test code = 2214) 0.74 MG/DL eGFR (2020 CKD-EPI) (test co de = 92419) 96 ML/MIN/1.73 CALC BUN/CREAT (test code = [...] (test code = 2219) 27 U/L C-REACTIVE [id number] 00:00:00* Test Item Value Reference Range Interpretation Comme nts C-REACTIVE PROTEIN (test cod e = 3513) 0.7 MG/DL CBC W/AUTO DIFF WITH [id number] 04:03:17* Test Item Value Reference Range Interpretation [...] 0.00-0.20 ABS NUCLEATED RBCS (test code = 08283) 0.00 K/UL 0.00-0.11 CBC W/AUTO [id number] 00:00:00* Test Item Value Reference Range Interpretation [...] ABS NUCLEATED RBCS (test cod e = 00830) 0.00 K/UL CBC W/AUTO [id number] 00:00:00* Test Item Value Reference Range Interpretation [...] ABS NUCLEATED RBCS (test cod e = 16155) 0.00 K/UL SARS-CoV-2 (COVID-19), RT-PCR/[id number] 14:21:22* Test Item Value Reference Range Interpretation Comments SARS-CoV-2 INTERPRETATION (test code = 13715) POSITIVE SEE NOTE A SARS-CoV-2 R NA DETECTEDPositive results are indicative of the presence of SARS-CoV-2 RNA;clinical correlation with patient history and other diagnosticinformation is necessary to determine patient infection status.Positive results do not rule out bacterial infection or co-infectionwith other viruses. Positive and negative predictive values oftesting are highly dependent on prevalence. SOURCE (test code = 50996) NOT SPECIFIED Note: Methodolog y is Ian Summer Real-Time RT-PCR. The expected result or reference range is NEGATIVE (Not Detected). For more information regarding COVID-19 testing to include clinicalinformation, methodology detail, intended use, FDA authorization andrecommended fact sheets for patients or healthcare providers, see [employer] Announcement: SARS-CoV-2 (COVID-19) by NAAT at URL below (note,fact sheets are provided by method given in report:[email or web address] ommunications/ Alternatively, see downloadable PDF fact sheet at:[email or web address] [email or web address]-[email or web address]-PCR UNLESS OTHERWISE INDICATED, ALL TESTING PERFORMED [facility] [place], [facility]. [address] [place] [address] CONTINUOUS MINING OPERATOR: LOCO VARMA M.D. CLIA NUMBER [id number] [facility]. [id number] SARS-CoV-2 (COVID-19) by RT-PCR (HIGH RISK)2021-03-04 00:00:00* Test Item Value Reference Range Interpretation Comme nts SARS-CoV-2 INTERPRETATION (t est code = 62969) POSITIVE SOURCE (test code = 97470) NOT SPECIFIED SARS-CoV-2 (COVID-19) by RT-PCR (HIGH RISK)2021-03-04 00:00:00* Test Item Value Reference Range Interpretation Comme nts SARS-CoV-2 INTERPRETATION (t est code = 37044) POSITIVE SOURCE (test code = 31300) NOT SPECIFIED SCR MAMM BILATERAL CHITO CAD [id number] 08:11:19 Name: , Emelina Maurice : 1965 Sex: F - SCR MAMM BILATERAL CHITO CAD DIGITALBILATERAL DIGITAL SCREENING MAMMOGRAM 3D/2D WITH CAD: 06/11/2020LINICAL: Asymptomatic. Digital breast tomosynthesis was performed in addition to routine CC and MLO views. Current mammographic images were evaluated by [employer] CAD (computer-aided detection) software. Comparison is made to exam dated 10/01/2007 mammogram - [facility]. There are scattered fibroglandular tissues in both breasts. There are benign calcifications in both breasts. No suspicious mass, architectural distortion, malignant type calcification, or lymph node abnormality detected. IMPRESSION: BENIGNThere is no mammographic evidence of malignancy. Resume annual screening mammography in one year. Gary Cam M.D. et/penrad:06/24/2020 08:11:19 Chief Digital Media Officer: Leonor Hubbard MM, [facility] Mammographyletter sent: BIRADS 1-2 Normal Mammogram BI-RADS: 2 BenignVAGINAL PATHOGENS DNA [id number] 00:00:00* Test Item Value Reference Range Interpretation Comme nts FLETCHER SPECIES (test code = 03583) NEGATIVE G. VAGINALIS (test code = 11020) POSITIVE T. VAGINALIS (test code = 16637) NEGATIVE VAGINAL PATHOGENS DNA [id number] 00:00:00* Test Item Value Reference Range Interpretation Comme nts FLETCHER SPECIES (test code = 89730) NEGATIVE G. VAGINALIS (test code = 49292) POSITIVE T. VAGINALIS (test code = 46143) NEGATIVE GC AND CHLAMYDIA AMPLIFIED, [id number] 00:00:00* Test Item Value Reference Range Interpretation Comme nts GONORRHEA, TMA (test code = 05542) NEGATIVE CHLAMYDIA, TMA (test code = 20927) NEGATIVE HIV AB/AG COMBO RFLX [id number] 00:00:00* Test Item Value Reference Range Interpretation Comme nts HIV 1/2 4TH GEN, RFLX CONF ( test code = 3514) NON-REACTIVE RPR REFLEX TO [id number] 00:00:00* Test Item Value Reference Range Interpretation Comme nts RPR (test code = 84148) NON-REACTIVE RPR TITER (test code = 3500) NOT INDIC. TITER PAP TEST, THINPREP, [id number] 00:00:00* Test Item Value Reference Range Interpretation Comme nts SOURCE: (test code = 8001) Cervical/Endocervical SLIDES: (test code = 8011) 1 LMP: (test code = 8021) SEE NOTE SPECIMEN ADEQUACY: (test code = 79501) (NOTE) INTERPRETATION: (test code = 10713) NILM/NO EPITH. ABNORMALITY;SEE BELOW OTHER COMMENTS: (test code = 8081) (NOTE) STATOR CONNECTOR: (test code = 8101) ANSHUL JHAVERI(ASCP)IAC LOCATION: (test code = 31843) (NOTE) CPT: (test code = 8140) (NOTE) HPV HIGH RISK WITH GENOTYPE, [id number] 00:00:00* Test Item Value Reference Range Interpretation Comme nts HPV HIGH RISK INTERP (test c ode = 01203) NEGATIVE HPV 16 (test code = 16576) NEGATIVE HPV 18 (test code = 64952) NEGATIVE HPV, HR, OTHER GENOTYPES (te st code = 91990) NEGATIVE HIV AB/AG COMBO RFLX [id number] 00:00:00* Test Item Value Reference Range Interpretation Comme nts HIV 1/2 4TH GEN, RFLX CONF ( test code = 3514) NON-REACTIVE GC AND CHLAMYDIA AMPLIFIED, [id number] 00:00:00* Test Item Value Reference Range Interpretation Comme nts GONORRHEA, TMA (test code = 14614) NEGATIVE CHLAMYDIA, TMA (test code = 01619) NEGATIVE RPR REFLEX TO [id number] 00:00:00* Test Item Value Reference Range Interpretation Comme nts RPR (test code = 22141) NON-REACTIVE RPR TITER (test code = 3500) NOT INDIC. TITER PAP TEST, THINPREP, [id number] 00:00:00* Test Item Value Reference Range Interpretation Comme nts SOURCE: (test code = 8001) Cervical/Endocervical SLIDES: (test code = 8011) 1 LMP: (test code = 8021) SEE NOTE SPECIMEN ADEQUACY: (test code = 77135) (NOTE) INTERPRETATION: (test code = 54692) NILM/NO EPITH. ABNORMALITY;SEE BELOW OTHER COMMENTS: (test code = 8081) (NOTE) STATOR CONNECTOR: (test code = 8101) ANSHUL JHAVERI(ASCP)IAC LOCATION: (test code = 48869) (NOTE) CPT: (test code = 8140) (NOTE) HPV HIGH RISK WITH GENOTYPE, [id number] 00:00:00* Test Item Value Reference Range Interpretation Comme nts HPV HIGH RISK INTERP (test c ode = 51136) NEGATIVE HPV 16 (test code = 70268) NEGATIVE HPV 18 (test code = 51259) NEGATIVE HPV, HR, OTHER GENOTYPES (te st code = 73254) NEGATIVE SARS-CoV-2 (COVID-19) by RT-PCR (HIGH RISK)2020-01-16 00:00:00* Test Item Value Reference Range Interpretation Comme nts SARS-CoV-2 INTERPRETATION (t est code = 97123) NEGATIVE SOURCE (test code = 81719) NOT SPECIFIED SARS-CoV-2 (COVID-19) by RT-PCR (HIGH RISK)2020-01-16 00:00:00* Test Item Value Reference Range Interpretation Comme nts SARS-CoV-2 INTERPRETATION (t est code = 40531) NEGATIVE SOURCE (test code = 25175) NOT SPECIFIED SARS-CoV-2 (COVID-19) by RT-PCR (HIGH RISK)2019-12-22 00:00:00* Test Item Value Reference Range Interpretation Comme nts SARS-CoV-2 INTERPRETATION (test code = 41026) Negative SOURCE (test code = 12025) NASOPHARYNGEA L_SWAB _IN_VTM__UTM SARS-CoV-2 (COVID-19) by RT-PCR (HIGH RISK)2019-12-22 00:00:00* Test Item Value Reference Range Interpretation Comme nts SARS-CoV-2 INTERPRETATION (test code = 24779) Negative SOURCE (test code = 52068) NASOPHARYNGEA L_SWAB _IN_VTM__UTM [id number] 00:00:00* Test Item Value Reference Range Interpretation Comme nts TSH, THIRD GENERATION (test code = 2821) 0.584 UIU/ML CBC W/AUTO [id number] 00:00:00* Test Item Value Reference Range Interpretation [...] (test code = 1015) 328 K/UL HEMOGLOBIN [id number] 00:00:00* Test Item Value Reference Range Interpretation Comme nts HEMOGLOBIN A1c (test code = 65175) 6.0 % LIPID [id number] 00:00:00* Test Item Value Reference Range Interpretation Comme nts CHOLESTEROL (test code = 2210) 202 MG/DL TRIGLYCERIDES (test code = 2232) 118 MG/DL HDL CHOLESTEROL (test code = 2220) 61 MG/DL CALC LDL CHOL (test code = 2237) 118 MG/DL RISK RATIO LDL/HDL (test cod e = 2238) 1.93 RATIO COMPREHENSIVE METABOLIC [id number] 00:00:00* Test Item Value Reference Range Interpretation Comme nts GLUCOSE (test code = 2217) 80 MG/DL BUN (test code = 2208) 22 MG/DL CREATININE (test code = 2214) 0.70 MG/DL eGFR AMER. (test cod e = 65895) 115 ML/MIN/1.73 eGFR NON- AMER. (test code = 20684) 99 ML/MIN/1.73 CALC BUN/CREAT (test code = [...] ALT (test code = 2219) 52 U/L [id number] 00:00:00* Test Item Value Reference Range Interpretation Comme nts TSH, THIRD GENERATION (test code = 2821) 0.584 UIU/ML CBC W/AUTO [id number] 00:00:00* Test Item Value Reference Range Interpretation [...] (test code = 1015) 328 K/UL HEMOGLOBIN [id number] 00:00:00* Test Item Value Reference Range Interpretation Comme nts HEMOGLOBIN A1c (test code = 45214) 6.0 % LIPID [id number] 00:00:00* Test Item Value Reference Range Interpretation Comme nts CHOLESTEROL (test code = 2210) 202 MG/DL TRIGLYCERIDES (test code = 2232) 118 MG/DL HDL CHOLESTEROL (test code = 2220) 61 MG/DL CALC LDL CHOL (test code = 2237) 118 MG/DL RISK RATIO LDL/HDL (test cod e = 2238) 1.93 RATIO COMPREHENSIVE METABOLIC [id number] 00:00:00* Test Item Value Reference Range Interpretation Comme nts GLUCOSE (test code = 2217) 80 MG/DL BUN (test code = 2208) 22 MG/DL CREATININE (test code = 2214) 0.70 MG/DL eGFR AMER. (test cod e = 51523) 115 ML/MIN/1.73 eGFR NON- AMER. (test code = 15429) 99 ML/MIN/1.73 CALC BUN/CREAT (test code = [...] 52 U/L Notes Date/Time Note Provider Source 2023-11-30 11:09:04 Chief Complaint Patient presents with Follow-up 2 month follow up. Pt states that condition has remained controlled since [facility] 10/12/2023. Pt reports that her insurance no longer wants to cover Rx Cimzia, needs to discuss other options for medications. Pain level 0/10 Pt states that she has been off Rx Cimzia for 1 month. Dang Ospina CMA I T [facility] 2023-10-12 10:12:33 Chief Complaint Patient presents with Follow-up Test 6 week follow up. Pt states that condition has improved since [facility] 08/31/2023. Pt reports Pain level 4/10. Ilya Choudhary MA II T Ilya Choudhary MA, II [facility] 2023-08-31 14:52:49 Chief Complaint Patient presents with Follow-Up Visit Pt c/o body swelling and pain in legs x 6 weeks. [facility] 2023-07-13 14:35:04 Chief Complaint Patient presents with Follow-up 2 month f/u, rheumatoid arthritis. Pt reports condition has not improved, reports that swelling has increased. [facility] 05/11/2023 Pt would like to consult if the medications are what is causing her extra swelling. Dang Ospina CMA I [facility] 2023-05-30 19:42:55 Pt given printed and [...] in no apparent distress Larisa Melendez RN [facility] 2023-05-30 18:51:16 Handoff report given to Aubrie Melendez RN Jennifer Caro RN [facility] 2023-05-30 17:47:27 Pt arrived via private car with c/o hives and itching, states she took benadryl this morning. States she started a new arthritis medicine yesterday. States she has had hives like this before and never figured out what she was allergic to. Angeli Sifuentes RN [facility] 2023-05-21 15:41:16 Chief Complaint Patient presents with Cough Cough for 2 weeks. Coughing up thick green mucus. Right ear has a lot of pressure Julieta L Ivory, OPERATIONS SUPPORT ANALYST [facility] 2023-05-11 10:54:29 Chief Complaint Patient presents with Follow-up 1 month f/u, Rheumatoid Arthritis. Pt reports she has not been feeling better since [facility] 04/06/2023. Pt states the medications Rx are not helping much. Pt wants to consult over her medications from outside rheumatology facility. Dang Ospina CMA I [facility] 2023-04-06 10:24:14 Chief Complaint Patient presents with Rheumatoid Arthritis Pt has pain all over her body. Pt has had condition for 7-10 years. Pt has taken Humira, Methotrexate 25Mg, Prednisone 5Mg for the pain. Dang Ospina CMA I [facility]"
[2023-12-17 12:37] LABS: Absolute Basophils 0.1 K/uL (0-0.5); Absolute Lymphocytes (CBC) 2.9 K/uL (0.7-4.9); Absolute Neutrophil 6.5 K/uL (1.8-8.0); Basophils % 0.7 % (0-1.3); Eosinophils % 0.3 % (0-4.4); Hemoglobin 13.6 g/dL (12.0-15.0); Lymphocytes % 27.7 % (15.3-44.8); MCH 28.8 pg (27.0-35.0); MCHC 32.4 g/dL (32.0-36.0); MPV 8.4 fL (7.6-11.3); Monocytes % 9.2 % (3.3-12.3); Neutrophils % 62.1 % (41.7-73.7); Nucleated Red Blood Cells % 0.1 % (0-0); Platelets 262 thou/uL (152-406); RBC Red Blood Cell Count 4.72 M/uL (3.86-4.86); Red Cell Distribution Width 14.2 % (12.1-15.2)
[2023-12-17 12:51] LABS: SARS-CoV-2 Antigen CONTROL BLUE LINE VIS/BG OK
[2023-12-17 12:54] LABS: SARS-CoV-2 Antigen Rapid Res Positive (Negative)
[2023-12-17 12:55] LABS: Albumin 3.3 g/dL (3.4-5.0); Albumin/Globulin Ratio 0.8 (1.1-1.8); Anion Gap 8.1 mEq/L (5.0-15.0); Bilirubin Total 0.7 mg/dL (0.2-1.0); Globulin 4.1 g/dL (2.3-3.5); Potassium 3.1 mEq/L (3.5-5.1); Protein, Total 7.4 g/dL (6.4-8.2)
--- NOTE | 2023-12-17 12:58 | RAD REPORT ---
EXAMINATION: TWO VIEW CHEST XR CLINICAL INDICATION: COUGH TECHNIQUE: 2 views of the chest was performed. COMPARISON: 11/27/2023 FINDINGS: The lungs are hyperexpanded suggesting COPD. The heart is normal in size. No displaced fractures evid ent. IMPRESSION: COPD is suspected without acute finding identified. The USPSTF recommends annual screening for lung cancer with low-dose computed tomography (LDCT) in ad ults aged 50 to 80 years who have a 20 pack-year smoking history and currently smoke or have quit within the past 15 years. Screening should be discontinued once a person has not smoked for 15 years or develops a health problem that substantially limits life expectancy or the ability or willingness to have curative lung surgery.
[2023-12-17] MEDS ORDERED: IBUPROFEN 400 MG TAB ONE (13:10)
[2023-12-17] MEDS ORDERED: AZITHROMYCIN 250 MG TAB ONE (13:10)
[2023-12-17] MEDS ORDERED: FAMOTIDINE 20 MG TAB ONE (13:10)
--- NOTE | 2023-12-17 15:03 | EDPHYS ---
Physician Documentation [facility] Name: Pearl Bolden Age: 58 yrs Sex: Female : 1965 Arrival Date: 12/17/2023 Time: 12:00 Bed 10 Private MD: ED Physician Kristofer Farrell HPI: 12/16 13:02 This 58 yrs old Female presents to ER via Ambulatory with complaints of Cough. mary 13:02 The patient or guardian reports cough. mary Historical: - Allergies: 12:34 No Known Allergies; iw - PMHx: 12:34 Arthritis; Diabetes mellitus; iw - PSHx: 12:34 Cholecystectomy; iw - Family history:: not pertinent. ROS: 14:56 Eyes: Negative for injury, pain, redness, and discharge, ENT: Negative for injury, mary pain, and discharge, Neck: Negative for injury, pain, and swelling, Cardiovascular: Negative for chest pain, palpitations, and edema, Abdomen/GI: Negative for abdominal pain, nausea, vomiting, diarrhea, and constipation, Back: Negative for injury and pain, : Negative for injury, bleeding, discharge, and swelling, MS/Extremity: Negative for injury and deformity, Skin: Negative for injury, rash, and discoloration, Neuro: Negative for headache, weakness, numbness, tingling, and seizure, Psych: Negative for depression, anxiety, suicide ideation, homicidal ideation, and hallucinations, Allergy/Immunology: Negative for hives, rash, and allergies, Endocrine: Negative for neck swelling, polydipsia, polyuria, polyphagia, and marked weight changes, Hematologic/Lymphatic: Negative for swollen nodes, abnormal bleeding, and unusual bruising, 14:56 Constitutional: Positive for chills, fatigue, fever, malaise, 14:56 Respiratory: Positive for cough, "sounds productive", Exam: 14:56 Constitutional: This is a well developed, well nourished patient who is awake, alert, mary and in no acute distress. Head/Face: Normocephalic, atraumatic. Eyes: Pupils equal round and reactive to light, extra-ocular motions intact. Lids and lashes normal. Conjunctiva and sclera are non-icteric and not injected. Cornea within normal limits. Periorbital areas with no swelling, redness, or edema. ENT: Nares patent. No nasal discharge, no septal abnormalities noted. Tympanic membranes are normal and external auditory canals are clear. Oropharynx with no redness, swelling, or masses, exudates, or evidence of obstruction, uvula midline. Mucous membranes moist. Neck: Trachea midline, no thyromegaly or masses palpated, and no cervical lymphadenopathy. Supple, full range of motion without nuchal rigidity, or vertebral point tenderness. No Meningismus. Chest/axilla: Normal chest wall appearance and motion. Nontender with no deformity. No lesions are appreciated. Cardiovascular: Regular rate and rhythm with a normal S1 and S2. No gallops, murmurs, or rubs. Normal PMI, no JVD. No pulse deficits. Abdomen/GI: Soft, non-tender, with normal bowel sounds. No distension or tympany. No guarding or rebound. No evidence of tenderness throughout. Back: No spinal tenderness. No costovertebral tenderness. Full range of motion. Female : Normal external genitalia. Skin: Warm, dry with normal turgor. Normal color with no rashes, no lesions, and no evidence of cellulitis. MS/ Extremity: Pulses equal, no cyanosis. Neurovascular intact. Full, normal range of motion. Neuro: Awake and alert, GCS 15, oriented to person, place, time, and situation. Cranial nerves II-XII grossly intact. Motor strength 5/5 in all extremities. Sensory grossly intact. Cerebellar exam normal. Normal gait. Psych: Awake, alert, with orientation to person, place and time. Behavior, mood, and affect are within normal limits. 14:56 Respiratory: the patient does not display signs of respiratory distress, Respirations: no acute changes, is not noted, Breath sounds: bronchial sounds, that are mild, are scattered, decreased breath sounds, that are mild, are scattered, rhonchi, that are mild, are scattered, stridor, is not appreciated, + upper airway congestion. wheezing: expiratory 15:00 ECG was reviewed by the Attending Physician. [facility] 15:00 Musculoskeletal/extremity: Circulation is intact in all extremities. Sensation intact. Compartment Syndrome exam of affected extremity: is normal. Weight bearing: able to fully bear weight, DVT Exam: No signs of deep vein thrombosis. no pain, no swelling, no tenderness, negative Homans' sign noted on exam, no appreciated bluish discoloration, no erythema, no increased warmth, Vital Signs: 12:33 BP 114 / 63; Pulse 125; Resp 18; Temp 99.5; Pulse Ox 96% on R/A; Weight 90.72 kg; iw Height 5 ft. 3 in. ; Pain 8/10; 13:25 BP 132 / 68; Pulse 116; Resp 18; Temp 98.2; Pulse Ox 100% ; iw 12:33 Body Mass Index 35.43 (90.72 kg, 160.02 cm) iw 12:33 Pain Scale: Adult iw MDM: 12:04 Medical Screening Exam initiated mary 14:58 Differential Diagnosis: Obstructed Airway Bronchitis Influenza Upper Respiratory mary Infection Pharyngitis Otitis Media Asthma Exacerbation Viral Syndrome Pneumonia Tracheal Injury. Data reviewed: vital signs, nurses notes, lab test result(s), EKG, radiologic studies, plain films. Consideration of Admission/Observation Patient was admitted/placed on observation. Escalation of care including admission/observation considered. I considered the following discharge prescriptions or medication management in the emergency department Medications were administered in the Emergency Department. See MAR. Independent interpretation of the following test(s) in the Emergency Department EKG: See my EKG interpretation above X-Ray: My interpretation is cxr. Test considered but Not performed: CT: no ct chest. Historians other than the Patient: pt well informed. Care significantly affected by the following chronic conditions: Diabetes, Obesity. Counseling: I had a detailed discussion with the patient and/or guardian regarding the historical points, exam findings, and any diagnostic results supporting the discharge/admit diagnosis, lab results, radiology results, the need for outpatient follow up, for definitive care, 12/16 12:05 Order name: CBC with Diff; Complete Time: 13:00 [facility] 12/16 12:05 Order name: Comprehensive Metabolic Panel; Complete Time: 13:00 [facility] 12/16 12:05 Order name: Flu; Complete Time: 13:00 [facility] 12/16 12:05 Order name: SARS RAPID; Complete Time: 13:00 [facility] 12/16 12:05 Order name: Chest Pa And Lat (2 Views) XRAY; Complete Time: 13:00 [facility] 12/16 12:05 Order name: EKG; Complete Time: 12:05 [facility] 12/16 12:05 Order name: EKG - Nurse/Tech; Complete Time: 13:25 [facility] 12/16 12:05 Order name: IV Saline Lock - Large Bore; Complete Time: 12:28 mary EC:00 Rate is 119 beats/min. Rhythm is regular. QRS [place] is Normal. WA interval is normal. mary QRS interval is normal. QT interval is normal. No Q waves. T waves are Normal. No ST changes noted. Clinical impression: Sinus tachycardia and No evidence of ischemia. Interpreted by me. Reviewed by me. Administered Medications: 13:24 Drug: Famotidine PO 40 mg PO once Route: PO; iw 13:25 Drug: AZITHromycin PO 500 mg PO once Route: PO; iw 13:25 Drug: Ibuprofen PO 800 mg PO once Route: PO; iw 15:55 Drug: Potassium PO Effervescent Tablet 50 mEq PO once; dissolve in 4 ounces of water or iw juice Route: PO; 15:55 Drug: Levalbuterol Inhalation 2.5 mg Inhalation once Route: Inhalation; iw 15:55 Drug: MethylPrednisoLONE IVP 125 mg IVP once Route: IVP; Site: right antecubital; iw 15:55 Drug: Oseltamivir PO 75 mg PO once Route: PO; iw 23:32 Not Given (Other Intervention Used): [id number] mg PO once iw Disposition Summary: 12/17/23 15:02 Discharge Ordered Notes: Location: Home mary Problem: new mary Symptoms: have improved mary Condition: Stable mary Diagnosis - Acute upper respiratory infection, unspecified mary - SARS-associated coronavirus as the cause of diseases classified elsewhere mary - Influenza due to other identified influenza virus with other manifestations - mary INFLUENZA B - Hypokalemia mary - Fever, unspecified mary Followup: mary - With: Private Physician - When: 2 - 3 days - Reason: Recheck today's complaints, Continuance of care, Re-evaluation by your physician Followup: mary - With: Nick Florentino MD - When: 2 - 3 days - Reason: Recheck today's complaints, Re-evaluation by your physician Discharge Instructions: - Discharge Summary Sheet mary - Potassium Content of Foods mary - Fever, Adult mary - Influenza, Adult mary - Upper Respiratory Infection, Adult mary - Upper Respiratory Infection, Adult, Bmuh-tg-[id number] mary - Influenza, Adult, Orbl-ti-Bahj mary - Cough, Adult, Iuyr-xy-Wyqq mary - Aspirin and Your Heart mary - Cough, Adult mary - Fever, Adult, Dyiu-rj-Xksq mary - Hypokalemia mary - COVID-19 mary - COVID-19: What Your Test Results Mean - [facility] (11/09/2020) mary - Symptoms of COVID-19 - [facility] (05/03/2021) [facility] - Stay Up to Date With Your COVID-19 Vaccines - [facility] (06/02/2021) [facility] Forms: - Medication Reconciliation Form [facility] - Antibiotic Education mary - Prescription Opioid Use mary - Patient Portal Instructions [facility] - Leadership Thank You Letter [facility] - Work release form [email or web address] Prescriptions: - Paxlovid 300 mg (150 mg x 2)-100 mg Oral Tablet, Dose Pack - take 1 dose pack ORAL route as directed on dose pack take TWO 150 mg tablets of mary nirmatrelvir with ONE 100 mg tablet of ritonavir twice daily for 5 days; 30 tablet; Refills: 0, Product Selection Permitted - budesonide-formoterol 160-4.5 mcg/actuation Inhalation HFA Aerosol Inhaler - inhale 2 inhalation INHALATION route 2 times per day; 1 unit; Refills: 0, [facility] Product Selection Permitted - Pepcid 20 mg Oral tablet - take 1 tablet ORAL route every 12 hours for 10 days; 60 tablet; Refills: 0, [facility] Product Selection Permitted - Tessalon Perles 100 mg Oral capsule - take 1 capsule ORAL route every 8 hours As needed; 30 capsule; Refills: 0, [facility] Product Selection Permitted - Zithromax Z-Aung 250 mg Oral Tablet - take 1 tablet ORAL route as directed for 5 days Day 1 - take two (2) tablets mary one time. Day 2, 3, 4 , 5 take one (1) tablet once daily.; 6 tablet; Refills: 0, Product Selection Permitted - Prednisone 20 mg Oral Tablet - take 2 tablets ORAL route once daily for 5 days; 10 tablet; Refills: 0, Product mary Selection Permitted - Tamiflu 75 mg Oral capsule - take 1 tablet ORAL route every 12 hours for 5 days; 10 tablet; Refills: 0, [facility] Product Selection Permitted - Guaifenesin AC 10-100 mg/5 mL Oral liquid - take 5 milliliter ORAL route every 4-6 hours As needed; 160 milliliter; [facility] Refills: 0, Product Selection Permitted Signatures: Dispatcher [employer] Kristofer Brar MD MD cha Williams, Irene, RN RN iw
--- NOTE | 2023-12-17 15:03 | ER ---
Nurse's Notes [facility] Name: Pearl Bolden Age: 58 yrs Sex: Female : 1965 Arrival Date: 12/17/2023 Time: 12:00 Bed 10 Private MD: Diagnosis: Acute upper respiratory infection, unspecified;SARS-associated coronavirus as the cause of diseases classified elsewhere;Influenza due to other identified influenza virus with other manifestations-INFLUENZA B;Hypokalemia;Fever, unspecified Presentation: 12/16 12:33 Chief complaint: Patient states: cough, fever, vomiting for 4 weeks. Coronavirus iw screen: Client presents with at least one sign or symptom that may indicate coronavirus-19. Ebola Screen: No symptoms or risks identified at this time. Initial Sepsis Screen: Does the patient meet any 2 criteria? HR > 90 bpm. Does the patient have a suspected source of infection?. Risk Assessment: Do you want to hurt yourself or someone else? Patient reports no desire to harm self or others. Onset of symptoms was November 2023. 12:33 Method Of Arrival: Ambulatory iw 12:33 Acuity: RED 3 iw Triage Assessment: 12:30 General: Appears in no apparent distress. Behavior is calm, appropriate for age. iw Historical: - Allergies: 12:34 No Known Allergies; iw - PMHx: 12:34 Arthritis; Diabetes mellitus; iw - PSHx: 12:34 Cholecystectomy; iw - Family history:: not pertinent. Screenin:25 [facility] ED Fall Risk Assessment (Adult) History of falling in the last 3 months, iw including since admission No falls in past 3 months (0 pts) Confusion or Disorientation No (0 pts) Intoxicated or Sedated No (0 pts) Impaired Gait No (0 pts) Mobility Assist Device Used No (0 pt) Altered Elimination No (0 pt) Score/Fall Risk Level 0 - 2 = Low Risk Oriented to surroundings, Maintained a safe environment. Abuse screen: Denies threats or abuse. Denies injuries from another. Nutritional screening: No deficits noted. Tuberculosis screening: No symptoms or risk factors identified. Assessment: 12:30 General: Appears in no apparent distress. Behavior is calm, cooperative. General: iw Reports feeling ill for fatigue for. Pain: Complains of pain in all over body. Neuro: Level of Consciousness is awake, alert, obeys commands, Oriented to person, place, time, situation, Moves all extremities. Cardiovascular: Patient's skin is warm and dry. Respiratory: Reports cough that is Respiratory effort is even, unlabored, Respiratory pattern is regular. Derm: Skin is intact, is healthy with good turgor. Musculoskeletal: Range of motion: intact in all extremities. 13:25 Reassessment: Patient appears in no apparent distress at this time. Patient and/or iw family updated on plan of care and expected duration. Pain level reassessed. Patient is alert, oriented x 3, equal unlabored respirations, skin warm/dry/pink. 16:00 Reassessment: Patient appears in no apparent distress at this time. Patient and/or iw family updated on plan of care and expected duration. Pain level reassessed. Patient is alert, oriented x 3, equal unlabored respirations, skin warm/dry/pink. Patient states feeling better. Patient states symptoms have improved. Vital Signs: 12:33 BP 114 / 63; Pulse 125; Resp 18; Temp 99.5; Pulse Ox 96% on R/A; Weight 90.72 kg; iw Height 5 ft. 3 in. ; Pain 8/10; 13:25 BP 132 / 68; Pulse 116; Resp 18; Temp 98.2; Pulse Ox 100% ; iw 12:33 Body Mass Index 35.43 (90.72 kg, 160.02 cm) iw 12:33 Pain Scale: Adult iw ED Course: 12:03 Patient arrived in ED. ra3 12:03 Kristofer Farrell MD is Attending Physician. [facility] 12:27 Initial lab(s) drawn, by ak, sent to lab. Inserted saline lock: 20 gauge in right zm antecubital area, using aseptic technique. Blood collected. Flushed with 10 mL NS. 12:27 COVID swab sent to lab. Flu and/or RSV swab sent to lab. zm 12:28 SARS RAPID Sent. zm 12:28 Flu Sent. zm 12:28 Comprehensive Metabolic Panel Sent. zm 12:28 CBC with Diff Sent. zm 12:30 Patient's name was called from ER lobby. No response. aa5 12:30 Arm band placed on. iw 12:30 Patient has correct armband on for positive identification. Provided Education on: . iw 12:34 Triage completed. iw 12:53 Chest Pa And Lat (2 Views) XRAY In Process Unspecified. EDIA 13:04 Jania Gamez, RN is Primary Nurse. iw 15:02 Nick Florentino MD is Referral Physician. [facility] 16:25 No provider procedures requiring assistance completed. IV discontinued, intact, iw bleeding controlled, No redness/swelling at site. Pressure dressing applied. Administered Medications: 13:24 Drug: Famotidine PO 40 mg PO once Route: PO; iw 13:25 Drug: AZITHromycin PO 500 mg PO once Route: PO; iw 13:25 Drug: Ibuprofen PO 800 mg PO once Route: PO; iw 15:55 Drug: Potassium PO Effervescent Tablet 50 mEq PO once; dissolve in 4 ounces of water or iw juice Route: PO; 15:55 Drug: Levalbuterol Inhalation 2.5 mg Inhalation once Route: Inhalation; iw 15:55 Drug: MethylPrednisoLONE IVP 125 mg IVP once Route: IVP; Site: right antecubital; iw 15:55 Drug: Oseltamivir PO 75 mg PO once Route: PO; iw 23:32 Not Given (Other Intervention Used): mg PO once iw Medication: 15:55 VIS not applicable for this client. iw Outcome: 15:02 Discharge ordered by . [facility] 16:25 Discharged to home ambulatory, iw 16:25 Condition: good 16:25 Discharge instructions given to patient, Instructed on discharge instructions, follow up and referral plans. medication usage, Demonstrated understanding of instructions, follow-up care, medications, Prescriptions given X 4, 16:26 Patient left the ED. iw Signatures: Dispatcher [employer] [facility] Kristofer Farrell MD MD cha Williams, Irene, RN RN Kiki Menon RN RN aa5 Verena Henderson Ruby ra3
[2023-12-17] MEDS ORDERED: LEVALBUTEROL 1.25 MG/3 ML NEB ONE (15:46)
[2023-12-17] MEDS ORDERED: predniSONE 20 MG TAB ONE (15:46)
[2023-12-17] MEDS ORDERED: METHYLPREDNISOLONE 125 MG INJ ONE (15:46)
[2023-12-17] MEDS ORDERED: OSELTAMIVIR 75 MG CAP PO ONE (15:47)
[2023-12-17] MEDS ORDERED: POTASSIUM 25 MEQ EFFERV TAB ONE (15:47)
[2023-12-17 16:48] VITALS: BP 132/68; TEMP 98.2; O2SAT 100
--- NOTE | 2023-12-18 12:20 | EKG ---
Test Date: 2023-12-17 Test Time: 13:21:37 Hide Handler: MARTIN MEASUREMENT RESULTS: Intervals: Rate: 119 [place]: 120 QRSD: 74 QT: 304 QTc: 427 [place]: P: 31 [place]: 120 QRS: 36 T: 31 INTERPRETIVE STATEMENTS: Sinus tachycardia Possible Left atrial enlargement Low voltage QRS Borderline ECG Compared to ECG 11/27/2023 14:46:22 Low QRS voltage now present Sinus rhythm no longer present Electronically Signed On 12-18-23 12:17:11 [employer] RE[employer] by Minesh Cross
== END 2023-12-17 16:26 | disposition home or self-care (01) ==
LOC: ER 12:00
DX: U07.1 COVID-19 (principal); J10.1 Influenza due to other identified influenza virus with other respiratory manifestations; E87.6 Hypokalemia; E11.9 Type 2 diabetes mellitus without complications
CPT/HCPCS: 93005; 85025; 36415; 80053; 87804 ×2; 71046; 87811; J7512; J7614; J2919; 96374; 99285